=== PATIENT | female | born 1955 | race Caucasian/White ===

== ENCOUNTER 2017-08-07 12:17 | Emergency (ER) | payer MEDICARE, MEDICAID ==
[~2017-08-07] VITALS: Ht 152.4 cm; Wt 80.9 kg
[2017-08-07 12:29] VITALS: BP 165/89
--- NOTE | 2017-08-07 12:59 | RAD ---
Left wrist, 3 views, 10/07/2017: History: Wrist pain, injury There is cortical irregularity along the dorsal aspect of the triquetrum, probably old. An underlying degenerative cyst may be giving this appearance. No definite acute fracture or dislocation is identified. There is mild soft tissue swelling. IMPRESSION: No acute bony abnormality is detected.
[2017-08-07] MEDS ORDERED: HYDR-971 PO (13:07)
--- NOTE | 2017-08-07 13:07 | PHYS DOC ---
Past History Past Medical History: Arthritis, COPD, Diabetes Past Surgical History: Hysterectomy, Other Alcohol Use: Rarely Drug Use: None Adult General Chief Complaint Chief Complaint: WRIST PAIN HPI HPI Patient is a 62-year-old female presenting to the emergency department for evaluation of left wrist pain that started yesterday after lifting a heavy box. It starts over the radius and radiates towards the ulna. No weakness numbness or tingling. She has had a stress fracture before in the past on that wrist. No obvious deformity noted. Review of Systems Review of Systems Constitutional: Denies fever or chills [] Musculoskeletal: + joint pain [] Neurologic: Denies focal weakness or sensory changes [] Allergies Allergies Allergies Coded Allergies Type Severity Reaction Last Updated Verified sulfamethoxazole Allergy Unknown 08/07/17 Yes trimethoprim Allergy Unknown 08/07/17 Yes Physical Exam Physical Exam Constitutional: Well developed, well nourished, no acute distress, non-toxic appearance. [] Extremities: Pain to palpation over her scaphoid and there is pain with axial loading although there is no obvious deformity. Neurologic: Alert and oriented X 3, normal motor function, normal sensory function, no focal deficits noted. [] Current Patient Data Vital Signs Vital Signs Date Time Temp Pulse Resp B/P (MAP) Pulse Ox O2 Delivery O2 Flow Rate FiO2 08/07/17 12:29 98.6 109 20 96 Room Air EKG EKG [] Radiology/Procedures Radiology/Procedures Left knee, 3 views, 08/07/2017: History: Fall, knee pain No fracture or dislocation is identified. The soft tissues are unremarkable. IMPRESSION: No acute left knee abnormality is detected. DICTATED AND SIGNED BY: JEREMI LOVING MD DATE: 08/07/17 1257 Course & Med Decision Making Course & Med Decision Making X-ray negative and exam is benign such she'll be put in a wrist brace and told to follow with a primary care provider in one week as she could have a scaphoid fracture not seen on initial imaging. Patient aware and agreeable with plan for discharge and verbalized understanding of the need for short-term follow-up in the strict ED return precautions discussed worsening pain weakness or other general concerns. Dragon Disclaimer Dragon Disclaimer This chart was dictated in whole or in part using Voice Recognition software in a busy, high-work load, and often noisy Emergency Department environment. It may contain unintended and wholly unrecognized errors or omissions. Departure Departure: Impression: Primary Impression: Sprain of wrist, left Disposition: 01 HOME, SELF-CARE Condition: STABLE Referrals: PCP,ISAIAH (PCP) Patient Instructions: Wrist Pain Additional Instructions: TAKE 400MG OF IBUPROFEN EVERY 6 HOURS AND THE NORCO FOR BREAKTHROUGH PAIN. FOLLOW WITH A PCP IN 1 WEEK TO ENSURE IMPROVEMENT. THANK YOU! Scripts Hydrocodone Bit/Acetaminophen (NORCO 5-325 TABLET) 1 Each Tablet 1 TAB PO PRN Q6HRS Y for PAIN, #10 TAB 0 Refills Prov: NADYA QUEEN DO 08/07/17 Problem Qualifiers Primary Impression: Sprain of wrist, left Encounter type: initial encounter Qualified Codes: S63.502A - Unspecified sprain of left wrist, initial encounter NADYA QUEEN DO Aug 07, 2017 13:07
== END 2017-08-07 13:15 | disposition home or self-care (01) ==
LOC: ER 12:17
DX: S63.502A Unspecified sprain of left wrist, initial encounter (principal); E11.9 Type 2 diabetes mellitus without complications; J44.9 Chronic obstructive pulmonary disease, unspecified; M19.90 Unspecified osteoarthritis, unspecified site; Z88.1 Allergy status to other antibiotic agents; X58.XXXA Exposure to other specified factors, initial encounter; Y93.89 Activity, other specified; Y99.8 Other external cause status; Y92.89 Other specified places as the place of occurrence of the external cause
CPT/HCPCS: 29125; 73110; 99284-25

== ENCOUNTER 2017-08-15 11:35 | Emergency (ER) | payer MEDICARE, MEDICAID ==
[~2017-08-15 11:35] MED LIST: HYDR-971 PO
[2017-08-15 11:41] VITALS: BP 187/82
[2017-08-15] MEDS ORDERED: IV RINGERS SOLUTION,LACTATED 1,000 ML IV SCH (11:45)
[2017-08-15] MEDS ORDERED: ONDANSETRON PF 4 MG/2 ML VIAL. IV ONE (12:00)
[2017-08-15 12:09] LABS: BASO % 0 % (0-3); EOS % 0 % (0-3); HEMOGLOBIN 16.8 g/dL (12.0-15.5); LYMPH # 0.5 x10^3/uL (1.0-4.8); LYMPH % 3 % (24-48); MEAN CORPUSCULAR HEMOGLOBIN 32 pg (25-35); MEAN CORPUSCULAR HGB CONC 34 g/dL (31-37); MEAN CORPUSCULAR VOLUME 93 fL (79-100); MONO # 0.3 x10^3/uL (0.0-1.1); MONO % 2 % (0-9); NEUT # 13.4 x10^3uL (1.8-7.7); NEUT % 94 % (31-73); PLATELET COUNT 334 x10^3/uL (140-400); RED BLOOD COUNT 5.27 x10^6/uL (3.50-5.40); RED CELL DISTRIBUTION WIDTH 15.1 % (11.5-14.5); WHITE BLOOD COUNT 14.3 x10^3/uL (4.0-11.0)
[2017-08-15 12:28] LABS: ALBUMIN 3.8 g/dL (3.4-5.0); ALBUMIN/GLOBULIN RATIO 1.1 (1.0-1.7); CALCIUM 9.4 mg/dL (8.5-10.1); CREATININE 0.7 mg/dL (0.6-1.0); GFR 85.4; POTASSIUM 4.4 mmol/L (3.5-5.1); TOTAL BILIRUBIN 0.4 mg/dL (0.2-1.0); TOTAL PROTEIN 7.3 g/dL (6.4-8.2)
--- NOTE | 2017-08-15 13:28 | PHYS DOC ---
Past History Past Medical History: COPD, Hypertension Past Surgical History: Hysterectomy, Other Alcohol Use: Occasionally Drug Use: None Adult General Chief Complaint Chief Complaint: DIZZY/LIGHT HEADED HPI HPI Patient is a 62-year-old female brought to the ED from home by EMS with the complaint of vomiting and lightheadedness. Patient began to vomit in the middle the night last night. She believe she has vomited 20 or 30 times. No diarrhea. No fever. No else at home is sick. Her abdomen is sore after all the vomiting, but the vomiting started first and her abdomen doesn't hurt that bad. Review of Systems Review of Systems Constitutional: Denies fever or chills [] HENT: Denies nasal congestion or sore throat [] Respiratory: Denies cough or shortness of breath [] Cardiovascular: Denies chest pain GI: As in history of present illness : Denies dysuria or hematuria [] Musculoskeletal: Denies back pain or joint pain [] Integument: Denies rash or skin lesions [] Neurologic: Denies headache, focal weakness or sensory changes [] Current Medications Current Medications Current Medications Medications (Trade) Dose Ordered Sig/Nicolás Start Time Stop Time Status Last Admin Dose Admin Lactated Ringer's 1,000 ml @ 1,000 mls/hr Q1H 08/15/17 11:45 08/15/17 12:13 DC 08/15/17 11:55 1,000 MLS/HR Ondansetron HCl (Zofran) 4 mg 1X ONCE 08/15/17 12:00 08/15/17 12:01 DC Allergies Allergies Allergies Coded Allergies Type Severity Reaction Last Updated Verified sulfamethoxazole Allergy Unknown 08/07/17 Yes trimethoprim Allergy Unknown 08/07/17 Yes Physical Exam Physical Exam Constitutional: Well developed, well nourished, no acute distress, non-toxic appearance. Alert, mentating normally, no vomiting on arrival to the ED. HENT: Normocephalic, atraumatic, bilateral external ears normal, nose normal. [] Eyes: conjunctiva normal, no discharge. [] Neck: Normal range of motion, no stridor. [] Cardiovascular:Heart rate regular rhythm, no murmur not tachycardic Lungs & Thorax: Bilateral breath sounds clear to auscultation [] Abdomen: Bowel sounds normal, soft, nondistended, no masses, no pulsatile masses. Abdomen essentially nontender with no rebound or guarding. Skin: Warm, dry, no erythema, no rash. [] Extremities: No tenderness, no cyanosis, no clubbing, ROM intact, no edema. [] Neurologic: Alert and oriented X 3, normal motor function, no focal deficits noted. [] Current Patient Data Vital Signs Vital Signs Date Time Temp Pulse Resp B/P (MAP) Pulse Ox O2 Delivery O2 Flow Rate FiO2 08/15/17 11:41 98.1 16 96 Room Air Lab Results Laboratory Tests Test 08/15/17 11:55 White Blood Count 14.3 x10^3/uL (4.0-11.0) H Red Blood Count 5.27 x10^6/uL (3.50-5.40) Hemoglobin 16.8 g/dL (12.0-15.5) H Hematocrit 49.0 % (36.0-47.0) H Mean Corpuscular Volume 93 fL (79-100) Mean Corpuscular Hemoglobin 32 pg (25-35) Mean Corpuscular Hemoglobin Concent 34 g/dL (31-37) Red Cell Distribution Width 15.1 % (11.5-14.5) H Platelet Count 334 x10^3/uL (140-400) Neutrophils (%) (Auto) 94 % (31-73) H Lymphocytes (%) (Auto) 3 % (24-48) L Monocytes (%) (Auto) 2 % (0-9) Eosinophils (%) (Auto) 0 % (0-3) Basophils (%) (Auto) 0 % (0-3) Neutrophils # (Auto) 13.4 x10^3uL (1.8-7.7) H Lymphocytes # (Auto) 0.5 x10^3/uL (1.0-4.8) L Monocytes # (Auto) 0.3 x10^3/uL (0.0-1.1) Eosinophils # (Auto) 0.0 x10^3/uL (0.0-0.7) Basophils # (Auto) 0.0 x10^3/uL (0.0-0.2) Sodium Level 138 mmol/L (136-145) Potassium Level 4.4 mmol/L (3.5-5.1) Chloride Level 102 mmol/L (98-107) Carbon Dioxide Level 27 mmol/L (21-32) Anion Gap 9 (6-14) Blood Urea Nitrogen 12 mg/dL (7-20) Creatinine 0.7 mg/dL (0.6-1.0) Estimated GFR (Cockcroft-Gault) 85.4 BUN/Creatinine Ratio 17 (6-20) Glucose Level 178 mg/dL (70-99) H Calcium Level 9.4 mg/dL (8.5-10.1) Total Bilirubin 0.4 mg/dL (0.2-1.0) Aspartate Amino Transferase (AST) 18 U/L (15-37) Alanine Aminotransferase (ALT) 23 U/L (14-59) Alkaline Phosphatase 120 U/L (46-116) H Troponin I Quantitative < 0.017 ng/mL (0-0.055) Total Protein 7.3 g/dL (6.4-8.2) Albumin 3.8 g/dL (3.4-5.0) Albumin/Globulin Ratio 1.1 (1.0-1.7) Lipase 69 U/L (73-393) L EKG EKG 12-lead EKG read by me. Sinus rhythm. Heart rate 85. Right bundle branch block. There are T wave abnormalities consistent with repolarization change. There are no acute ST elevations or depressions. There are no ST or T wave changes indicative of ischemia or infarction. No STEMI. 1146[] Radiology/Procedures Radiology/Procedures [] Course & Med Decision Making Course & Med Decision Making Pertinent Labs and Imaging studies reviewed. (See chart for details) 62-year-old female visited with multiple episodes of vomiting and feeling dizzy and lightheaded. She was given a liter of IV fluids. She did not have any vomiting in the ED. Labs unremarkable for acute findings. She may have food poisoning or viral gastroenteritis. It seems like her symptoms are resolving. I believe she is stable for discharge. See instructions for plan. [] Dragon Disclaimer Dragon Disclaimer This chart was dictated in whole or in part using Voice Recognition software in a busy, high-work load, and often noisy Emergency Department environment. It may contain unintended and wholly unrecognized errors or omissions. Departure Departure: Impression: Primary Impression: Viral gastroenteritis Disposition: 01 HOME, SELF-CARE Condition: IMPROVED Referrals: PCP,ISAIAH (PCP) Patient Instructions: Viral Gastroenteritis, Wjbb-to-Edbh MJ MYERS MD Aug 15, 2017 13:28
--- NOTE | 2017-08-15 18:32 | EKG ---
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
== END 2017-08-15 13:48 | disposition home or self-care (01) ==
LOC: ER 11:35
DX: A08.4 Viral intestinal infection, unspecified (principal); I10 Essential (primary) hypertension; J44.9 Chronic obstructive pulmonary disease, unspecified; Z88.1 Allergy status to other antibiotic agents
CPT/HCPCS: 36415; 80053; 83690; 84484; 85025; 93005; 96360; 99285; J7120

== ENCOUNTER 2017-08-26 13:53 | Inpatient (IN) | payer MEDICAID, MEDICARE ==
[~2017-08-26] VITALS: Ht 152.4 cm; Wt 87.7 kg
[2017-08-26] VITALS (7 sets, daily range): BP systolic 153–192; BP diastolic 69–83
[2017-08-26] MEDS ORDERED: methylPREDNISolone SOD SUCC PF 125 MG/2 ML VIAL. IV ONE (14:30)
--- NOTE | 2017-08-26 14:35 | RAD ---
Portable chest, 08/26/2017: History: Respiratory distress The heart size and pulmonary vascularity are normal. No pulmonary infiltrates are seen. There is no evidence of pleural fluid. IMPRESSION: No acute cardiopulmonary abnormality is detected.
--- NOTE | 2017-08-26 14:40 | PHYS DOC ---
Past History Past Medical History: COPD, Hypertension Past Surgical History: Hysterectomy, Other Alcohol Use: None Drug Use: None Adult General Chief Complaint Chief Complaint: SHORTNESS OF BREATH HPI HPI Patient is a 62 year old female who presents with complaint of shortness of breath. Patient states that she started having symptoms yesterday but states that they became rapidly worse starting today. Patient has history of COPD. Patient states that she is not on oxygen dependent. The patient was brought to the emergency department by EMS. Patient was found to have low oxygen saturation in the 80s prior to arrival. Patient was placed on nasal cannula and improved oxygen saturations to 92%. Patient states that she took a breathing treatment at home with no improvement in symptoms. Patient denies any associated fevers or productive cough. Patient states that she started developing chest tightness earlier today with her worsening shortness of breath. Patient states that she currently does not have a primary physician. Review of Systems Review of Systems Constitutional: Denies fever or chills [] Eyes: Denies change in visual acuity, redness, or eye pain [] HENT: Denies nasal congestion or sore throat [] Respiratory: Shortness of breath[] Cardiovascular: Chest tightness[] GI: Denies abdominal pain, nausea, vomiting, bloody stools or diarrhea [] : Denies dysuria or hematuria [] Musculoskeletal: Denies back pain or joint pain [] Integument: Denies rash or skin lesions [] Neurologic: Denies headache, focal weakness or sensory changes [] Current Medications Current Medications Current Medications Medications (Trade) Dose Ordered Sig/Nicolás Start Time Stop Time Status Last Admin Dose Admin Albuterol/ Ipratropium (Duoneb) 6 ml 1X ONCE 08/26/17 14:45 08/26/17 14:46 Methylprednisolone Sodium Succinate (SOLU-Medrol 125MG VIAL) 125 mg 1X ONCE 08/26/17 14:30 08/26/17 14:31 DC Allergies Allergies Allergies Coded Allergies Type Severity Reaction Last Updated Verified sulfamethoxazole Allergy Unknown 08/07/17 Yes trimethoprim Allergy Unknown 08/07/17 Yes Physical Exam Physical Exam Constitutional: Alert, afebrile, appears in mild to moderate respiratory distress. [] HENT: Normocephalic, atraumatic, bilateral external ears normal, oropharynx moist, no oral exudates, nose normal. [] Eyes: PERRLA, EOMI, conjunctiva normal, no discharge. [] Neck: Normal range of motion, no tenderness, supple, no stridor. [] Cardiovascular: Tachycardia, regular rhythm, no murmur [] Lungs & Thorax: Mild to moderate restriction of air movement bilaterally, expiratory wheezes bilaterally, no rales[] Abdomen: Bowel sounds normal, soft, no tenderness, no masses, no pulsatile masses. [] Skin: Warm, dry, no erythema, no rash. [] Back: No tenderness, no CVA tenderness. [] Extremities: No tenderness, no cyanosis, no clubbing, ROM intact, no edema. [] Neurologic: Alert and oriented X 3, normal motor function, normal sensory function, no focal deficits noted. [] Current Patient Data Vital Signs Vital Signs Date Time Temp Pulse Resp B/P (MAP) Pulse Ox O2 Delivery O2 Flow Rate FiO2 08/26/17 14:31 100 20 111/67 (82) 92 Nasal Cannula 2.0 08/26/17 13:53 98.0 EKG EKG Interpreted by me:[] Radiology/Procedures Radiology/Procedures [address] [address] IMAGING REPORT Signed PATIENT: RIMA CHIU ACCOUNT: [id number] : 1955 LOCATION: ER AGE: 62 SEX: F EXAM STATUS: REG ER ORD. PHYSICIAN: PRATIK KRISHNA MD REASON: respiratory distress PROCEDURE: PORTABLE CHEST 1V Portable chest, 08/26/2017: History: Respiratory distress The heart size and pulmonary vascularity are normal. No pulmonary infiltrates are seen. There is no evidence of pleural fluid. IMPRESSION: No acute cardiopulmonary abnormality is detected. DICTATED AND SIGNED BY: JEREMI LOVING MD DATE: 08/26/17 6214 CC: PRATIK KRISHNA MD; PCP,NO ~ [] Course & Med Decision Making Course & Med Decision Making Pertinent Labs and Imaging studies reviewed. (See chart for details) Patient was given albuterol and Solu-Medrol in the emergency department. The patient's chest x-ray was read as negative, however on my interpretation there may be a subtle infiltrate in the left lower lobe. Patient also has evidence of leukocytosis, tachycardia, and lactic acidosis on her workup, raising concern for severe sepsis. Patient started on a 30 mL per kilo bolus in the emergency department. Patient also started on IV Levaquin after blood cultures were drawn for treatment. I spoke with Dr. Spears who accepted care of patient in hospital. Dragon Disclaimer Dragon Disclaimer This chart was dictated in whole or in part using Voice Recognition software in a busy, high-work load, and often noisy Emergency Department environment. It may contain unintended and wholly unrecognized errors or omissions. Departure Departure: Impression: Primary Impression: Community acquired pneumonia Additional Impressions: Severe sepsis COPD with acute exacerbation Hypoxia Alcohol intoxication Disposition: ADMITTED INPATIENT Admitting Physician: Massimo Spears Condition: GUARDED Referrals: PCP,NO (PCP) Problem Qualifiers Primary Impression: Community acquired pneumonia Laterality: left Lung location: lower lobe of lung Qualified Codes: J18.1 - Lobar pneumonia, unspecified organism Additional Impressions: Alcohol intoxication Complication of substance-induced condition: uncomplicated Qualified Codes: F10.920 - Alcohol use, unspecified with intoxication, uncomplicated PRATIK KRISHNA MD Aug 26, 2017 14:40
[2017-08-26 14:44] LABS: BASO # 0.2 x10^3/uL (0.0-0.2); BASO % 1 % (0-3); EOS # 0.1 x10^3/uL (0.0-0.7); EOS % 1 % (0-3); HEMOGLOBIN 15.6 g/dL (12.0-15.5); LYMPH # 1.8 x10^3/uL (1.0-4.8); LYMPH % 13 % (24-48); MEAN CORPUSCULAR HEMOGLOBIN 32 pg (25-35); MEAN CORPUSCULAR HGB CONC 34 g/dL (31-37); MEAN CORPUSCULAR VOLUME 93 fL (79-100); MONO # 0.7 x10^3/uL (0.0-1.1); MONO % 5 % (0-9); NEUT # 11.2 x10^3uL (1.8-7.7); NEUT % 80 % (31-73); PLATELET COUNT 288 x10^3/uL (140-400); RED BLOOD COUNT 4.93 x10^6/uL (3.50-5.40); RED CELL DISTRIBUTION WIDTH 14.8 % (11.5-14.5)
[2017-08-26] MEDS ORDERED: IPRATRPIUM/ALBUTEROL 0.5/2.5MG 3 ML NEBU. NEB ONE (14:45)
[2017-08-26 14:55] LABS: ALBUMIN 3.3 g/dL (3.4-5.0); ALBUMIN/GLOBULIN RATIO 0.9 (1.0-1.7); CREATININE 0.9 mg/dL (0.6-1.0); GFR 63.9; TOTAL BILIRUBIN 0.2 mg/dL (0.2-1.0); TOTAL PROTEIN 7.1 g/dL (6.4-8.2)
[2017-08-26] MEDS: IV NORMAL SALINE 1,000ML 1,000 ML IV SCH ×4 (15:41→19:18)
[2017-08-26] MEDS ORDERED: ONDANSETRON PF 4 MG/2 ML VIAL. IV PRN (16:00)
[2017-08-26] MEDS ORDERED: ACETAMINOPHEN 325 MG TABLET PO PRN (16:00)
[2017-08-26] MEDS ORDERED: IPRATRPIUM/ALBUTEROL 0.5/2.5MG 3 ML NEBU. NEB SCH ×2 (16:00→20:00)
[2017-08-26 16:19] LABS: BILIRUBIN,URINE NEG (NEG); CLARITY,URINE HAZY; COLOR,URINE YELLOW; GLUCOSE,URINE NEG (NEG); NITRITE,URINE NEG (NEG); UROBILINOGEN,URINE 0.2 mg/dL (0.2 mg/dL)
[2017-08-26 16:20] LABS: BACTERIA,URINE FEW /HPF (0-FEW); SQUAMOUS EPITHELIAL CELL,UR MOD /LPF
[2017-08-26] MEDS ORDERED: ALBUTEROL SULFATE 2.5 MG/3 ML NEBU. NEB PRN (17:00)
[2017-08-26] MEDS ORDERED: LORazepam 2 MG/ML VIAL IV PRN (17:00)
[2017-08-26] MEDS ORDERED: DOCU-153 PO (17:25)
[2017-08-26] MEDS ORDERED: OXYB5TAB PO (17:25)
[2017-08-26] MEDS ORDERED: PRAZ2CAP2 PO (17:25)
[2017-08-26] MEDS ORDERED: TRAZ-90 PO (17:25)
[2017-08-26] MEDS ORDERED: CETI10TA16 PO (17:25)
[2017-08-26] MEDS ORDERED: HYDR-2758 PO (17:25)
[2017-08-26] MEDS ORDERED: BUPR-192 PO (17:25)
[2017-08-26] MEDS ORDERED: POTASSIUM CHLORIDE 20 MEQ TABLET.ER. PO ONE (17:30)
[2017-08-26] MEDS: methylPREDNISolone SOD SUCC PF 40 MG/ML VIAL. IV SCH (18:08)
[2017-08-26] MEDS: cloNIDine HCL 0.1 MG TABLET PO PRN (18:11)
--- NOTE | 2017-08-26 19:17 | EKG ---
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
[2017-08-26] MEDS: IPRATRPIUM/ALBUTEROL 0.5/2.5MG 3 ML NEBU. NEB SCH (20:18)
[2017-08-26] MEDS: NICOTINE 21MG PATCH. TD SCH (20:33)
[2017-08-26] MEDS: LACTOBACILLUS ACIDOPH & BULGAR 1 TABLET. PO SCH (20:33)
[2017-08-26 22:37] LABS: POTASSIUM ISTAT 4.2 mmol/L (3.5-5.0)
[2017-08-26 22:38] LABS: HEMOGLOBIN ISTAT 14.6 gm/dL
[2017-08-27] VITALS (20 sets, daily range): BP systolic 143–189; BP diastolic 67–92
[2017-08-27] MEDS: methylPREDNISolone SOD SUCC PF 40 MG/ML VIAL. IV SCH ×4 (00:11→18:48)
[2017-08-27] MEDS: IV NORMAL SALINE 1,000ML 1,000 ML IV SCH ×2 (03:14→08:00)
[2017-08-27] MEDS: IPRATRPIUM/ALBUTEROL 0.5/2.5MG 3 ML NEBU. NEB SCH ×4 (05:34→21:23)
[2017-08-27 06:01] LABS: BASO # 0.1 x10^3/uL (0.0-0.2); BASO % 0 % (0-3); EOS % 0 % (0-3); HEMATOCRIT 44.5 % (36.0-47.0); HEMOGLOBIN 14.9 g/dL (12.0-15.5); LYMPH # 0.9 x10^3/uL (1.0-4.8); LYMPH % 5 % (24-48); MEAN CORPUSCULAR HEMOGLOBIN 32 pg (25-35); MEAN CORPUSCULAR HGB CONC 33 g/dL (31-37); MEAN CORPUSCULAR VOLUME 95 fL (79-100); MONO # 0.1 x10^3/uL (0.0-1.1); MONO % 1 % (0-9); NEUT # 16.9 x10^3uL (1.8-7.7); NEUT % 94 % (31-73); PLATELET COUNT 279 x10^3/uL (140-400); RED BLOOD COUNT 4.69 x10^6/uL (3.50-5.40); RED CELL DISTRIBUTION WIDTH 14.6 % (11.5-14.5)
[2017-08-27 06:23] LABS: ALBUMIN 3.1 g/dL (3.4-5.0); ALBUMIN/GLOBULIN RATIO 0.8 (1.0-1.7); CALCIUM 8.7 mg/dL (8.5-10.1); GFR 56.6; POTASSIUM 4.3 mmol/L (3.5-5.1); TOTAL BILIRUBIN 0.2 mg/dL (0.2-1.0)
[2017-08-27] MEDS: NICOTINE 21MG PATCH. TD SCH (08:09)
[2017-08-27] MEDS: LACTOBACILLUS ACIDOPH & BULGAR 1 TABLET. PO SCH ×2 (08:09→20:26)
[2017-08-27] MEDS: cloNIDine HCL 0.1 MG TABLET PO PRN ×2 (08:45→17:10)
[2017-08-27 08:47] LABS: % BANDS 3 % (0-9); % LYMPHS 4 % (24-48); % SEGS 93 % (35-66); PLATELET CLUMP PRESENT; PLT ESTIMATE ADEQUATE (ADEQUATE)
[2017-08-27] MEDS ORDERED: MVI, ADULT NO.4 WITH VIT K 10 ML, THIAMINE 100 MG, FOLIC ACID 1 MG in IV NORMAL SALINE ... IV SCH ×4 (09:00)
[2017-08-27] MEDS: OXYBUTYNIN CHLORIDE 5 MG TABLET PO SCH (09:16)
[2017-08-27] MEDS: buPROPion XL 150 MG TAB.ER.24H PO SCH (09:16)
[2017-08-27] MEDS: DOCUSATE SODIUM 100 MG CAPSULE PO SCH ×2 (09:16→20:26)
[2017-08-27] MEDS: amLODIPine BESYLATE 10 MG TABLET PO SCH (18:48)
[2017-08-27] MEDS: SODIUM BICARBONATE IVF 150 MEQ in IV STERILE WATER 1,000 ML IV SCH (19:06)
[2017-08-27] MEDS: traZODone 100 MG TABLET. PO SCH (20:26)
[2017-08-27] MEDS: PRAZOSIN 1 MG CAPSULE. PO SCH (20:27)
[2017-08-28] VITALS (13 sets, daily range): BP systolic 124–160; BP diastolic 63–82
[2017-08-28] MEDS: methylPREDNISolone SOD SUCC PF 40 MG/ML VIAL. IV SCH ×3 (00:29→12:02)
[2017-08-28] MEDS: IPRATRPIUM/ALBUTEROL 0.5/2.5MG 3 ML NEBU. NEB SCH ×4 (05:43→19:55)
[2017-08-28 06:00] LABS: ALBUMIN/GLOBULIN RATIO 0.9 (1.0-1.7); CALCIUM 8.8 mg/dL (8.5-10.1); CREATININE 0.7 mg/dL (0.6-1.0); GFR 85.4; POTASSIUM 3.7 mmol/L (3.5-5.1); TOTAL BILIRUBIN 0.1 mg/dL (0.2-1.0); TOTAL PROTEIN 6.5 g/dL (6.4-8.2)
[2017-08-28 06:15] LABS: BASO # 0.1 x10^3/uL (0.0-0.2); BASO % 0 % (0-3); EOS % 0 % (0-3); HEMATOCRIT 44.1 % (36.0-47.0); HEMOGLOBIN 14.4 g/dL (12.0-15.5); LYMPH # 0.7 x10^3/uL (1.0-4.8); LYMPH % 3 % (24-48); MEAN CORPUSCULAR HEMOGLOBIN 31 pg (25-35); MEAN CORPUSCULAR HGB CONC 33 g/dL (31-37); MEAN CORPUSCULAR VOLUME 95 fL (79-100); MONO # 0.5 x10^3/uL (0.0-1.1); MONO % 2 % (0-9); NEUT # 23.6 x10^3uL (1.8-7.7); NEUT % 95 % (31-73); PLATELET COUNT 265 x10^3/uL (140-400); RED BLOOD COUNT 4.67 x10^6/uL (3.50-5.40); RED CELL DISTRIBUTION WIDTH 14.8 % (11.5-14.5); WHITE BLOOD COUNT 24.9 x10^3/uL (4.0-11.0)
[2017-08-28] MEDS ORDERED: FLU VACC QS2017-18 (36MOS+)/PF 0.5 ML SYRINGE. VAX IM ONE (09:00)
[2017-08-28] MEDS: DOCUSATE SODIUM 100 MG CAPSULE PO SCH ×2 (09:16→21:41)
[2017-08-28] MEDS: LACTOBACILLUS ACIDOPH & BULGAR 1 TABLET. PO SCH ×2 (09:16→21:41)
[2017-08-28] MEDS: OXYBUTYNIN CHLORIDE 5 MG TABLET PO SCH (09:17)
[2017-08-28] MEDS: amLODIPine BESYLATE 10 MG TABLET PO SCH (09:17)
[2017-08-28] MEDS: buPROPion XL 150 MG TAB.ER.24H PO SCH (09:17)
[2017-08-28] MEDS: NICOTINE 21MG PATCH. TD SCH (09:17)
[2017-08-28] MEDS: SODIUM BICARBONATE IVF 150 MEQ in IV STERILE WATER 1,000 ML IV SCH (12:02)
[2017-08-28] MEDS ORDERED: DEXTROSE 50% 25 GM / 50ML DISP.SYRIN. IV PRN (13:30)
--- NOTE | 2017-08-28 13:31 | EKG ---
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
--- NOTE | 2017-08-28 14:59 | HP ---
ADMIT DATE: HISTORY OF PRESENT ILLNESS: The patient is a 62-year-old female patient who was brought to the Emergency Room by emergency medical services with a complaint of shortness of breath. She states that her symptoms started a few days ago and her symptoms have worsened the day before admission. She is known to have COPD, but she is not on any oxygen treatment and she was found to be hypoxic with an oxygen saturation of only 80% prior to arrival. She was placed on nasal cannula and improved with an oxygen saturation up to 92%. She stated that she has been taking her breathing treatments without much improvement in her symptoms. The patient denied any fever, but did say that she has cough that initially was yellowish. She did develop chest tightness with worsening of her shortness of breath. She was evaluated in the Emergency Room and was started on antibiotic as well as steroids and bronchodilator. Her initial lab work showed that she has hypokalemia. Her lactic acid was slightly elevated on arrival and has increased to 3.9 despite treatment with IV fluid, although the patient herself has never been hypotensive. PAST MEDICAL HISTORY: Significant for type 2 diabetes mellitus for which she is on metformin, hypertension, osteoarthritis, chronic back pain. She also has COPD, overactive bladder and bipolar disorder. PAST SURGICAL HISTORY: Significant for total abdominal hysterectomy without oophorectomy, bilateral cataract extraction, cholecystectomy, colonoscopy. ALLERGIES: SHE IS ALLERGIC TO BACTRIM. MEDICATIONS: She is currently on following medications: She is on Wellbutrin extended release 150 mg once a day, Colace 100 mg twice a day, hydrocodone/APAP 5/325 one tablet every 6 hours as needed, oxybutynin chloride 5 mg daily, and prazosin 2 mg once a day and trazodone 200 mg at bedtime. FAMILY HISTORY: She has 3 brothers and 1 sister, all older. Her father at age of 44 because of myocardial infarction. Her mother is still alive at age of 84, currently resides in a senior care, has dementia and bipolar disorder. SOCIAL HISTORY: She is , has two daughters and one son. She is a current smoker, has been smoking since she was 27 years old. She smokes about half a pack a day. She drinks alcohol occasionally. Does not use any drugs. She is on disability for her chronic back pain and bilateral knee pain. She uses a walker at home and currently lives with her son. REVIEW OF SYSTEMS: The patient denied any blurring of vision. She has had bilateral cataract extraction and according to her, she has also laser photocoagulation. She is deaf in the right ear. Did complain of stuffy nose, but denied any nosebleeds or postnasal drip. Denied any sore throat, sore tongue, toothache, hoarseness of voice or difficulty swallowing. Denied any nausea, vomiting, diarrhea or constipation. Denied any hematemesis, melena or hematochezia. Denied any dysuria, frequency or hematuria. Denied any chills, rigors or fever. Did complain of chest pain and shortness of breath. Denied any diaphoresis or radiation of pain to left arm, left shoulder or left-sided neck. PHYSICAL EXAMINATION: GENERAL: On arrival to the Emergency Room, she was tachypneic. VITAL SIGNS: Her heart rate was 107, blood pressure was 163/78, temperature was 98, respiratory rate was 25, and oxygen saturation initially was 87 on room air that improved on 2 liters of oxygen to 92%. HEENT: Showed normocephalic, atraumatic. NECK: Supple. HEART: Showed normal first and second heart sounds with no gallop, rub or murmur. CHEST: Shows central trachea, equal bilateral chest expansion, air entry, vesicular sounds with expiratory wheezes bilaterally. No crepitation. ABDOMEN: Distended, soft, nontender. No guarding or rigidity. No organomegaly. All hernial orifices intact. Bowel sounds normal. NEUROLOGIC: She was awake, alert, responding appropriately. Cranial nerves intact. EXTREMITIES: She moves extremities without difficulty. There was no focal motor or sensory deficit. LABORATORY DATA: On arrival showed that her white cell count was 14,000, hemoglobin 15.6, hematocrit 46, MCV 93, and platelet count 288,000 with normal manual differential. Her serum sodium was 142, potassium 3, chloride 104, bicarbonate 27, anion gap of 11, BUN 5, creatinine 0.9, estimated GFR was 64 mL per minute. Her glucose 144. Calcium was 9. Total bilirubin, AST, ALT, alkaline phosphatase were normal. Her total protein was 7.1, albumin was 3.3. Her urinalysis showed the urine was yellow, hazy with a pH of 6, specific gravity 1.005. The urine was negative for protein, glucose, ketones, blood, nitrite, bilirubin, and there was trace of leukocyte esterase, 3-5 rbc's, 5-10 wbc's, very few bacteria. Her urine toxicology screen was positive for blood alcohol level of 108. The nasal screen for MRSA by PCR was negative. Her chest x-ray showed that heart size and pulmonary vascularity are normal. No pulmonary infiltrates are seen. There is no evidence of pleural fluid with no acute cardiopulmonary abnormalities detected. ASSESSMENT AND PLAN: In summary, this is a 62-year-old female patient who was admitted with COPD exacerbation. She was found to have also with acute hypoxic respiratory failure, hypokalemia and lactic acidosis. Her serum lactic acid initially was 3 millimoles per liter with normal range 0.4-2. ____ about this finding as she did not tell us about the fact that she was on metformin and her blood pressure if anything was actually on the high side, we did actually start her on IV fluid. Continue with IV levofloxacin. We will start and increase her Solu-Medrol 60 mg every 6 hours. Continue with bronchodilator. Continue with all her other medications. EDOUARD HERRERA MD DR: FELA/reshma JOB#: [id number] / [id number]
[2017-08-28] MEDS ORDERED: METF500T4 PO (15:07)
[2017-08-28] MEDS: INSULIN ASPART 300 UNITS/3 ML INSULN.PEN SQ SCH (17:06)
[2017-08-28] MEDS: traZODone 100 MG TABLET. PO SCH (21:41)
[2017-08-28] MEDS: PRAZOSIN 1 MG CAPSULE. PO SCH (21:43)
--- NOTE | 2017-08-28 23:53 | PN ---
DATE: 08/28/2017 SUBJECTIVE: The patient is sitting in her chair comfortably in no apparent distress. On questioning her, she stated she is feeling much, much better, has been up and about to walk with physical therapy. She did complain of some chest discomfort and stated that her father at the age of 44 because of myocardial infarction. She was concerned that she might have also problem with her heart; however, her shortness of breath, chest tightness, and wheezing has largely improved. Unfortunately, she continued to have lactic acidosis, in fact lactic acid went up to 4 and came down with bicarbonate drip to 3.5. On questioning her directly, transpired that she was actually on metformin and she took it last time on Wednesday. She did confirm that she has some at home and she has been taking it, although when we spoke to [facility], the last time she filled it was on March of this year. PHYSICAL EXAMINATION: GENERAL: When I examined her this afternoon, she looked well and was clearly in no apparent respiratory distress, slightly pale, but no jaundice, cyanosis, or thyromegaly. No jugular venous distention. No limb edema. VITAL SIGNS: Her heart rate was 100, blood pressure 137/73, temperature was 97.8, respiratory rate was 20, and oxygen saturation was 95% on 2 liters of oxygen. HEAD, EYES, EARS, NOSE, AND THROAT: Showed normocephalic, atraumatic. NECK: Supple. HEART: Showed normal first and second heart sounds with no gallop, rub, or murmur. CHEST: Clear to auscultation. No crepitation or rhonchi. ABDOMEN: Distended, soft, nontender. No guarding or rigidity. No organomegaly. Hernial orifices intact. Bowel sounds normal. NEUROLOGIC: She is awake, alert, responding appropriately. Cranial nerves intact. She moves extremities without difficulty. She ambulates with a walker. Her intake over the last 24 hour was 3700, no output was recorded. LABORATORY DATA: As of this morning showed that her serum sodium was 139, potassium 3.7, chloride 103, bicarbonate 26, anion gap of 10, BUN 10, creatinine 0.7, estimated GFR was 85 mL per minute. Her blood sugar was 285, calcium was 8.8, magnesium 2. Total bilirubin, AST, ALT, alkaline phosphatase were normal. Her LDH was 151. Total protein was 6.5, albumin 3, and lactic acid was 3.4. ASSESSMENT: Acute hypoxic respiratory failure, chronic obstructive pulmonary disease exacerbation, acute bronchitis, lactic acidosis, probably ____ She was on metformin. She has never had any evidence of ____ in fact if anything, she is hypertensive. Her blood sugar is not optimally controlled. Other medical problems include osteoarthritis, chronic back pain, bipolar disorder, and overactive bladder. PLAN: My plan is to arrange for her to have a 12-lead EKG and do at least 2 sets of cardiac enzymes. We will consult the Cardiology team. Continue with the bicarb drip. I will cut down on her steroids and repeat all her lab works tomorrow. EDOUARD HERRERA MD DR: FELA/reshma JOB#: [id number] / [id number]
[2017-08-29] MEDS: SODIUM BICARBONATE IVF 150 MEQ in IV STERILE WATER 1,000 ML IV SCH (03:17)
--- NOTE | 2017-08-29 03:25 | PN ---
DATE: 08/28/2017 I unfortunately have missed her yesterday, but I spoke with Renetta yesterday and realized ____ she is on metformin and apparently it was not in her list, she did not volunteer with the information and nursing staff, apparently did not realize that she was on metformin. We did actually continue her bronchodilator as well as IV fluid; however, her lactic acid actually has risen, so we did start her on bicarbonate drip. Meanwhile, we will continue with all other treatment and the patient actually did very well, although I have not seen her personally yesterday except talking to the nursing staff. She continued to be somewhat hypertensive with a blood pressure between 160 and 170 systolic. However, she continued to be afebrile, has been up and about walking. Her wheezing is much better according to the nursing staff, so we decided to continue with the bicarbonate drip. Continue with IV Solu-Medrol, IV Levaquin and bronchodilator. ASSESSMENT: 1. Acute hypoxic respiratory failure. 2. Chronic obstructive pulmonary disease exacerbation, ____ that has resolved. Lactic acidosis continued to persist and for which we started her on bicarb drip. Other medical problems included type 2 diabetes mellitus, hypertension, osteoarthritis, chronic back pain, bipolar disorder and overactive bladder. EDOUARD HERRERA MD DR: FELA/reshma JOB#: [id number] / [id number]
[2017-08-29 04:53] VITALS: BP 147/75
[2017-08-29] MEDS: IPRATRPIUM/ALBUTEROL 0.5/2.5MG 3 ML NEBU. NEB SCH ×4 (06:07→21:06)
[2017-08-29 06:24] LABS: HEMATOCRIT 42.9 % (36.0-47.0); HEMOGLOBIN 14.2 g/dL (12.0-15.5); RED BLOOD COUNT 4.6 x10^6/uL (3.50-5.40); WHITE BLOOD COUNT 22.1 x10^3/uL (4.0-11.0)
[2017-08-29 06:38] LABS: CALCIUM 8.8 mg/dL (8.5-10.1); CREATININE 0.7 mg/dL (0.6-1.0); GFR 85.4; POTASSIUM 3.5 mmol/L (3.5-5.1); TOTAL BILIRUBIN 0.2 mg/dL (0.2-1.0); TOTAL PROTEIN 5.9 g/dL (6.4-8.2)
[2017-08-29] MEDS: INSULIN ASPART 300 UNITS/3 ML INSULN.PEN SQ SCH ×3 (07:30→17:04)
--- NOTE | 2017-08-29 07:49 | PDOC ---
PROVIDER NOTE PROVIDER NOTE PROVIDER NOTE Late entry for 08/28/2017 Reason for consultation chest pain Mrs. Buenrostro is a 62-year-old woman who comes into the hospital in the setting of progressive dyspnea. She's had some intermittent chest pain which occasionally is worsened with movement but also occurs at rest. She has multiple risk factors and therefore cardiology was asked to comment on her wrist ratification. At home she reports exertional dyspnea. She denies any palpitations or syncope. She's never had any prior cardiac interventions. Past medical history #1 hypertension #2 COPD #3 tobacco abuse Social history patient denies any illicit drug use. Allergies to sulfa and trimethoprim Significant family history for coronary artery disease. Review of systems negative for 10 out of 14 systems reviewed unless otherwise mentioned above in history of present illness Constitutional: Well developed, well nourished, no acute distress, non-toxic appearance, positive interaction, playful. HENT: Normocephalic, atraumatic, oropharynx moist, no oral exudates, nose normal. Eyes: PERLL, EOMI, conjunctiva normal, no discharge. Neck: Normal range of motion, no tenderness, supple, no stridor. Cardiovascular: Normal heart rate, normal rhythm, no murmurs, no rubs, no gallops. Thorax and Lungs:Bilateral rhonchi. Abdomen: Bowel sounds normal, soft, no tenderness, no masses, no pulsatile masses. Skin: Warm, dry, no erythema, no rash. Back: No tenderness, no CVA tenderness. Extremeties: Intact distal pulses, no tenderness, no cyanosis, no clubbing, ROM intact, no edema. Musculoskeletal: Good ROM in all major joints, no tenderness to palpation or major deformities noted. Neurologic: Alert and oriented X 3, normal motor function, normal sensory function, no focal deficits noted. Psychologic: Affect normal, judgement normal, mood normal. Diagnostic testing reviewed: White blood cell count elevated in the setting of steroids for acute COPD exacerbation Creatinine within normal limits. Cardiac enzymes negative 2 Sinus tachycardia with right bundle-branch block on EKG without any ischemic findings Impression: 1. Atypical chest pain with multiple risk factors 2. Acute exacerbation of COPD 3. Hypertension 4. Family history of coronary artery disease Recommendations: 1. We will plan for a myocardial perfusion study tomorrow to rule out any significant pathology in light of the patient's significant family history and risk factors. Thank you for this consultation. SYLVIA CRANDALL MD Aug 29, 2017 07:49
[2017-08-29 08:24] VITALS: BP 152/70
[2017-08-29] MEDS: OXYBUTYNIN CHLORIDE 5 MG TABLET PO SCH (08:28)
[2017-08-29] MEDS: DOCUSATE SODIUM 100 MG CAPSULE PO SCH ×2 (08:28→20:42)
[2017-08-29] MEDS: LACTOBACILLUS ACIDOPH & BULGAR 1 TABLET. PO SCH ×2 (08:28→20:42)
[2017-08-29] MEDS: amLODIPine BESYLATE 10 MG TABLET PO SCH (08:33)
[2017-08-29] MEDS: NICOTINE 21MG PATCH. TD SCH (08:35)
[2017-08-29] MEDS: buPROPion XL 150 MG TAB.ER.24H PO SCH (08:35)
[2017-08-29] MEDS ORDERED: methylPREDNISolone SOD SUCC PF 40 MG/ML VIAL. IV SCH ×2 (09:00)
[2017-08-29 11:03] VITALS: BP 118/59
[2017-08-29 15:54] VITALS: BP 126/64
[2017-08-29 17:10] LABS: HEMOGLOBIN A1C 5.9 % (4.8-5.6)
[2017-08-29 19:30] VITALS: BP 142/96
[2017-08-29] MEDS: PRAZOSIN 1 MG CAPSULE. PO SCH (20:41)
[2017-08-29] MEDS: traZODone 100 MG TABLET. PO SCH (20:41)
[2017-08-29 23:03] VITALS: BP 108/62
--- NOTE | 2017-08-29 23:29 | PN ---
DATE: 08/29/2017 SUBJECTIVE: The patient is sitting comfortably in her chair, in no apparent distress, has been up whole the day in her chair. Her oxygen is down to 1 liter. She was seen by the parole hearing officer and she was scheduled for nuclear stress test tomorrow. Her lab work showed that her anion gap has resolved and has normalized actually at 9, anion gap today is 7, and her bicarbonate is up to 32. I did put an order for a stat lactic acid, which most likely secondary to type B lactic acidosis as she was on metformin. PHYSICAL EXAMINATION: GENERAL: When I examined her, she looked well and was clearly in no apparent respiratory distress, pale, but no jaundice, cyanosis, or thyromegaly. No jugular venous distention. No limb edema. VITAL SIGNS: Her heart rate was 102, blood pressure was 118/59, temperature was 97.9, respiratory rate 24, and oxygen saturation was 94% on 1 liter of oxygen. HEAD, EYES, EARS, NOSE AND THROAT: Showed normocephalic, atraumatic. NECK: Supple. HEART: Showed normal first and second heart sounds with no gallop, rub or murmur. CHEST: Shows central trachea, bilateral chest expansion, air entry, vesicular breath sounds. No crepitation or rhonchi. ABDOMEN: Distended, soft, and nontender. No guarding or rigidity. No organomegaly. Hernial orifices intact. Bowel sounds normal. NEUROLOGIC: She was awake, alert, responding appropriately. Cranial nerves intact. EXTREMITIES: She moves extremities without difficulty. She ambulates without assistance or assistive devices. Her intake over the last 24 hours was 4315, no output was recorded. LABORATORY DATA: Her lab work as of this morning showed a white cell count of 22,100, hemoglobin 14.2, hematocrit 42.9, MCV 93, and platelet count 241,000. Her serum sodium was 142, potassium 3.5, chloride 103, bicarbonate 32, anion gap of 7, BUN 14, creatinine 0.7, estimated GFR was 85 mL per minute. Her glucose was 125, calcium was 8.8. Total bilirubin, AST, ALT, alkaline phosphatase were normal. Total protein was 5.9, albumin 3. TSH was 1.189. Her blood cultures are so far negative and her urine culture has grown only mixed urogenital jose alfredo about 25,000. ASSESSMENT: 1. Acute hypoxic respiratory failure. 2. Chronic obstructive pulmonary disease exacerbation. 3. High anion gap lactic acidosis, most likely due to a type B metformin-induced. 4. Type 2 diabetes mellitus. 5. Hypertension. 6. Generalized osteoarthritis. 7. Chronic back pain. 8. Bipolar disorder. 9. Overactive bladder. PLAN: To arrange for her to check a stat lactic acid and if it is normalized, we will discontinue the bicarbonate drip. EDOUARD HERRERA MD DR: FELA/reshma JOB#: [id number] / [id number]
[2017-08-30] MEDS: IPRATRPIUM/ALBUTEROL 0.5/2.5MG 3 ML NEBU. NEB SCH ×2 (05:20→11:22)
[2017-08-30 05:52] VITALS: BP 120/68
[2017-08-30 06:47] LABS: HEMATOCRIT 44.3 % (36.0-47.0); HEMOGLOBIN 14.7 g/dL (12.0-15.5); RED BLOOD COUNT 4.72 x10^6/uL (3.50-5.40); RED CELL DISTRIBUTION WIDTH 14.8 % (11.5-14.5); WHITE BLOOD COUNT 13.6 x10^3/uL (4.0-11.0)
[2017-08-30 06:54] LABS: CALCIUM 8.9 mg/dL (8.5-10.1); CREATININE 0.7 mg/dL (0.6-1.0); GFR 85.4; POTASSIUM 3.4 mmol/L (3.5-5.1)
[2017-08-30] MEDS: INSULIN ASPART 300 UNITS/3 ML INSULN.PEN SQ SCH ×2 (07:30→12:06)
[2017-08-30] MEDS ORDERED: predniSONE 20 MG TABLET PO SCH (09:00)
[2017-08-30] MEDS ORDERED: REGADENOSON 0.4 MG/5 ML DISP.SYRIN. IV ONE (09:45)
--- NOTE | 2017-08-30 10:47 | PDOC ---
PROGRESS NOTES Diagnosis Problem Problems Medical Problems: (1) Alcohol intoxication Status: Acute (2) Community acquired pneumonia Status: Acute (3) COPD with acute exacerbation Status: Acute (4) Hypoxia Status: Acute (5) Severe sepsis Status: Acute Assessment Problems Medical Problems: (1) Alcohol intoxication Status: Acute (2) Community acquired pneumonia Status: Acute (3) COPD with acute exacerbation Status: Acute (4) Hypoxia Status: Acute (5) Severe sepsis Status: Acute 1. Chest pain, atypical - [place] ruled out. MPI this am 2. COPD exacerbation - per PCP 3. hypertension - controlled 4. diabetes mellitus - per pcp Problems: Subjective no chest pain, breathing easy, no lightheadedness or palpitations. Objective Vital Signs Date Time Temp Pulse Resp B/P (MAP) Pulse Ox O2 Delivery O2 Flow Rate FiO2 08/30/17 08:30 Room Air 08/30/17 05:52 98.1 112 20 120/68 (85) 92 08/30/17 05:20 1.0 Heart: Regular rate, Normal S1, Normal S2 General: Alert, Oriented X3, Cooperative Lungs: Other (decreased bases) Neuro: Normal speech, Strength at 5/5 X4 ext Psych/Mental Status: Mental status NL, Mood NL Review of Relevant I have reviewed the following items suzanne (where applicable) has been applied. Labs Laboratory Tests Test 08/28/17 16:54 08/28/17 21:25 08/29/17 05:30 08/29/17 07:49 Glucose (Fingerstick) 357 mg/dL (70-99) 195 mg/dL (70-99) 104 mg/dL (70-99) White Blood Count 22.1 x10^3/uL (4.0-11.0) Red Blood Count 4.60 x10^6/uL (3.50-5.40) Hemoglobin 14.2 g/dL (12.0-15.5) Hematocrit 42.9 % (36.0-47.0) Mean Corpuscular Volume 93 fL (79-100) Mean Corpuscular Hemoglobin 31 pg (25-35) Mean Corpuscular Hemoglobin Concent 33 g/dL (31-37) Red Cell Distribution Width 15.0 % (11.5-14.5) Platelet Count 241 x10^3/uL (140-400) Sodium Level 142 mmol/L (136-145) Potassium Level 3.5 mmol/L (3.5-5.1) Chloride Level 103 mmol/L (98-107) Carbon Dioxide Level 32 mmol/L (21-32) Anion Gap 7 (6-14) Blood Urea Nitrogen 14 mg/dL (7-20) Creatinine 0.7 mg/dL (0.6-1.0) Estimated GFR (Cockcroft-Gault) 85.4 BUN/Creatinine Ratio 20 (6-20) Glucose Level 125 mg/dL (70-99) Hemoglobin A1c 5.9 % (4.8-5.6) Calcium Level 8.8 mg/dL (8.5-10.1) Total Bilirubin 0.2 mg/dL (0.2-1.0) Aspartate Amino Transf (AST/SGOT) 10 U/L (15-37) Alanine Aminotransferase (ALT/SGPT) 16 U/L (14-59) Alkaline Phosphatase 90 U/L (46-116) Total Protein 5.9 g/dL (6.4-8.2) Albumin 3.0 g/dL (3.4-5.0) Albumin/Globulin Ratio 1.0 (1.0-1.7) Thyroid Stimulating Hormone (TSH) 1.189 uIU/mL (0.358-3.740) Test 08/29/17 11:33 08/29/17 13:26 08/29/17 16:34 08/29/17 20:05 Glucose (Fingerstick) 227 mg/dL (70-99) 270 mg/dL (70-99) 207 mg/dL (70-99) Lactic Acid Level 3.2 mmol/L (0.4-2.0) Test 08/30/17 06:13 08/30/17 07:44 White Blood Count 13.6 x10^3/uL (4.0-11.0) Red Blood Count 4.72 x10^6/uL (3.50-5.40) Hemoglobin 14.7 g/dL (12.0-15.5) Hematocrit 44.3 % (36.0-47.0) Mean Corpuscular Volume 94 fL (79-100) Mean Corpuscular Hemoglobin 31 pg (25-35) Mean Corpuscular Hemoglobin Concent 33 g/dL (31-37) Red Cell Distribution Width 14.8 % (11.5-14.5) Platelet Count 275 x10^3/uL (140-400) Sodium Level 141 mmol/L (136-145) Potassium Level 3.4 mmol/L (3.5-5.1) Chloride Level 102 mmol/L (98-107) Carbon Dioxide Level 35 mmol/L (21-32) Anion Gap 4 (6-14) Blood Urea Nitrogen 12 mg/dL (7-20) Creatinine 0.7 mg/dL (0.6-1.0) Estimated GFR (Cockcroft-Gault) 85.4 Glucose Level 120 mg/dL (70-99) Lactic Acid Level 2.2 mmol/L (0.4-2.0) Calcium Level 8.9 mg/dL (8.5-10.1) Glucose (Fingerstick) 113 mg/dL (70-99) Microbiology 08/26/17 Blood Culture - Preliminary, Resulted NO GROWTH AFTER 3 DAYS 08/26/17 Urine Culture - Final, Complete 08/26/17 Urine Culture Result 1 (SUZANNE) - Final, Complete Medications Current Medications Methylprednisolone Sodium Succinate (SOLU-Medrol 125MG VIAL) 125 mg 1X ONCE IV Last administered on 08/26/17 14:30; Start 08/26/17 at 14:30; Stop at 14:31; Status DC Albuterol/ Ipratropium (Duoneb) 6 ml 1X ONCE NEB Last administered on 14:44; Start 08/26/17 at 14:45; Stop 08/26/17 at 14:46; Status DC Sodium Chloride 1,000 ml @ 810 mls/hr Q1H15M IV Last administered on 18:06; Start 08/26/17 at 15:15; Stop 08/26/17 at 18:15; Status DC Levofloxacin/ Dextrose (Levaquin Per Pharmacy) 1 each PRN DAILY PRN MC SEE COMMENTS; Start 08/26/17 at 15:15 Levofloxacin/ Dextrose 150 ml @ 150 mls/hr 1X ONCE IV Last administered on 15:39; Start 08/26/17 at 15:30; Stop 08/26/17 at 16:29; Status DC Ondansetron HCl (Zofran) 4 mg PRN Q4HRS PRN IV NAUSEA/VOMITING; Start at 16:00; Stop 08/27/17 at 15:59; Status DC Sodium Chloride 1,000 ml @ 125 mls/hr Q8H IV Last administered on 08/27/17 03:14; Start 08/26/17 at 16:00; Stop 08/27/17 at 15:59; Status DC Acetaminophen (Tylenol) 650 mg PRN Q4HRS PRN PO FEVER; Start 08/26/17 at 16:00 ; Stop 08/27/17 at 15:59; Status DC Methylprednisolone Sodium Succinate (SOLU-Medrol 40MG VIAL) 60 mg Q6HRS IV Last administered on 08/28/17 12:02; Start 08/26/17 at 18:00; Stop 08/28/17 at 13:25; Status DC Albuterol/ Ipratropium (Duoneb) 3 ml RTQID NEB ; Start 08/26/17 at 16:00; Stop 08/26/17 at 16:11; Status DC Albuterol/ Ipratropium (Duoneb) 3 ml RTQID NEB ; Start 08/26/17 at 20:00; Stop 08/26/17 at 20:00; Status DC Albuterol/ Ipratropium (Duoneb) 3 ml RTQID NEB Last administered on 08/30/17 05:20; Start 08/26/17 at 20:00 Levofloxacin/ Dextrose 150 ml @ 150 mls/hr Q24H IV Last administered on 15:23; Start 08/27/17 at 15:30 Albuterol Sulfate (Ventolin) 2.5 mg PRN Q2HR PRN NEB SHORTNESS OF BREATH; Start 08/26/17 at 17:00 Multivitamins/ Minerals 10 ml/ Thiamine HCl 100 mg/Folic Acid 1 mg/Sodium Chloride 1,011.2 ml @ 100 mls/ hr DAILY IV Last administered on 08/27/17 09: 17; Start 08/27/17 at 09:00; Stop 08/27/17 at 18:42; Status DC Lorazepam (Ativan) 2 mg PRN Q1HR PRN IV For CIWA 8-14; Start 08/26/17 at 17:00 Clonidine HCl (Catapres) 0.1 mg PRN Q1HR PRN PO SBP>180 OR DBP>100, MR X 3 Last administered on 08/27/17 17:10; Start 08/26/17 at 17:00 Lactobacillus Acidophilus (Bacid, Jody-Bid) 1 tab BID PO Last administered on 08/29/17 20:42; Start 08/26/17 at 21:00 Potassium Chloride (Klor-Con) 40 meq 1X ONCE PO Last administered on 18:09; Start 08/26/17 at 17:30; Stop 08/26/17 at 17:31; Status DC Nicotine (Nicoderm Cq 21mg) 1 patch DAILY TD Last administered on 08/29/17 08 :35; Start 08/26/17 at 20:00 Influenza Virus Vaccine Quadrival (Fluarix Quad [id number] Syringe) 0.5 ml ONCE ONCE VAX IM Last administered on 08/28/17 09:20; Start 08/28/17 at 09:00; Stop 08/28/17 at 09:01; Status DC Bupropion HCl (Wellbutrin Xl) 150 mg DAILY PO Last administered on 08/29/17 08:35; Start 08/27/17 at 09:00 Docusate Sodium (Colace) 100 mg BID PO Last administered on 08/29/17 20:42; Start 08/27/17 at 09:00 Trazodone HCl (Desyrel) 200 mg HS PO Last administered on 08/29/17 20:41; Start 08/27/17 at 21:00 Oxybutynin Chloride (Ditropan) 5 mg DAILY PO Last administered on 08/29/17 08 :28; Start 08/27/17 at 09:00 Prazosin HCl (Minipress) 2 mg QHS PO Last administered on 08/29/17 20:41; Start 08/27/17 at 21:00 Sodium Bicarbonate 150 meq/Sterile Water 1,150 ml @ 75 mls/hr [id number] IV Last administered on 08/29/17 03:17; Start 08/27/17 at 19:00; Stop 08/29/17 at 17 :06; Status DC Amlodipine Besylate (Norvasc) 10 mg DAILY PO Last administered on 08/29/17 08 :33; Start 08/27/17 at 18:45 Methylprednisolone Sodium Succinate (SOLU-Medrol 40MG VIAL) 60 mg Q12H IV ; Start 08/29/17 at 00:00; Stop 08/29/17 at 00:00; Status DC Insulin Aspart (NovoLOG) 0-7 UNITS TIDAC SQ Last administered on 08/29/17 17: 04; Start 08/28/17 at 16:30 Dextrose 12.5 gm PRN Q15MIN PRN IV SEE COMMENTS; Start 08/28/17 at 13:30 Methylprednisolone Sodium Succinate (SOLU-Medrol 40MG VIAL) 60 mg Q12H IV Last administered on 08/29/17 08:27; Start 08/29/17 at 09:00; Stop 08/29/17 at 14 :14; Status DC Prednisone (Prednisone) 40 mg DAILY PO ; Start 08/30/17 at 09:00 Regadenoson (Lexiscan) 0.4 mg 1X ONCE IV ; Start 08/30/17 at 09:45; Stop at 09:46; Status DC Active Scripts Active Barnes 5-325 Tablet (Hydrocodone Bit/Acetaminophen) 1 Each Tablet 1 Tab PO PRN Q6HRS PRN Reported Metformin Hcl 500 Mg Tablet 1 Tab PO DAILY Hydrocodone-Apap 5-325 (Hydrocodone Bit/Acetaminophen) 1 Each Tablet 1 Tab PO PRN Q6HRS PRN Prazosin Hcl 2 Mg Capsule 1 Cap PO HS Dok (Docusate Sodium) 100 Mg Capsule 1 Cap PO BID Oxybutynin Chloride Er (Oxybutynin Chloride) 5 Mg Tab.er.24 5 Mg PO DAILY Bupropion Xl (Bupropion Hcl) 150 Mg Tab.er.24h 1 Tab PO DAILY Trazodone Hcl 100 Mg Tablet 200 Mg PO HS Vitals/I & O Vital Sign - Last 24 Hours 08/29/17 08/29/17 08/29/17 08/29/17 11:03 15:10 15:54 19:30 Temp 97.9 98.0 Pulse 102 108 Resp 24 24 B/P (MAP) 118/59 (78) 126/64 (84) Pulse Ox 94 96 94 O2 Delivery Nasal Cannula Nasal Cannula Room Air Nasal Cannula O2 Flow Rate 2.0 2.0 1.0 08/29/17 08/29/17 08/29/1717 19:30 20:41 21:10 23:03 Temp 98.7 98.1 Pulse 98 98 93 Resp 18 20 B/P (MAP) 142/96 (111) 142/96 108/62 (77) Pulse Ox 95 97 96 O2 Delivery Nasal Cannula Nasal Cannula Nasal Cannula O2 Flow Rate 2.0 1.0 1.0 08/30/17 08/30/17 08/30/17 05:20 05:52 08:30 Temp 98.1 Pulse 112 Resp 20 B/P (MAP) 120/68 (85) Pulse Ox 96 92 O2 Delivery Nasal Cannula Room Air Room Air O2 Flow Rate 1.0 TASHA ADKINS APRN Aug 30, 2017 10:47
[2017-08-30] MEDS: LACTOBACILLUS ACIDOPH & BULGAR 1 TABLET. PO SCH (11:58)
[2017-08-30] MEDS: DOCUSATE SODIUM 100 MG CAPSULE PO SCH (11:58)
[2017-08-30] MEDS: OXYBUTYNIN CHLORIDE 5 MG TABLET PO SCH (11:58)
[2017-08-30] MEDS: buPROPion XL 150 MG TAB.ER.24H PO SCH (11:59)
[2017-08-30] MEDS: NICOTINE 21MG PATCH. TD SCH (11:59)
[2017-08-30] MEDS: amLODIPine BESYLATE 10 MG TABLET PO SCH (11:59)
[2017-08-30] MEDS ORDERED: POTASSIUM CHLORIDE 20 MEQ TABLET.ER. PO ONE (14:00)
[2017-08-30] MEDS ORDERED: DOXY100T PO (14:00)
[2017-08-30] MEDS ORDERED: AMLO10TA2 PO (14:00)
[2017-08-30] MEDS ORDERED: PRED-220 PO (14:00)
--- NOTE | 2017-08-30 14:02 | RAD ---
APPROVED REPORT Test Type: Pharmacological Stress Nurse/Tech: RT Elkin (R) (N) Test Indications: Chest pain Cardiac History: No known cardiac Medications: See EHR Resting Heart Rate: 88 bpm Resting Blood Pressure: 140/74mmHg Pretest Chest Pain: None Pharm. Details Pharmacologic stress testing was performed using 0.4mg per 5ml of regadenoson given intravenously ove r 7-10 seconds. Stress Symptoms Dyspnea, chest pressure POST EXERCISE Reason for Termination: Infusion complete Max HR: 133 bpm Max Blood Pressure: 138/68mmHg Blood Pressure response to exercise: Normal blood pressure response during stress. Chest Pain: No. Arrhythmia: No. ST Change: No. INTERPRETATION Stress EKG Conclusion: No evidence of vasodilator induced EKG changes. Imaging Protocol IMAGE PROTOCOL: Stress Tc-99m/rest Tc-99m 2 days Rest: Stress: Viability: Radiopharm.Tc99m Sestamibi [id number] Duration 20min. Img Date 08/30/2017 Inj-Img [id number]. Stress Admin Site: IV - Left AntecubitalAdministrator: RT Elkin (R)(N) STRESS DATA End Diast. Vol.94.0mlAv. Heart Mexv030.0bpm LVEDV index BSA2.0mlCardiac Output0.1L/min End Syst. Vol.24.0mlCO Index BSA7.4L/min LVESV index BSA0.0mlMyocardial Hypq522.0g Eject. Yhbbsdyi65.0% Stress Rates Pk. Fill Rate4.08EDV/secLVtime Pk. Fill 147.69msec Pk. Empty Rate4.87ESV/secLVtime Pk. Drgkq751.24msec 11/03 Pk. Fill1.43EDV/sec Stress Scores Regional WT3.00Summed WT13.00 Regional WM0.00Summed WM0.00 LV Perfusion The stress only images show normal perfusion, contraction and thickening. Wall Motion Normal wall motion. EF > 70% LV Perf. Quant 17 Seg. SSS1.00 Stress Defect Extent (% LAD)0.00Rest Defect Extent (% LAD)Rev. Defect Extent (% LAD)0.00 Stress Defect Extent (% LCX) 0.00Rest Defect Extent (% LCX)Rev. Defect Extent (% LCX)0.00 Stress Defect Extent (% RCA)0.00Rest Defect Extent (% RCA)Rev. Defect Extent (% RCA)0.00 Stress Defect Extent (% HANNAH)0.00Rest Defect Extent (% HANNAH)Rev. Defect Extent (% HANNAH)0.00 Other Information Quality:Fair Risk Assessment: Low Risk Conclusion 1. No evidence of vasodilator induced EKG changes. 2. Normal perfusion at stress. 3. Motion artifact noted 4. Normal EF at > 70% 5. Low risk study
[2017-08-30 15:19] VITALS: BP 136/80
[2017-08-30] MEDS ORDERED: DOXYCYCLINE HYCLATE 100 MG TABLET PO SCH (21:00)
--- NOTE | 2017-08-31 02:13 | PN ---
DATE: 08/30/2017 PROBLEMS: 1. Acute hypoxic respiratory failure. 2. Acute exacerbation of chronic obstructive pulmonary disease. 3. High anion gap lactic acidosis type B. 4. Type 2 diabetes, good control. 5. Hypertension, started on amlodipine. 6. Osteoarthritis. 7. Chronic back pain. 8. Bipolar disorder. 9. Overactive bladder. 10. Chest pain, myocardial infarction ruled out. 11. Tobacco use disorder. 12. Alcohol intoxication on admission. SUBJECTIVE: This 62-year-old is doing much better today. She had a Lexiscan test and echocardiogram, which are pending and will probably be discharged today. She is feeling much better. She states she is planning on quitting smoking and will most likely go home without oxygen. OBJECTIVE: VITAL SIGNS: Blood pressure 120/68, pulse 112 sat is 94% on room air, temperature 98.1. GENERAL: Sitting comfortably. No evidence of respiratory distress. HEENT: Color is good. Throat is clear. She is edentulous. NECK: Supple. LUNGS: Clear. No wheezes. CARDIOVASCULAR: Regular rhythm and rate, mildly tachycardic. ABDOMEN: Soft, nontender. EXTREMITIES: Without edema. LABORATORY DATA: Glucose is much improved. Last lactic acid this morning was 2.2, continues to trend downward. Potassium 3.4. CBC, she has some mild leukocytosis from steroids. The urine culture was negative. PLAN: Hopefully, discharge home after results of tests and discharge instructions given for medications, see MRAD. ARASELI SPENCER DO DR: JULIAN/reshma JOB#: [id number] / [id number]
--- NOTE | 2017-08-31 20:15 | DS ---
DATE OF DISCHARGE: 08/30/2017 DISCHARGE DIAGNOSES: 1. Acute hypoxic respiratory failure. 2. Acute exacerbation of chronic obstructive pulmonary disease. 3. High anion gap lactic acidosis, type B. 4. Type 2 diabetes, good control. 5. Hypertension. 6. Osteoarthritis. 7. Chronic back pain. 8. Bipolar disorder. 9. Overactive bladder. 10. Chest pain, myocardial infarction ruled out. 11. Tobacco use disorder. 12. Alcohol intoxication on admission. HOSPITAL COURSE: This is a 62-year-old female who was intoxicated on admission and complained of chest pain and shortness of breath. She did have an exacerbation of COPD and was treated with steroids and breathing treatments. She had high lactic acidosis and her metformin was discontinued as this was most likely the source. She had a Lexiscan, which was normal and her SD was ruled out. DISCHARGE DIAGNOSIS: Tobacco use disorder. She also had a full progress note prior to discharge. Discharge vital signs, blood pressure 136/80, pulse 104, respirations 20, pulse ox is 96% on 1 liter. PLAN: She will be discharged home. Please see discharge instructions. ARASELI SPENCER DO DR: JULIAN/reshma JOB#: [id number] / [id number]
== END 2017-08-30 16:09 | disposition home or self-care (01) | DRG 871 ==
LOC: ER 13:53 → ICU 15:14 → 1 SOUTH 08-29 16:58
PROVIDERS: ADMIT Internal Medicine; ATTEND Internal Medicine
DX: A41.9 Sepsis, unspecified organism (principal); J96.01 Acute respiratory failure with hypoxia; J18.9 Pneumonia, unspecified organism; J44.0 Chronic obstructive pulmonary disease with (acute) lower respiratory infection; J44.1 Chronic obstructive pulmonary disease with (acute) exacerbation; R65.20 Severe sepsis without septic shock; E11.9 Type 2 diabetes mellitus without complications; E87.6 Hypokalemia; F10.129 Alcohol abuse with intoxication, unspecified; J20.9 Acute bronchitis, unspecified; M54.9 Dorsalgia, unspecified; F17.210 Nicotine dependence, cigarettes, uncomplicated; F31.9 Bipolar disorder, unspecified; G89.29 Other chronic pain; R07.89 Other chest pain; I10 Essential (primary) hypertension; M15.9 Polyosteoarthritis, unspecified; N32.81 Overactive bladder; Z90.710 Acquired absence of both cervix and uterus; Z90.49 Acquired absence of other specified parts of digestive tract; Z98.42 Cataract extraction status, left eye; Z98.41 Cataract extraction status, right eye; Z88.8 Allergy status to other drugs, medicaments and biological substances; Z82.49 Family history of ischemic heart disease and other diseases of the circulatory system
CPT/HCPCS: 36415; 71010; 78452; 80047; 80048; 80053; 81001; 82947; 83036; 83605; 83615; 83735; 84443; 84484; 85007; 85025; 85027; 87040; 87086; 87641; 90686; 93005; 93017; 94250; 94640; 96365; 96374; 96375; 99406; A9500; G0480; J1815; J1956; J2785; J2920; J2930; J7512; J7620; 97110; 97530; 99285-25; J7030

== ENCOUNTER 2018-02-07 00:12 | Inpatient (IN) | payer MEDICAID, MEDICARE ==
[~2018-02-07] VITALS: Ht 152.4 cm; Wt 90.3 kg
[~2018-02-07 00:12] MED LIST changes: +AMLO10TA2 PO; +BUPR-192 PO; +CETI10TA16 PO; +DOCU-153 PO; +DOXY100T PO; +HYDR-2758 PO; +METF500T4 PO; +OXYB5TAB PO; +PRAZ2CAP2 PO; +PRED-220 PO; +TRAZ-90 PO
[2018-02-07] MEDS ORDERED: IPRATRPIUM/ALBUTEROL 0.5/2.5MG 3 ML NEBU. NEB ONE ×3 (00:30)
[2018-02-07] MEDS ORDERED: methylPREDNISolone SOD SUCC PF 125 MG/2 ML VIAL. IV ONE (00:30)
[2018-02-07 00:57] LABS: BASO % 0 % (0-3); EOS # 0.1 x10^3/uL (0.0-0.7); EOS % 1 % (0-3); HEMATOCRIT 43.1 % (36.0-47.0); HEMOGLOBIN 14.6 g/dL (12.0-15.5); LYMPH % 15 % (24-48); MEAN CORPUSCULAR HEMOGLOBIN 32 pg (25-35); MEAN CORPUSCULAR HGB CONC 34 g/dL (31-37); MEAN CORPUSCULAR VOLUME 94 fL (79-100); MONO # 0.9 x10^3/uL (0.0-1.1); MONO % 7 % (0-9); NEUT # 10.2 x10^3uL (1.8-7.7); NEUT % 77 % (31-73); PLATELET COUNT 285 x10^3/uL (140-400); RED CELL DISTRIBUTION WIDTH 14.4 % (11.5-14.5); WHITE BLOOD COUNT 13.2 x10^3/uL (4.0-11.0)
[2018-02-07 01:17] LABS: ALBUMIN 3.1 g/dL (3.4-5.0); ALBUMIN/GLOBULIN RATIO 0.8 (1.0-1.7); CALCIUM 8.9 mg/dL (8.5-10.1); CREATININE 0.7 mg/dL (0.6-1.0); GFR 85.4; POTASSIUM 3.3 mmol/L (3.5-5.1); TOTAL BILIRUBIN 0.2 mg/dL (0.2-1.0); TOTAL PROTEIN 6.9 g/dL (6.4-8.2)
[2018-02-07 01:19] LABS: % BANDS 4 % (0-9); % EOS 1 % (0-5); % LYMPHS 20 % (24-48); % MONOS 7 % (0-10); % SEGS 68 % (35-66); PLT ESTIMATE ADEQUATE (ADEQUATE)
--- NOTE | 2018-02-07 02:16 | PHYS DOC ---
Past History Past Medical History: Arthritis, COPD, Hypertension Past Surgical History: Hysterectomy, Other Additional Smoking Information: States is going to quit tonight Alcohol Use: None Drug Use: None Adult General Chief Complaint Chief Complaint: SHORTNESS OF BREATH HPI HPI Patient is a 62-year-old female who has a history significant for COPD, hypertension, arthritis who reports she does not utilize home oxygen who presents to the ER today secondary to shortness of breath that started earlier this evening. Patient reports that she became tachypneic, wheezing, short of breath. Patient reports that she's had a creamy productive cough which is unchanged from her. Patient reports this is her baseline sputum production without any increased production but she reports it might be slightly more thicker and darker than usual. Patient denies any fevers shakes chills. Patient has any abdominal pain dysuria frequency urgency. Patient denies any chest pain other than when she is coughing. Patient has any pain rating her back arms or jaw. Patient son lives with her and reports that while he was watching TV he noticed that she was coughing and heard her wheezing and so EMS was dispatched. Upon arrival by EMS the patient was pulse oxing at approximately 88-90% while receiving a nebulized treatment. Patient has been able to speak in full sentences but appears to be clearly tachypneic. Review of systems: Constitutional: Denies fever or chills Eyes: Denies change in visual acuity, redness, or eye pain HENT: Denies nasal congestion or sore throat All other review systems are negative except as documented in the history of present illness portion. Physical exam: Constitutional: Well developed, well nourished, no acute distress, non-toxic appearance. HENT: Normocephalic, atraumatic, bilateral external ears normal, nose normal. Eyes: EOMI, conjunctiva normal, no discharge. Neck: Normal range of motion, no tenderness, supple, no stridor. Cardiovascular:Heart rate regular rhythm Lungs & Thorax: Bilateral breath sounds diffuse inspiratory and expiratory wheezing with tachypnea and difficulty speaking in full sentences upon arrival. After patient's third neb patient is speaking in full sentences and appears much more comfortable. Abdomen: Bowel sounds normal, soft, no tenderness, no masses, no pulsatile masses. Skin: Warm, dry, no erythema, no rash. Back: No tenderness, no CVA tenderness. Extremities: No tenderness, no cyanosis, no clubbing, ROM intact, no edema. Neurologic: Alert and oriented X 3, normal motor function, normal sensory function, no focal deficits noted. Psychologic: Affect normal, judgement normal, mood normal. Chest x-ray: Normal heart no infiltrates or effusions EKG reveals sinus tach with a right bundle branch block nonspecific ST-T wave abnormalities no STEMI. CBC CMP troponin and BNP all within normal limits ER hospital course was significant for albuterol/Atrovent nebs 3 with IV Solu- Medrol. Assessment and plan 62-year-old female with history significant for COPD who presents here today with a COPD exacerbation without evidence of infection. Patient's clinically hemodynamically stable at this time. Patient has received IV steroids as well as multiple DuoNeb's with significant improvement. Patient will be admitted for further observation and aggressive neb treatments. Patient is still hypoxic with a pulse ox of 92% on 2 L of nasal cannula. Patient reports that she has never been on home oxygen although she feels that she likely needs it. I have discussed the case with who is agreed to assist us with further inpatient care of this patient. I do not feel that the patient currently has pneumonia and we will defer antibiotics at this time. Patient does not present with any signs or symptoms consistent with sepsis. My Critical Care: Critical Care Time: 35 minutes Treatments/Evaluations: Close monitoring and treatment of unstable vital signs, cardiorespiratory, and neurologic status, while maintaining tight balance of fluid, respiratory, and cardiac interventions. Current Medications Current Medications Current Medications Medications (Trade) Dose Ordered Sig/Nicolás Start Time Stop Time Status Last Admin Dose Admin Albuterol/ Ipratropium (Duoneb) 3 ml 1X ONCE 02/07/18 00:30 02/07/18 00:59 DC 02/07/18 00:57 3 ML Methylprednisolone Sodium Succinate (SOLU-Medrol 125MG VIAL) 125 mg 1X ONCE 02/07/18 00:30 02/07/18 00:59 DC 02/07/18 01:17 125 MG Allergies Allergies Allergies Coded Allergies Type Severity Reaction Last Updated Verified sulfamethoxazole Allergy Intermediate 08/28/17 Yes trimethoprim Allergy Intermediate 08/28/17 Yes I S O L A T I O N *CONTACT* Allergy Unknown 08/30/17 Yes Current Patient Data Vital Signs Vital Signs Date Time Temp Pulse Resp B/P (MAP) Pulse Ox O2 Delivery O2 Flow Rate FiO2 02/07/18 01:45 112 24 110/56 (74) 89 Nasal Cannula 2.0 02/07/18 00:19 98.2 Lab Results Laboratory Tests Test 02/07/18 00:32 White Blood Count 13.2 x10^3/uL (4.0-11.0) H Red Blood Count 4.60 x10^6/uL (3.50-5.40) Hemoglobin 14.6 g/dL (12.0-15.5) Hematocrit 43.1 % (36.0-47.0) Mean Corpuscular Volume 94 fL (79-100) Mean Corpuscular Hemoglobin 32 pg (25-35) Mean Corpuscular Hemoglobin Concent 34 g/dL (31-37) Red Cell Distribution Width 14.4 % (11.5-14.5) Platelet Count 285 x10^3/uL (140-400) Neutrophils (%) (Auto) 77 % (31-73) H Lymphocytes (%) (Auto) 15 % (24-48) L Monocytes (%) (Auto) 7 % (0-9) Eosinophils (%) (Auto) 1 % (0-3) Basophils (%) (Auto) 0 % (0-3) Neutrophils # (Auto) 10.2 x10^3uL (1.8-7.7) H Lymphocytes # (Auto) 2.0 x10^3/uL (1.0-4.8) Monocytes # (Auto) 0.9 x10^3/uL (0.0-1.1) Eosinophils # (Auto) 0.1 x10^3/uL (0.0-0.7) Basophils # (Auto) 0.0 x10^3/uL (0.0-0.2) Segmented Neutrophils % 68 % (35-66) H Band Neutrophils % 4 % (0-9) Lymphocytes % 20 % (24-48) L Monocytes % 7 % (0-10) Eosinophils % 1 % (0-5) Platelet Estimate Adequate (ADEQUATE) Sodium Level 142 mmol/L (136-145) Potassium Level 3.3 mmol/L (3.5-5.1) L Chloride Level 102 mmol/L (98-107) Carbon Dioxide Level 23 mmol/L (21-32) Anion Gap 17 (6-14) H Blood Urea Nitrogen 6 mg/dL (7-20) L Creatinine 0.7 mg/dL (0.6-1.0) Estimated GFR (Cockcroft-Gault) 85.4 BUN/Creatinine Ratio 9 (6-20) Glucose Level 185 mg/dL (70-99) H Calcium Level 8.9 mg/dL (8.5-10.1) Total Bilirubin 0.2 mg/dL (0.2-1.0) Aspartate Amino Transferase (AST) 39 U/L (15-37) H Alanine Aminotransferase (ALT) 51 U/L (14-59) Alkaline Phosphatase 103 U/L (46-116) Troponin I Quantitative < 0.017 ng/mL (0-0.055) KB-Kxo-M-Type Natriuretic Peptide 79 pg/mL (0-124) Total Protein 6.9 g/dL (6.4-8.2) Albumin 3.1 g/dL (3.4-5.0) L Albumin/Globulin Ratio 0.8 (1.0-1.7) L EKG EKG [] Radiology/Procedures Radiology/Procedures [] Course & Med Decision Making Course & Med Decision Making Pertinent Labs and Imaging studies reviewed. (See chart for details) [] Dragon Disclaimer Dragon Disclaimer This electronic medical record was generated, in whole or in part, using a voice recognition dictation system. Departure Departure: Impression: Primary Impression: COPD with acute exacerbation Disposition: ADMITTED INPATIENT Admitting Physician: Massimo Spears Condition: IMPROVED Referrals: PCP,NO (PCP) MIKAELA MASSEY MD Feb 07, 2018 02:16
--- NOTE | 2018-02-07 05:34 | EKG ---
[address] [address] Test Date: 2018-02-07 Test Time: 00:39:41 Pat Name: RIMA CHIU Department: Room: 119 A Gender: F Division Chief: CLIFFORD : 1955 Requested By: MIKAELA MASSEY Order Number: [id number] Reading MD: Jose Rick MD Measurements Intervals [place] Rate: 106 P: 95 WI: 190 QRS: 100 QRSD: 134 T: 35 QT: 360 QTc: 480 Interpretive Statements SINUS TACHYCARDIA RBBB Electronically Signed On 02-08-2018 13:44:33 CDT by Jose Rick MD
[2018-02-07 05:40] VITALS: BP 108/57
--- NOTE | 2018-02-07 07:32 | RAD ---
Portable chest, 02/07/2018: History: Shortness of breath Comparison is made to a study from 08/26/2017. The heart size is normal. There is calcific plaquing of the aorta. The pulmonary vascularity is within normal limits. No pulmonary infiltrate is seen. There is no evidence of pleural fluid. IMPRESSION: No acute cardiopulmonary abnormality is detected.
[2018-02-07 10:37] VITALS: BP 153/79
[2018-02-07] MEDS ORDERED: ALBU2.5V5 (11:02)
[2018-02-07] MEDS ORDERED: OXYB5TAB7 (11:02)
[2018-02-07 14:55] VITALS: BP 145/74
[2018-02-07] MEDS ORDERED: IPRATRPIUM/ALBUTEROL 0.5/2.5MG 3 ML NEBU. ONE (15:12)
[2018-02-07] MEDS ORDERED: ALBUTEROL SULFATE 2.5 MG/3 ML NEBU. NEB PRN ×2 (15:45)
[2018-02-07] MEDS ORDERED: DEXTROSE 50% 25 GM / 50ML DISP.SYRIN. IV PRN (15:45)
[2018-02-07] MEDS ORDERED: HYDROcodone/APAP 5/325MG 1 TAB TABLET PO PRN ×2 (15:45)
[2018-02-07] MEDS: IPRATRPIUM/ALBUTEROL 0.5/2.5MG 3 ML NEBU. NEB SCH (16:00)
--- NOTE | 2018-02-07 16:45 | HP ---
ADMIT DATE: 02/07/2018 HISTORY OF PRESENT ILLNESS: The patient is a 62-year-old female patient who basically came to the Emergency Room complaining of increasing shortness of breath that started yesterday. Yesterday evening, she became tachypneic, wheezing, short of breath. She reports she had a creamy productive cough. She is unchanged from her usual. She reports that she is at her baseline, has cough with sputum that is now thicker and darker than it used to be. The patient denied any chills, rigors, or fever. She denied any other symptoms. She was evaluated in the Emergency Room and she was found to have mild leukocytosis and her chest x-ray showed no pulmonary infiltrates and the patient was admitted for COPD exacerbation. She was started on prednisone as well as bronchodilator and admitted for inpatient treatment. PAST MEDICAL HISTORY: Significant for type 2 diabetes mellitus for which she is on metformin, hypertension, osteoarthritis, chronic back pain. She also has COPD, overactive bladder, and bipolar disorder. PAST SURGICAL HISTORY: Significant for total abdominal hysterectomy without oophorectomy, bilateral cataract extraction, cholecystectomy, and colonoscopy. ALLERGIES: She is allergic to BACTRIM. MEDICATIONS: She is currently on following medications: She is on albuterol sulfate 2.5 mg in 3 mL via nebulizer every 4 hours. She is on prazosin 2 mg capsule at bedtime, hydrocodone/APAP 5/325 one tablet every 6 hours, Wellbutrin 150 mg daily, trazodone 200 mg at bedtime, docusate sodium 100 mg twice a day, prednisone 10 mg once a day, oxybutynin chloride 5 mg tablet once a day. FAMILY HISTORY: She has 3 brothers and 1 sister, all older. Her father at the age of 44 because of myocardial infarction. Her mother is still alive at the age of 84, currently resides in a [facility], and has dementia and bipolar disorder. SOCIAL HISTORY: She is and has 2 daughters and 1 son. She is a current smoker and has been smoking since the age of [age] years old. She smokes about half a pack a day. She drinks alcohol occasionally. She does not use any drugs. She is on disability for her chronic back pain and bilateral knee pain. She uses a walker at home and currently lives with her son. REVIEW OF SYSTEMS: The patient denied any blurring of vision. She has bilateral cataract extractions and according to her, she has also laser photocoagulation. 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 Did complain of stuffy nose, but denied any nosebleed or postnasal drip. Denied any sore throat, sore tongue, toothache, hoarseness of voice, or difficulty swallowing. Denied any nausea, vomiting, diarrhea, or constipation. Denied any hematemesis, melena, or hematochezia. Denied any dysuria, frequency, or hematuria. Denied any chills, rigors, or fever. Did complain of shortness of breath, cough with weiss sputum. PHYSICAL EXAMINATION: GENERAL: On arrival to the Emergency Room, she was tachypneic and tachycardic. VITAL SIGNS: Her heart rate was 107, blood pressure was 113/41, temperature was 98.2, respiratory rate 20, and oxygen saturation was 88% on 2 liters of oxygen. HEAD, EYES, EARS, NOSE, AND THROAT: Showed normocephalic, atraumatic. NECK: Supple. HEART: Showed normal first and second heart sounds with no gallop, rub, or murmur. CHEST: Showed bilateral breath sounds, diffuse inspiratory and expiratory wheezing with tachypnea and difficulty finishing a sentence. By the time she received her third nebulizer treatment, apparently she was able to speak in full sentences and appeared to be much more comfortable. ABDOMEN: Distended, soft, nontender. No guarding or rigidity. No organomegaly. Hernial orifice intact. Bowel sounds normal. NEUROLOGIC: She is awake, alert, responding appropriately. All cranial nerves intact. She moves extremities without difficulty. LABORATORY DATA: While in the Emergency Room, she had lab work done, which showed a white cell count of 13,200, hemoglobin 15, hematocrit 43, MCV 94, and platelet count 285,000. Her chemistry showed a serum sodium 142, potassium 3.3, chloride 102, bicarbonate 23, anion gap of 17, BUN 6, creatinine 0.7. Estimated GFR was 85 mL per minute. Her glucose was 185, calcium was 8.9. Total bilirubin, AST, ALT, alkaline phosphatase were normal. Total protein 6.9, albumin 3.1. Her chest x-ray showed that the heart size is normal. There is calcific plaquing of the aorta. The pulmonary vascularity is within normal limits. No pulmonary infiltrates are seen. There is no evidence of pleural fluid. ASSESSMENT AND PLAN: The patient was basically admitted with acute chronic obstructive pulmonary disease exacerbation. I will continue with nebulizer treatment. Continue with Solu-Medrol and oxygen supplementation as needed. EDOUARD HERRERA MD DR: FELA/reshma JOB#: [id number] / [id number]
[2018-02-07] MEDS: methylPREDNISolone SOD SUCC PF 40 MG/ML VIAL. IV SCH (17:24)
[2018-02-07] MEDS: INSULIN ASPART 300 UNITS/3 ML INSULN.PEN SQ SCH (17:27)
[2018-02-07 18:31] VITALS: BP 136/75
[2018-02-07] MEDS: PRAZOSIN 1 MG CAPSULE. PO SCH (21:28)
[2018-02-07] MEDS: DOCUSATE SODIUM 100 MG CAPSULE PO SCH (21:28)
[2018-02-07] MEDS: traZODone 100 MG TABLET. PO SCH (21:28)
[2018-02-07] MEDS ORDERED: INSULIN ASPART 300 UNITS/3 ML INSULN.PEN SQ ONE (21:30)
[2018-02-07 22:33] VITALS: BP 151/62
[2018-02-08] MEDS: methylPREDNISolone SOD SUCC PF 40 MG/ML VIAL. IV SCH ×2 (04:42→16:29)
[2018-02-08 05:01] VITALS: BP 144/80
[2018-02-08] MEDS: IPRATRPIUM/ALBUTEROL 0.5/2.5MG 3 ML NEBU. NEB SCH ×4 (06:05→21:20)
[2018-02-08 06:13] LABS: ALBUMIN 2.9 g/dL (3.4-5.0); ALBUMIN/GLOBULIN RATIO 0.8 (1.0-1.7); CALCIUM 9.1 mg/dL (8.5-10.1); CREATININE 0.7 mg/dL (0.6-1.0); GFR 85.4; POTASSIUM 4.2 mmol/L (3.5-5.1); TOTAL BILIRUBIN 0.3 mg/dL (0.2-1.0); TOTAL PROTEIN 6.5 g/dL (6.4-8.2)
[2018-02-08 06:18] LABS: HEMATOCRIT 43.1 % (36.0-47.0); HEMOGLOBIN 14.4 g/dL (12.0-15.5); RED BLOOD COUNT 4.57 x10^6/uL (3.50-5.40); RED CELL DISTRIBUTION WIDTH 14.3 % (11.5-14.5)
[2018-02-08] MEDS: DOCUSATE SODIUM 100 MG CAPSULE PO SCH ×2 (08:13→19:53)
[2018-02-08] MEDS: buPROPion XL 150 MG TAB.ER.24H PO SCH (08:14)
[2018-02-08] MEDS: OXYBUTYNIN CHLORIDE 5 MG TABLET PO SCH (08:14)
[2018-02-08] MEDS: INSULIN ASPART 300 UNITS/3 ML INSULN.PEN SQ SCH ×4 (08:20→20:05)
[2018-02-08] MEDS ORDERED: predniSONE 10 MG TABLET PO SCH (09:00)
[2018-02-08] MEDS ORDERED: OXYBUTYNIN CHLORIDE 5 MG TABLET PO SCH (09:00)
[2018-02-08 11:02] VITALS: BP 151/78
[2018-02-08] MEDS: NICOTINE 21MG PATCH. TD SCH (12:29)
[2018-02-08] MEDS ORDERED: DEXTROSE 50% 25 GM / 50ML DISP.SYRIN. IV PRN (12:30)
[2018-02-08 15:32] VITALS: BP 136/60
[2018-02-08] MEDS ORDERED: INSULIN ASPART 300 UNITS/3 ML INSULN.PEN SQ SCH (16:30)
[2018-02-08 19:00] VITALS: BP 159/83
[2018-02-08] MEDS: PRAZOSIN 1 MG CAPSULE. PO SCH (19:54)
[2018-02-08] MEDS: traZODone 100 MG TABLET. PO SCH (19:54)
--- NOTE | 2018-02-08 23:08 | PN ---
DATE: 02/08/2018 SUBJECTIVE: The patient is sitting comfortably in her chair in no apparent distress. She stated that she is generally feeling much better. She was on metformin before; her primary care physician has discontinued that. Her blood sugar apparently was slightly elevated as she has been on steroids. PHYSICAL EXAMINATION: GENERAL: When I examined her this afternoon, she looked well and was clearly in no apparent respiratory distress, pale. No jaundice, cyanosis or thyromegaly. No jugular venous distension. No limb edema. VITAL SIGNS: Her heart rate was 75, blood pressure was 136/60, temperature was 98.3, respiratory rate 22 and oxygen saturation was 96%. HEAD, EYES, EARS, NOSE AND THROAT: Showed normocephalic, atraumatic. NECK: Supple. HEART: Showed normal first and second heart sounds with no gallop, rub or murmur. CHEST: Clear to auscultation. No crepitation or rhonchi. ABDOMEN: Distended, soft, nontender. No guarding or rigidity. No organomegaly. All hernial orifices intact. Bowel sounds normal. NEUROLOGIC: She is awake, alert, responding appropriately. Cranial nerves intact. She moves extremities without difficulty. She ambulates without assistance or assistive devices. Her intake was 2770, output was 1550. LABORATORY DATA: As of this morning showed a serum sodium 140, potassium 4.2, chloride 103, bicarbonate 28, anion gap of 9, BUN 15, creatinine 0.7, estimated GFR was 85 mL per minute. Her glucose 193, calcium was 9.1. Total bilirubin, AST, ALT, alkaline phosphatase were normal. Total protein was 6.5, albumin was 2.9. White cell count was 20,000, hemoglobin 14.4, hematocrit 43, MCV 94 and platelet count of 161,000. Her nasal screen for MRSA by PCR was negative. Her chest x-ray showed no acute cardiopulmonary abnormalities detected. ASSESSMENT: Chronic obstructive pulmonary disease exacerbation. To continue with nebulizer treatment. I would discontinue her Solu-Medrol. Other medical problems include type 2 diabetes, hypertension, osteoarthritis, chronic back pain, overactive bladder, bipolar disorder. EDOUARD HERRERA MD DR: FELA/reshma JOB#: [id number] / [id number]
[2018-02-08 23:22] VITALS: BP 142/74
[2018-02-09 05:03] VITALS: BP 147/80
[2018-02-09] MEDS: IPRATRPIUM/ALBUTEROL 0.5/2.5MG 3 ML NEBU. NEB SCH ×2 (05:47→11:04)
[2018-02-09] MEDS: INSULIN ASPART 300 UNITS/3 ML INSULN.PEN SQ SCH ×2 (07:30→12:01)
[2018-02-09] MEDS: buPROPion XL 150 MG TAB.ER.24H PO SCH (08:49)
[2018-02-09] MEDS: DOCUSATE SODIUM 100 MG CAPSULE PO SCH (08:49)
[2018-02-09] MEDS: OXYBUTYNIN CHLORIDE 5 MG TABLET PO SCH (08:49)
[2018-02-09] MEDS: NICOTINE 21MG PATCH. TD SCH (08:52)
[2018-02-09] MEDS ORDERED: predniSONE 20 MG TABLET PO SCH (09:00)
[2018-02-09 10:23] VITALS: BP 148/86
--- NOTE | 2018-02-09 14:23 | DS ---
DATE OF DISCHARGE: 02/09/2018 HOSPITAL COURSE: The patient is a 62-year-old female patient, who was admitted with increasing shortness of breath and she was less tachypneic, wheezy. She has also greenish productive cough that is unchanged from usual. We did start her on bronchodilator as well as Solu-Medrol. Her chest x-ray showed no pulmonary infiltrate and the patient did not require any antibiotic therapy. She did very well when I saw her today. She was sitting comfortably in her chair, in no apparent distress. The nursing staff said that she has been up and about without any assistance or assistive devices. She did not require any oxygen. PHYSICAL EXAMINATION: GENERAL: When examined her, she looked well and showed that there was no pallor, jaundice, cyanosis, or thyromegaly. No jugular venous distension. No lower limb edema. VITAL SIGNS: Her heart rate was 89, blood pressure 148/86, temperature was 98.2, respiratory rate 20, and oxygen saturation was 97%. HEAD, EYES, EARS, NOSE AND THROAT: Showed normocephalic, atraumatic. NECK: Supple. HEART: Showed normal first and second heart sounds with no gallop, rub or murmur. CHEST: Clear to auscultation. No crepitation or rhonchi. ABDOMEN: Distended, soft, nontender. NEUROLOGIC: She is awake, alert, responding appropriately. Cranial nerves are intact. She moves extremities without difficulty, ambulates without assistance or assistive devices. LABORATORY DATA: Her lab work this morning showed a white cell count of 30,000, hemoglobin 14.4, hematocrit 43, MCV 94, and platelet count 261,000. Her chemistry showed a serum sodium 140, potassium 4.2, chloride 103, bicarbonate 28, anion gap of 9, BUN 15, creatinine 0.7, estimated GFR 85 mL per minute. Her glucose was 183, calcium 9.1. Total bilirubin, AST, ALT, alkaline phosphatase were normal. Total protein was 6.5, albumin 2.9. DISCHARGE MEDICATIONS: She was discharged home to continue on albuterol sulfate by nebulizer every 4 hours, Wellbutrin 150 mg once a day, docusate sodium 100 mg twice a day, hydrocodone/APAP 5/325 one tablet every 6 hours., oxybutynin chloride 5 mg daily, prazosin 2 mg at nighttime, prednisone, ____ Medrol Dosepak, and trazodone 100 mg at bedtime. FINAL DISCHARGE DIAGNOSES: Chronic obstructive pulmonary disease exacerbation, type 2 diabetes, hypertension, osteoarthritis, chronic back pain, overactive bladder, bipolar disorder. EDOUARD HERRERA MD DR: FELA/reshma JOB#: [id number] / [id number]
== END 2018-02-09 14:35 | disposition home or self-care (01) | DRG 189 ==
LOC: ER 00:12 → 1 SOUTH 02:31
PROVIDERS: ADMIT Internal Medicine; ATTEND Internal Medicine
DX: J96.20 Acute and chronic respiratory failure, unspecified whether with hypoxia or hypercapnia (principal); J44.1 Chronic obstructive pulmonary disease with (acute) exacerbation; D72.829 Elevated white blood cell count, unspecified; E11.9 Type 2 diabetes mellitus without complications; F17.210 Nicotine dependence, cigarettes, uncomplicated; F31.9 Bipolar disorder, unspecified; G89.29 Other chronic pain; I10 Essential (primary) hypertension; M54.9 Dorsalgia, unspecified; N32.81 Overactive bladder; M19.90 Unspecified osteoarthritis, unspecified site; Z82.49 Family history of ischemic heart disease and other diseases of the circulatory system; Z90.710 Acquired absence of both cervix and uterus; Z90.49 Acquired absence of other specified parts of digestive tract; Z98.42 Cataract extraction status, left eye; Z98.41 Cataract extraction status, right eye; Z88.8 Allergy status to other drugs, medicaments and biological substances; Z81.8 Family history of other mental and behavioral disorders; Z88.3 Allergy status to other anti-infective agents
CPT/HCPCS: 36415; 71045; 80053; 82947; 83880; 84484; 85007; 85025; 85027; 87641; 93005; 94640; 94760; 96374; J1815; J2920; J2930; J7512; J7620; 99291-25

== ENCOUNTER → 2018-07-12 | Outpatient (CLI) | payer MEDICARE ==
[~2018-07-12] MED LIST changes: +ALBU2.5V5; -AMLO10TA2 PO; +AMLO10TA6 PO; +METF500T16 PO; -METF500T4 PO; +OXYB5TAB7; +TRAZ-86 PO; -TRAZ-90 PO
--- NOTE | 2018-07-12 17:12 | RAD ---
Lumbar spine, 3 views, 07/12/2018: HISTORY: Chronic back pain The lumbar vertebral heights are well-maintained. There are moderate scattered marginal spurs. There are moderate degenerative changes involving the facet joints in the lower lumbar spine. No fracture is identified. There appears to be a slight reverse spondylolisthesis at L3-4 due to facet joint arthropathy. Moderate aortoiliac calcific plaquing is present. IMPRESSION: 1. Moderate multilevel degenerative change. 2. No acute bony abnormality is detected. Electronically signed by: Vish Porras MD (07/12/2018 5:09 PM) [facility]
== END | disposition home or self-care (01) ==
LOC: DXRAD 12:05
PROVIDERS: ATTEND Family Medicine
DX: M47.896 Other spondylosis, lumbar region (principal); I10 Essential (primary) hypertension; E11.9 Type 2 diabetes mellitus without complications; J44.9 Chronic obstructive pulmonary disease, unspecified; Z87.891 Personal history of nicotine dependence; Z90.49 Acquired absence of other specified parts of digestive tract; Z90.710 Acquired absence of both cervix and uterus; Z88.1 Allergy status to other antibiotic agents; Z88.3 Allergy status to other anti-infective agents; Z88.8 Allergy status to other drugs, medicaments and biological substances; Z82.49 Family history of ischemic heart disease and other diseases of the circulatory system; Z81.8 Family history of other mental and behavioral disorders
CPT/HCPCS: 72100

== ENCOUNTER 2019-04-06 12:00 | Emergency (ER) | payer MEDICARE, MEDICAID ==
[~2019-04-06] VITALS: Ht 152.4 cm; Wt 90.7 kg
[~2019-04-06 12:00] MED LIST changes: -AMLO10TA6 PO; +AMLO10TA8 PO; +HYDR-2155 PO; -HYDR-2758 PO; +HYDR-3165 PO; -HYDR-971 PO
[2019-04-06] MEDS ORDERED: IV NORMAL SALINE 1,000ML 1,000 ML IV SCH (12:09)
--- NOTE | 2019-04-06 12:16 | PHYS DOC ---
Past History Past Medical History: Arthritis, COPD, Hypertension Past Surgical History: Hysterectomy, Other Smoking: Cigarettes Alcohol Use: None Drug Use: None Adult General Chief Complaint Chief Complaint: HEADACHE HPI HPI Patient is a 63-year-old female who presents to the emergency department for evaluation. She states on Wednesday, she fell in her home, she thinks she got lightheaded and passed out, she does not recall the circumstances of the fall. She states that she hit her head, and does have a mild headache since that time. Her main complaint, however, his pain in her left foot, which is bruised distally, and the patient states she thinks she broke her foot. She also complains of some pain in her left knee. She denies any neck pain. She does admit some lower back pain. She has not had any chest pain or palpitations, nausea, vomiting. When asked why she took so long to come to the emergency department, she states that she is stubborn. She does smell of alcohol, but states she drinks rarely and only had one beer today. There are no alleviating or exacerbating factors to her symptoms, except that movement and palpation of the affected areas seem to worsen her pain. Review of Systems Review of Systems Constitutional: Denies fever or chills [] Eyes: Denies change in visual acuity, redness, or eye pain [] HENT: Denies nasal congestion or sore throat [] Respiratory: Denies cough or shortness of breath [] Cardiovascular:The patient denies any shortness of breath, chest pain, palpitations, or orthopnea [] GI: Denies abdominal pain, nausea, vomiting, bloody stools or diarrhea [] : Denies dysuria or hematuria [] Musculoskeletal: Denies neck or joint pain [] Integument: Denies rash or skin lesions [] Neurologic: Denies focal weakness or sensory changes [] Endocrine: Denies polyuria or polydipsia [] All other systems were reviewed and found to be within normal limits, except as documented in this note. Allergies Allergies Allergies Coded Allergies Type Severity Reaction Last Updated Verified sulfamethoxazole Allergy Intermediate 08/28/17 Yes trimethoprim Allergy Intermediate 08/28/17 Yes Physical Exam Physical Exam PHYSICAL EXAM: CONSTITUTIONAL: Well developed, well nourished HEAD: normocephalic, atraumatic, there is no reproducible tenderness to palpation. EENT: PERRL, EOMI. Conjunctivae are injected bilaterally,, sclerae non-icteric; moist mucous membranes. NECK: Supple, non-tender; no meningismus.There is full, painless range of motion of the cervical spine, without any focal bony midline tenderness to palpation. LUNGS: Lungs CTA, breathing even and unlabored. Normal air movement. HEART: Regular rate and rhythm, no murmur CHEST: No deformity; non-tender ABDOMEN: The abdomen is soft, and non-tender, no masses or bruits. EXTREM: Normal ROM; no deformity, no calf tenderness. Normal pulses palpable in all extremities. There is no pedal edema. There is edema noted to the left foot distally, with discoloration of the toes, consistent with contusion. There is tenderness to palpation to the distal foot. There is a strong dorsalis pedis pulse on the left. There is mild tenderness to palpation to the left knee, without any ligamentous laxity to anterior, posterior, medial, or lateral stress, or any focal bony tenderness to palpation or deformity. The remainder the extremities are atraumatic. SKIN: No rash; no diaphoresis NEURO: Alert; normal speech and cognition; CN's grossly intact; strength grossly intact without focal deficit. BACK: No CVA TTP. There is mild diffuse tenderness to palpation to the lumbar spine. There is no thoracic spinal tenderness to palpation. Current Patient Data Lab Results Laboratory Tests Test 04/06/19 12:30 White Blood Count 11.9 x10^3/uL Red Blood Count 5.11 x10^6/uL Hemoglobin 16.0 g/dL Hematocrit 47.6 % Mean Corpuscular Volume 93 fL Mean Corpuscular Hemoglobin 31 pg Mean Corpuscular Hemoglobin Concent 34 g/dL Red Cell Distribution Width 14.6 % Platelet Count 464 x10^3/uL Neutrophils (%) (Auto) 81 % Lymphocytes (%) (Auto) 11 % Monocytes (%) (Auto) 6 % Eosinophils (%) (Auto) 1 % Basophils (%) (Auto) 1 % Neutrophils # (Auto) 9.6 x10^3uL Lymphocytes # (Auto) 1.3 x10^3/uL Monocytes # (Auto) 0.8 x10^3/uL Eosinophils # (Auto) 0.1 x10^3/uL Basophils # (Auto) 0.1 x10^3/uL Prothrombin Time 9.7 SEC Prothromb Time International Ratio 1.0 Activated Partial Thromboplast Time 25 SEC Sodium Level 137 mmol/L Potassium Level 3.7 mmol/L Chloride Level 98 mmol/L Carbon Dioxide Level 27 mmol/L Anion Gap 12 Blood Urea Nitrogen 6 mg/dL Creatinine 0.7 mg/dL Estimated GFR (Cockcroft-Gault) 85.1 BUN/Creatinine Ratio 9 Glucose Level 231 mg/dL Calcium Level 9.1 mg/dL Magnesium Level 1.9 mg/dL Total Bilirubin 0.4 mg/dL Aspartate Amino Transf (AST/SGOT) 29 U/L Alanine Aminotransferase (ALT/SGPT) 42 U/L Alkaline Phosphatase 119 U/L Troponin I Quantitative < 0.017 ng/mL Total Protein 7.7 g/dL Albumin 3.5 g/dL Albumin/Globulin Ratio 0.8 Ethyl Alcohol Level 40 mg/dL Current Medications Medications (Trade) Dose Ordered Sig/Nicolás Route PRN Reason Start Time Stop Time Status Last Admin Dose Admin Sodium Chloride 1,000 ml @ 1,000 mls/hr Q1H IV 04/06/19 12:09 04/06/19 13:08 DC 04/06/19 12:38 EKG EKG Normal sinus rhythm at a rate of 96 bpm, normal axis, right bundle-branch block with otherwise normal intervals. There are no acute ischemic ST/T changes, EKG is unchanged compared to patient's prior EKG from January 2018.[] Radiology/Procedures Radiology/Procedures [PROCEDURE: PORTABLE CHEST 1V Examination: 3 views of the left foot, 3 views of the left knee, 2 views of the cervical spine, frontal view of the chest HISTORY: History of fall, pain FINDINGS: Left foot: There is nondisplaced transverse fracture of the base of the proximal phalanx of the fourth toe. Questionable lucency identified in the proximal portion of the proximal phalanx of the fifth toe probably artifactual or fracture. Small inferior and posterior calcaneal enthesophyte identified. Mild soft tissue swelling identified dorsal to the mid foot. Lucent hypodensity identified in the medial aspect of the navicular bone probably fusion of the ossicle. Left knee: The alignment of the knee joint grossly appears unremarkable. There is no obvious acute fracture dislocation identified. Mild chondrocalcinosis identified in the medial and lateral meniscus region. Lumbar spine: Moderate degenerative changes thoracic lumbar spine. Minimal 4 mm retrolisthesis of L3 on L4. The facets are well aligned. Portable chest: The cardiomediastinal silhouette grossly appears unremarkable. Mild right lung base airspace opacities likely atelectasis or infiltrate. IMPRESSION: 1. Transverse nondisplaced fracture of the base of the proximal phalanx of the fourth toe. 2. Questionable fracture artifact of the proximal phalanx of the fifth toe. 3. Lucent hypodensity identified in the medial aspect of the left navicular bone probably fusion of the ossicle. 4. Mild chondrocalcinosis left knee. 5. Moderate degenerative changes lumbar spine. 6. Minimal right lung base airspace opacities likely atelectasis or infiltrate. ] Course & Med Decision Making Course & Med Decision Making She ambulates Pertinent Labs and Imaging studies reviewed. (See chart for details) []1:45 PM:Patient remains stable. I discussed test results, the need for close follow-up, and return precautions. The patient will be placed in a postop shoe. She ambulates with a walker at baseline at home. The fourth and fifth toes will be mandi taped. I also discussed importance of limiting alcohol consumption to decrease fall risk. Dragon Disclaimer Dragon Disclaimer This electronic medical record was generated, in whole or in part, using a voice recognition dictation system. Departure Departure: Impression: Primary Impression: Toe fracture, left Additional Impressions: Knee contusion Fall Disposition: 01 HOME, SELF-CARE Condition: STABLE Referrals: MARIAN POOLE MD (PCP) Patient Instructions: Mandi Taping of Toes, Contusion, Fall Prevention and Home Safety, Toe Fracture Additional Instructions: Please follow up with the orthopedics group at [facility], call [phone] to schedule appointment. Problem Qualifiers NADYA DOW MD Apr 06, 2019 12:16
[2019-04-06 12:45] LABS: BASO # 0.1 x10^3/uL (0.0-0.2); BASO % 1 % (0-3); EOS # 0.1 x10^3/uL (0.0-0.7); EOS % 1 % (0-3); HEMATOCRIT 47.6 % (36.0-47.0); LYMPH # 1.3 x10^3/uL (1.0-4.8); LYMPH % 11 % (24-48); MEAN CORPUSCULAR HEMOGLOBIN 31 pg (25-35); MEAN CORPUSCULAR HGB CONC 34 g/dL (31-37); MEAN CORPUSCULAR VOLUME 93 fL (79-100); MONO # 0.8 x10^3/uL (0.0-1.1); MONO % 6 % (0-9); NEUT # 9.6 x10^3uL (1.8-7.7); NEUT % 81 % (31-73); PLATELET COUNT 464 x10^3/uL (140-400); RED BLOOD COUNT 5.11 x10^6/uL (3.50-5.40); RED CELL DISTRIBUTION WIDTH 14.6 % (11.5-14.5); WHITE BLOOD COUNT 11.9 x10^3/uL (4.0-11.0)
[2019-04-06 12:58] LABS: ALBUMIN 3.5 g/dL (3.4-5.0); ALBUMIN/GLOBULIN RATIO 0.8 (1.0-1.7); CALCIUM 9.1 mg/dL (8.5-10.1); CREATININE 0.7 mg/dL (0.6-1.0); GFR 85.1; MAGNESIUM 1.9 mg/dL (1.8-2.4); POTASSIUM 3.7 mmol/L (3.5-5.1); TOTAL BILIRUBIN 0.4 mg/dL (0.2-1.0); TOTAL PROTEIN 7.7 g/dL (6.4-8.2)
--- NOTE | 2019-04-06 13:37 | RAD ---
Examination: 3 views of the left foot, 3 views of the left knee, 2 views of the cervical spine, frontal view of the chest HISTORY: History of fall, pain FINDINGS: Left foot: There is nondisplaced transverse fracture of the base of the proximal phalanx of the fourth toe. Questionable lucency identified in the proximal portion of the proximal phalanx of the fifth toe probably artifactual or fracture. Small inferior and posterior calcaneal enthesophyte identified. Mild soft tissue swelling identified dorsal to the mid foot. Lucent hypodensity identified in the medial aspect of the navicular bone probably fusion of the ossicle. Left knee: The alignment of the knee joint grossly appears unremarkable. There is no obvious acute fracture dislocation identified. Mild chondrocalcinosis identified in the medial and lateral meniscus region. Lumbar spine: Moderate degenerative changes thoracic lumbar spine. Minimal 4 mm retrolisthesis of L3 on L4. The facets are well aligned. Portable chest: The cardiomediastinal silhouette grossly appears unremarkable. Mild right lung base airspace opacities likely atelectasis or infiltrate. IMPRESSION: 1. Transverse nondisplaced fracture of the base of the proximal phalanx of the fourth toe. 2. Questionable fracture artifact of the proximal phalanx of the fifth toe. 3. Lucent hypodensity identified in the medial aspect of the left navicular bone probably fusion of the ossicle. 4. Mild chondrocalcinosis left knee. 5. Moderate degenerative changes lumbar spine. 6. Minimal right lung base airspace opacities likely atelectasis or infiltrate. Electronically signed by: Nasim George MD (04/06/2019 1:34 PM) [place] [id number]
[2019-04-06 13:54] VITALS: BP 158/98
--- NOTE | 2019-04-06 14:32 | EKG ---
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
== END 2019-04-06 14:10 | disposition home or self-care (01) ==
LOC: ER 12:00
DX: S92.515A Nondisplaced fracture of proximal phalanx of left lesser toe(s), initial encounter for closed fracture (principal); S80.02XA Contusion of left knee, initial encounter; M11.262 Other chondrocalcinosis, left knee; M47.896 Other spondylosis, lumbar region; R42 Dizziness and giddiness; R51 Headache; M19.90 Unspecified osteoarthritis, unspecified site; J44.9 Chronic obstructive pulmonary disease, unspecified; I10 Essential (primary) hypertension; F17.210 Nicotine dependence, cigarettes, uncomplicated; Z88.1 Allergy status to other antibiotic agents; Z88.2 Allergy status to sulfonamides; W18.39XA Other fall on same level, initial encounter; Y93.89 Activity, other specified; Y92.098 Other place in other non-institutional residence as the place of occurrence of the external cause; Y99.8 Other external cause status
CPT/HCPCS: 36415; 71045; 72100; 73562; 73630; 80053; 83735; 84484; 85025; 85610; 85730; 93005; 96360; 99285; G0480; J7030

== ENCOUNTER 2019-10-05 08:51 | Emergency (ER) | payer MEDICARE, MEDICAID ==
[~2019-10-05] VITALS: Ht 152.4 cm; Wt 81.6 kg
[~2019-10-05 08:51] MED LIST changes: -OXYB5TAB PO; +OXYB5TAB10; +OXYB5TAB3 PO; -OXYB5TAB7
[2019-10-05] MEDS ORDERED: IV NORMAL SALINE 1,000ML 1,000 ML IV SCH (09:13)
[2019-10-05] MEDS ORDERED: ACETAMINOPHEN 500 MG TABLET PO ONE (09:15)
--- NOTE | 2019-10-05 09:19 | PHYS DOC ---
Past History Past Medical History: Arthritis, Bipolar, COPD, Depression, Hypertension, Other Additional Past Medical Histor: DDD in back Past Surgical History: Hysterectomy, Other Additional Past Surgical Histo: cataracts bilat Smoking: Cigarettes Alcohol Use: Rarely Drug Use: None Adult General Chief Complaint Chief Complaint: DIZZY/LIGHT HEADED HPI HPI Patient is a 64-year-old female who presents to the emergency department for evaluation. She states that on Wednesday, she tripped over her dog and fell to the ground, striking the left side of her head on concrete. She states that since that time she has felt dizzy, which she describes as a sense of faintness and lightheadedness, she denies any rotation, hearing changes, tinnitus, vision changes, numbness, or focal weakness. She denies any neck pain, abdominal pain, nausea, or vomiting. However, she states that she did develop some diarrhea this morning, and had 3 loose, nonbloody stools. She denies any recent travel or antibiotic use. She denies any chest pain, increased shortness of breath or change in cough compared to her baseline (she has a history of COPD). There are no alleviating or exacerbating factors to her symptoms. She normally ambulates with the use of a wheeled walker. Review of Systems Review of Systems Constitutional: Denies fever or chills [] Eyes: Denies change in visual acuity, redness, or eye pain [] HENT: Denies nasal congestion or sore throat [] Respiratory: Denies new cough or shortness of breath [] Cardiovascular: The patient denies any shortness of breath, chest pain, palpitations, or orthopnea [] GI: Denies abdominal pain, nausea, vomiting, bloody stools or diarrhea [] : Denies dysuria or hematuria [] Musculoskeletal: Denies back pain or joint pain [] Integument: Denies rash or skin lesions [] Neurologic: Denies headache (other than pain at the impact site on the left side of her head), focal weakness or sensory changes [] Endocrine: Denies polyuria or polydipsia [] All other systems were reviewed and found to be within normal limits, except as documented in this note. Allergies Allergies Allergies Coded Allergies Type Severity Reaction Last Updated Verified sulfamethoxazole Allergy Intermediate 10/05/19 Yes trimethoprim Allergy Intermediate 10/05/19 Yes Uncoded Allergies Type Severity Reaction Last Updated Verified msg Allergy Unknown Rash 10/05/19 Physical Exam Physical Exam PHYSICAL EXAM: CONSTITUTIONAL: Well developed, well nourished HEAD: normocephalic, there is a small contusion on the left temporal area, the remainder of the cranium is atraumatic EENT: PERRL, EOMI. Conjunctivae normal color, sclerae non-icteric; moist mucous membranes. NECK: Supple, non-tender; no meningismus. LUNGS: There are mild scattered rhonchi, and wheezes, breathing even and unlabored. Normal air movement. HEART: Regular rate and rhythm, no murmur CHEST: No deformity; non-tender ABDOMEN: The abdomen is soft, and non-tender, no masses or bruits. EXTREM: Normal ROM; no deformity, no calf tenderness. Normal pulses palpable in all extremities. There is no pedal edema. SKIN: No rash; no diaphoresis NEURO: Alert; normal speech and cognition; CN's grossly intact; strength grossly intact without focal deficit. BACK: No CVA TTP. There is mild tenderness to palpation to the thoracic spine, both midline and paraspinal, without focal bony tenderness to palpation. Current Patient Data Lab Results Laboratory Tests Test 10/05/19 09:10 White Blood Count 13.5 x10^3/uL Red Blood Count 5.29 x10^6/uL Hemoglobin 16.4 g/dL Hematocrit 49.9 % Mean Corpuscular Volume 94 fL Mean Corpuscular Hemoglobin 31 pg Mean Corpuscular Hemoglobin Concent 33 g/dL Red Cell Distribution Width 15.2 % Platelet Count 293 x10^3/uL Neutrophils (%) (Auto) 80 % Lymphocytes (%) (Auto) 11 % Monocytes (%) (Auto) 7 % Eosinophils (%) (Auto) 1 % Basophils (%) (Auto) 1 % Neutrophils # (Auto) 10.8 x10^3uL Lymphocytes # (Auto) 1.5 x10^3/uL Monocytes # (Auto) 0.9 x10^3/uL Eosinophils # (Auto) 0.1 x10^3/uL Basophils # (Auto) 0.1 x10^3/uL Sodium Level 136 mmol/L Potassium Level 4.3 mmol/L Chloride Level 99 mmol/L Carbon Dioxide Level 26 mmol/L Anion Gap 11 Blood Urea Nitrogen 3 mg/dL Creatinine 0.7 mg/dL Estimated GFR (Cockcroft-Gault) 84.8 BUN/Creatinine Ratio 4 Glucose Level 273 mg/dL Calcium Level 9.1 mg/dL Total Bilirubin 0.3 mg/dL Aspartate Amino Transf (AST/SGOT) 46 U/L Alanine Aminotransferase (ALT/SGPT) 54 U/L Alkaline Phosphatase 124 U/L Total Protein 7.4 g/dL Albumin 3.5 g/dL Albumin/Globulin Ratio 0.9 Current Medications Medications (Trade) Dose Ordered Sig/Nicolás Route PRN Reason Start Time Stop Time Status Last Admin Dose Admin Acetaminophen (Tylenol) 1,000 mg 1X ONCE PO 10/05/19 09:15 10/05/19 09:26 DC 10/05/19 09:25 Sodium Chloride 1,000 ml @ 1,000 mls/hr Q1H IV 10/05/19 09:13 10/05/19 10:12 10/05/19 09:25 EKG EKG Normal sinus rhythm at a rate of 100 beats for minute, normal axis, right bundle-branch block, with otherwise normal intervals. There are no acute ischemic ST/T changes.[] Radiology/Procedures Radiology/Procedures PROCEDURE: PORTABLE CHEST 1V PORTABLE CHEST 1V Clinical indications: Chronic cough. COPD COMPARISON: April 06, 2019. Findings: No acute lung infiltrate or pleural effusion or pulmonary edema or lung mass or pneumothorax is seen. The heart size, pulmonary vasculature, mediastinum and both marlene are unremarkable. Impression: No acute radiographic abnormality is seen. [] PROCEDURE: THORACIC SPINE 3V Three-view thoracic spine series Clinical indications: Back pain. Chronic cough. COPD. FINDINGS: No compression fracture or discitis or lytic process is evident. Minimal scoliotic curvature is seen. There is mild to moderate degenerative endplate spurring throughout the thoracic spine. IMPRESSION: No acute compression fracture. PROCEDURE: CT HEAD WO CONTRAST CT HEAD WO CONTRAST Clinical indications: Fall. Left-sided pain. Dizziness. COMPARISON: None available. Technique: Noncontrast axial cross sectional scanning of the head was performed. PQRS compliance Statement One or more of the following individualized dose reduction techniques were utilized for this study: 1. Automated exposure control 2. Adjustment of the mA and/or kV according to patient size 3. Use of iterative reconstruction technique Findings: No acute intracranial hemorrhage or midline shift or mass-effect or hydrocephalus or extra-axial fluid collection is seen. No focal hypodense area or sulci effacement is seen to indicate an acute infarct or edema radiographically. No skull fracture or pneumocephalus is seen. No opacification of the mastoid sinuses or the middle ear cavities or the paranasal sinuses is seen. The maxillary sinuses are not completely seen in this study. Impression: No acute intracranial abnormality is seen. Course & Med Decision Making Course & Med Decision Making 10:15 AM: The patient's condition remains stable. She is feeling somewhat better at this time. I discussed test results with the patient including her elevated blood glucose, although nonfasting, and the need for further outpatient evaluation of diabetes. I discussed importance of adequate oral hydration and return precautions in detail. The patient's white blood cell count is similar to her prior values. Pertinent Labs and Imaging studies reviewed. (See chart for details) [] Dragon Disclaimer Dragon Disclaimer This electronic medical record was generated, in whole or in part, using a voice recognition dictation system. Departure Departure: Impression: Primary Impression: Dizziness Additional Impression: Accidental fall Disposition: 01 HOME, SELF-CARE Condition: STABLE Referrals: MARIAN POOLE MD (PCP) Patient Instructions: Diarrhea, Dizziness, Head Injury, Adult Additional Instructions: Your blood sugar was noted to be elevated today. Please contact your primary care provider for further outpatient testing and evaluation. Problem Qualifiers NADYA DOW MD Oct 05, 2019 09:19
[2019-10-05 09:22] LABS: BASO # 0.1 x10^3/uL (0.0-0.2); BASO % 1 % (0-3); EOS # 0.1 x10^3/uL (0.0-0.7); EOS % 1 % (0-3); HEMATOCRIT 49.9 % (36.0-47.0); HEMOGLOBIN 16.4 g/dL (12.0-15.5); LYMPH # 1.5 x10^3/uL (1.0-4.8); LYMPH % 11 % (24-48); MEAN CORPUSCULAR HEMOGLOBIN 31 pg (25-35); MEAN CORPUSCULAR HGB CONC 33 g/dL (31-37); MEAN CORPUSCULAR VOLUME 94 fL (79-100); MONO # 0.9 x10^3/uL (0.0-1.1); MONO % 7 % (0-9); NEUT # 10.8 x10^3uL (1.8-7.7); NEUT % 80 % (31-73); PLATELET COUNT 293 x10^3/uL (140-400); RED BLOOD COUNT 5.29 x10^6/uL (3.50-5.40); RED CELL DISTRIBUTION WIDTH 15.2 % (11.5-14.5); WHITE BLOOD COUNT 13.5 x10^3/uL (4.0-11.0)
[2019-10-05 09:48] LABS: ALBUMIN 3.5 g/dL (3.4-5.0); ALBUMIN/GLOBULIN RATIO 0.9 (1.0-1.7); CALCIUM 9.1 mg/dL (8.5-10.1); CREATININE 0.7 mg/dL (0.6-1.0); GFR 84.8; POTASSIUM 4.3 mmol/L (3.5-5.1); TOTAL BILIRUBIN 0.3 mg/dL (0.2-1.0); TOTAL PROTEIN 7.4 g/dL (6.4-8.2)
--- NOTE | 2019-10-05 09:50 | RAD ---
CT HEAD WO CONTRAST Clinical indications: Fall. Left-sided pain. Dizziness. COMPARISON: None available. Technique: Noncontrast axial cross sectional scanning of the head was performed. PQRS compliance Statement One or more of the following individualized dose reduction techniques were utilized for this study: 1. Automated exposure control 2. Adjustment of the mA and/or kV according to patient size 3. Use of iterative reconstruction technique Findings: No acute intracranial hemorrhage or midline shift or mass-effect or hydrocephalus or extra-axial fluid collection is seen. No focal hypodense area or sulci effacement is seen to indicate an acute infarct or edema radiographically. No skull fracture or pneumocephalus is seen. No opacification of the mastoid sinuses or the middle ear cavities or the paranasal sinuses is seen. The maxillary sinuses are not completely seen in this study. Impression: No acute intracranial abnormality is seen. Electronically signed by: Jose Zhang MD (10/05/2019 9:48 AM) [facility]
--- NOTE | 2019-10-05 09:54 | RAD ---
PORTABLE CHEST 1V Clinical indications: Chronic cough. COPD COMPARISON: April 06, 2019. Findings: No acute lung infiltrate or pleural effusion or pulmonary edema or lung mass or pneumothorax is seen. The heart size, pulmonary vasculature, mediastinum and both marlene are unremarkable. Impression: No acute radiographic abnormality is seen. Electronically signed by: Jose Zhang MD (10/05/2019 9:51 AM) [facility]
--- NOTE | 2019-10-05 09:56 | RAD ---
Three-view thoracic spine series Clinical indications: Back pain. Chronic cough. COPD. FINDINGS: No compression fracture or discitis or lytic process is evident. Minimal scoliotic curvature is seen. There is mild to moderate degenerative endplate spurring throughout the thoracic spine. IMPRESSION: No acute compression fracture. Electronically signed by: Jose Zhang MD (10/05/2019 9:53 AM) [facility]
[2019-10-05 10:34] VITALS: BP 150/81
--- NOTE | 2019-10-06 08:18 | EKG ---
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
== END 2019-10-05 10:53 | disposition home or self-care (01) ==
LOC: ER 08:51
DX: S00.83XA Contusion of other part of head, initial encounter (principal); R19.7 Diarrhea, unspecified; R42 Dizziness and giddiness; M54.6 Pain in thoracic spine; M19.90 Unspecified osteoarthritis, unspecified site; F31.9 Bipolar disorder, unspecified; J44.9 Chronic obstructive pulmonary disease, unspecified; I10 Essential (primary) hypertension; F17.210 Nicotine dependence, cigarettes, uncomplicated; Z88.2 Allergy status to sulfonamides; Z88.1 Allergy status to other antibiotic agents; W01.0XXA Fall on same level from slipping, tripping and stumbling without subsequent striking against object, initial encounter; Y93.89 Activity, other specified; Y92.89 Other specified places as the place of occurrence of the external cause; Y99.8 Other external cause status
CPT/HCPCS: 36415; 70450; 71045; 72072; 80053; 85025; 93005; 96360; 99285-25; J7030

== ENCOUNTER 2019-11-17 06:50 | Observation (INO) | payer MEDICARE, MEDICAID ==
[~2019-11-17] VITALS: Ht 152.4 cm; Wt 81.3 kg
[~2019-11-17 06:50] MED LIST changes: +OXYB-36 PO; -OXYB5TAB3 PO; +TRAZ-125 PO; -TRAZ-86 PO
[2019-11-17] MEDS ORDERED: IPRATRPIUM/ALBUTEROL 0.5/2.5MG 3 ML NEBU. NEB ONE (07:15)
--- NOTE | 2019-11-17 07:35 | RAD ---
AP chest. HISTORY: Short of breath AP view was taken of the chest. Lungs are free of infiltrates. Heart is normal in size. There is no pleural effusion. IMPRESSION: 1. No acute infiltrates. Electronically signed by: Quintin Maldonado MD (11/17/2019 7:32 AM) [id number]
[2019-11-17 07:48] LABS: BASO # 0.1 x10^3/uL (0.0-0.2); BASO % 1 % (0-3); EOS # 0.1 x10^3/uL (0.0-0.7); EOS % 1 % (0-3); HEMATOCRIT 47.9 % (36.0-47.0); HEMOGLOBIN 15.9 g/dL (12.0-15.5); LYMPH # 2.1 x10^3/uL (1.0-4.8); LYMPH % 20 % (24-48); MEAN CORPUSCULAR HEMOGLOBIN 32 pg (25-35); MEAN CORPUSCULAR HGB CONC 33 g/dL (31-37); MEAN CORPUSCULAR VOLUME 95 fL (79-100); MONO # 0.7 x10^3/uL (0.0-1.1); MONO % 7 % (0-9); NEUT # 7.3 x10^3uL (1.8-7.7); NEUT % 70 % (31-73); PLATELET COUNT 349 x10^3/uL (140-400); RED BLOOD COUNT 5.06 x10^6/uL (3.50-5.40); RED CELL DISTRIBUTION WIDTH 15.6 % (11.5-14.5); WHITE BLOOD COUNT 10.4 x10^3/uL (4.0-11.0)
--- NOTE | 2019-11-17 07:55 | PHYS DOC ---
Past History Past Medical History: Arthritis, Bipolar, COPD, Depression, Hypertension, Other Additional Past Medical Histor: DDD in back Past Surgical History: Hysterectomy, Other Additional Past Surgical Histo: cataracts bilat Smoking: Cigarettes Alcohol Use: Rarely Drug Use: None Adult General Chief Complaint Chief Complaint: SHORTNESS OF BREATH HPI HPI Patient is a 59-year-old female who was brought here by EMS from home due to trouble breathing. Patient is a smoker, she has COPD, she is not on any oxygen at home. Patient started having trouble breathing about 5 AM this morning, she had used home treatment at home but did not get better so she called EMS to take her here for evaluation. Patient denies any fever, no chest pain. Patient had nonproductive cough. She has history of diabetes and hypertension. Patient denies any history of coronary artery disease. All other ROS is negative unless otherwise noted in HPI Review of Systems Review of Systems See above Current Medications Current Medications Current Medications Medications (Trade) Dose Ordered Sig/Nicolás Start Time Stop Time Status Last Admin Dose Admin Albuterol/ Ipratropium (Duoneb) 3 ml 1X ONCE 11/17/19 07:15 11/17/19 07:16 DC 11/17/19 07:15 3 ML Allergies Allergies Allergies Coded Allergies Type Severity Reaction Last Updated Verified sulfamethoxazole Allergy Intermediate 10/05/19 Yes trimethoprim Allergy Intermediate 10/05/19 Yes orphenadrine Allergy Unknown 11/17/19 Yes Uncoded Allergies Type Severity Reaction Last Updated Verified msg Allergy Unknown Rash 10/05/19 Physical Exam Physical Exam See above Constitutional: Well developed, well nourished, no acute distress, non-toxic appearance. [] HENT: Normocephalic, atraumatic, bilateral external ears normal, oropharynx moist, no oral exudates, nose normal. [] Eyes: PERRLA, EOMI, conjunctiva normal, no discharge. [] Neck: Normal range of motion, no tenderness, supple, no stridor. [] Cardiovascular:Heart rate regular rhythm, no murmur [] Lungs & Thorax: diffused wheezing in all lung pope, no respiratory distress, no stridor. Abdomen: Bowel sounds normal, soft, no tenderness, no masses, no pulsatile masses. [] Skin: Warm, dry, no erythema, no rash. [] Back: No tenderness, no CVA tenderness. [] Extremities: No tenderness, no cyanosis, no clubbing, ROM intact, no edema. [] Neurologic: Alert and oriented X 3, normal motor function, normal sensory function, no focal deficits noted. [] Psychologic: Affect normal, judgement normal, mood normal. [] Current Patient Data Vital Signs Vital Signs Date Time Temp Pulse Resp B/P (MAP) Pulse Ox O2 Delivery O2 Flow Rate FiO2 11/17/19 07:35 98 22 132/55 (80) 94 Nasal Cannula 2.0 11/17/19 06:50 97.9 EKG EKG ekg was read by this physician at 7:18, rate of 87 bpm, sinus rhythm, RBBB, NO STEMI[] Radiology/Procedures Radiology/Procedures [][address] [address] IMAGING REPORT Signed PATIENT: RIMA CHIU ACCOUNT: [id number] : 1955 LOCATION: ER AGE: 64 SEX: F EXAM STATUS: REG ER ORD. PHYSICIAN: ABHINAV MOFFETT MD REASON: sob PROCEDURE: CHEST AP ONLY AP chest. HISTORY: Short of breath AP view was taken of the chest. Lungs are free of infiltrates. Heart is normal in size. There is no pleural effusion. IMPRESSION: 1. No acute infiltrates. Electronically signed by: Quintin Maldonado MD (11/17/2019 7:32 AM) [facility] DICTATED AND SIGNED BY: QUINTIN MALDONADO MD DATE: 11/17/19 0732 CC: ABHINAV MOFFETT MD; VALE FLORES DO; MARIAN POOLE MD ~ Course & Med Decision Making Course & Med Decision Making Pertinent Labs and Imaging studies reviewed. (See chart for details) Patient was given DuoNeb treatment in the ER, 125 Solu-Medrol IV. Patient feels a little better, however her oxygen saturation still low in the 90% without oxygen. We'll admitted to hospital for further treatment. Dragon Disclaimer Dragon Disclaimer This electronic medical record was generated, in whole or in part, using a voice recognition dictation system. Departure Departure: Impression: Primary Impression: COPD exacerbation Disposition: ADMITTED INPATIENT Admitting Physician: Massimo Spears Condition: STABLE Referrals: MARIAN POOLE MD (PCP) VALE FLORES DO Nov 17, 2019 07:55
[2019-11-17 08:05] LABS: INFLUENZA A PATIENT NEGATIVE (NEGATIVE); INFLUENZA B PATIENT NEGATIVE (NEGATIVE)
[2019-11-17] MEDS ORDERED: methylPREDNISolone SOD SUCC PF 125 MG/2 ML VIAL. IV ONE (08:15)
[2019-11-17 08:17] LABS: CALCIUM 8.3 mg/dL (8.5-10.1); CREATININE 0.7 mg/dL (0.6-1.0); GFR 84.8; POTASSIUM 3.4 mmol/L (3.5-5.1)
[2019-11-17 08:30] LABS: ALBUMIN 3.1 g/dL (3.4-5.0); ALBUMIN/GLOBULIN RATIO 0.8 (1.0-1.7); TOTAL BILIRUBIN 0.2 mg/dL (0.2-1.0); TOTAL PROTEIN 6.9 g/dL (6.4-8.2)
[2019-11-17] MEDS ORDERED: ONDANSETRON PF 4 MG/2 ML VIAL. IV PRN (08:30)
[2019-11-17 09:30] VITALS: BP 118/74
[2019-11-17] MEDS: IPRATRPIUM/ALBUTEROL 0.5/2.5MG 3 ML NEBU. NEB SCH ×3 (09:41→20:57)
--- NOTE | 2019-11-17 11:01 | NUR ---
Pt arrived on [facility] at approximately 0930 by EMS, pt currently on 2L O2 NC, non-skid socks applied, 20 g IV in R wrist SL. Pt is wearing brief along with personal gown, telemetry heart monitor applied. Vital Signs at time of admission- Temp-98.0, HR-99, RR-22, O2 Sat-91% 2L NC, BP 118/74. Pt complaint of shortness of breath. RT present upon admission, gave breathing treatment as prescribed. Pt came with personal bag, gown, underwear, no bra, non-skid socks and necklace. Pt stated she had shoes with her but left in them in ER. ER audio/visual manager brought shoes to unit and returned to pt. Pt states she is a newly diagnosed Diabetes Type 2 pt. Pt stated "I take Metformin to control it, no insulin." Pt states she uses walker at home and wheelchair when in public. Hospital walker provided for pt and currently in pt room. Pt states she does have a history of falls, once at beginning of November, and again in October, pt states she went to for both falls and was cleared by [facility]. Pt instructed to call for assistance upon ambulation and bathroom. Call light within reach, bed in lowest position, pt educated about call light policy and how to call for assistance. Pt's son is to bring pt's current medication list today for medicine reconciliation. Pt denies any pain at this time. PT/OT and Dietary consult initiated. Will continue to monitor and assess, currently awaiting 's orders.
[2019-11-17] MEDS ORDERED: DEXTROSE 50% 25 GM / 50ML DISP.SYRIN. IV PRN ×2 (11:30→17:45)
[2019-11-17] MEDS: IV NORMAL SALINE 1,000ML 1,000 ML IV SCH (12:12)
[2019-11-17] MEDS: INSULIN LISPRO 300 UNITS/3 ML VIAL. SQ SCH ×2 (12:42→17:29)
--- NOTE | 2019-11-17 13:35 | NUR ---
Pt complained of pain from peripheral IV placed in ER, placed new peripheral IV 20 gauge, in R hand. Fresh fluid infusing, will continue to monitor and assess as necessary.
[2019-11-17 15:23] VITALS: BP 121/77
--- NOTE | 2019-11-17 15:43 | NUR ---
Pt heart rate 100-124 bpm throughout shift, notified of high heart rate. stated "It is probably because of the medication she is getting." Asked about treating high heart and said "No." Will continue to monitor pt heart rate.
[2019-11-17] MEDS ORDERED: HYDROcodone/APAP 5/325MG 1 TAB TABLET PO PRN (15:45)
[2019-11-17] MEDS: ALBUTEROL SULFATE 2.5 MG/3 ML NEBU. NEB SCH ×2 (15:49→22:00)
--- NOTE | 2019-11-17 15:51 | NUR ---
Pt home medications reconciled and continued by Dr. Spears.
--- NOTE | 2019-11-17 16:12 | HP ---
ADMIT DATE: 11/17/2019 HISTORY OF PRESENT ILLNESS: The patient is a 64-year-old female patient who presented to the Emergency Room with a complaint of shortness of breath that started a couple of days ago associated with cough with yellowish to greenish sputum. She denied any chest pain, denied any chills, rigors or fever. She started having trouble breathing about 5:00 a.m. this morning. She had used her home treatment without getting any better. She called EMS to take her to the Emergency Room for further evaluation. She was evaluated in the Emergency Room and her lab work showed white cell count was normal. Her chemistry showed she had mild hypokalemia and her influenza A and B were negative. Her chest x-ray showed that lungs are free of infiltrate, heart is normal in size. There is no pleural effusion. The patient was admitted with diagnosis of COPD exacerbation. She was given 125 mg of IV Solu-Medrol and DuoNeb treatment and was admitted to continue on her nebulized treatment Solu-Medrol 40 mg IV q. 8 hourly and I will add also doxycycline for possible acute bronchitis. PAST MEDICAL HISTORY: Significant for type 2 diabetes mellitus for which she is on metformin, hypertension, osteoarthritis, chronic back pain. She also has COPD, overactive bladder and bipolar disorder. PAST SURGICAL HISTORY: Significant for total abdominal hysterectomy without oophorectomy, bilateral cataract extraction, cholecystectomy and colonoscopy. ALLERGIES: SHE IS ALLERGIC TO BACTRIM. FAMILY HISTORY: She has 3 brothers and 1 sister, all older. Her father at age of 44 because of myocardial infarction. Mother at age of 83 because of the old age and she had dementia. SOCIAL HISTORY: She is , has 2 daughters and 1 son. She smokes about 5 cigarettes a day and has been smoking since age of 27. She drinks alcohol occasionally. She does not use any drugs. She is on disability for her chronic back pain, bilateral knee pain. She uses a walker at home. Currently, lives with her son. MEDICATIONS: She is currently on following medications: She is on albuterol sulfate 2.5 mg in 3 mL by nebulizer 4 times a day, prazosin 2 mg at bedtime, hydrocodone/APAP 5/325 one tablet every 6 hours. She is on Wellbutrin 150 mg daily, trazodone 200 mg at bedtime. She is on docusate sodium 100 mg twice a day and prednisone 10 mg daily. She is on oxybutynin chloride 5 mg daily. REVIEW OF SYSTEMS: The patient denied any blurring of vision. She had bilateral cataract extraction, but denied any glaucoma or macular degeneration. Denied any earache, tinnitus or sensorineural deafness. She did complain of stuffy nose. Denied any nosebleed or postnasal drip. Denied any sore throat, sore tongue, toothache, hoarseness of voice or difficulty swallowing. Denied any nausea, vomiting, diarrhea or constipation. Denied any hematemesis, melena or hematochezia. Denied any dysuria, frequency or hematuria. Denied any chest pain. She did complain of shortness of breath at rest, on exertion. Denied any orthopnea or paroxysmal nocturnal dyspnea. She has cough with scanty yellowish to greenish sputum. Denied any dizziness, lightheadedness or vertigo. Denied any chills, rigors or fever. PHYSICAL EXAMINATION: GENERAL: On arrival to the Emergency Room, the patient was slightly tachypneic. There is no pallor, jaundice, cyanosis or thyromegaly. No jugular venous distention. No lower limb edema. VITAL SIGNS: Her heart rate was 93. Her blood pressure was 132/55, her temperature was 98, respiratory rate was 22 and oxygen saturation was 94% on 2 liters of oxygen. HEAD, EYES, EARS, NOSE AND THROAT: Showed normocephalic, atraumatic. NECK: Supple. HEART: Showed normal first and second heart sounds. No gallop or murmur. CHEST: Showed central trachea, reduced expansion, reduced air entry, vesicular breath sounds with diffuse wheezing in all lung pope. No respiratory crackles. No stridor. ABDOMEN: Slightly distended, soft, nontender. NEUROLOGIC: She is awake, alert, responding appropriately. All cranial nerves intact. EXTREMITIES: She moves extremities without difficulty. She uses a walker at home. LABORATORY DATA: Her lab work on arrival showed a white cell count of 10,400, hemoglobin 16, hematocrit 48, MCV 95 and platelet count 349,000. Her chemistry showed a serum sodium 135, potassium 3.4, chloride 99, bicarbonate 26, anion gap of 10, BUN 5, creatinine 0.7, estimated GFR was 85 mL per minute. Her glucose was 205, calcium was 8.3. Total bilirubin, AST, ALT, alkaline phosphatase were normal. Total protein is 6.9, albumin 3.1. Her influenza A and B were negative. Her chest x-ray was unremarkable. ASSESSMENT AND PLAN: The patient was admitted with acute COPD exacerbation. We will continue with Solu-Medrol. Continue with bronchodilator. Continue with all other medications. I will reconcile all her home medications. We will monitor her response and decide on further management accordingly. EDOUARD HERRERA MD DR: FELA/reshma JOB#: [id number] / [id number]
--- NOTE | 2019-11-17 17:17 | EKG ---
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
[2019-11-17] MEDS: methylPREDNISolone SOD SUCC PF 40 MG/ML VIAL. IV SCH ×2 (17:22→22:00)
[2019-11-17] MEDS: metFORMIN 500 MG TABLET PO SCH (17:22)
[2019-11-17] MEDS: DOXYCYCLINE HYCLATE 100 MG TABLET PO SCH (17:58)
[2019-11-17 19:33] VITALS: BP 146/85
[2019-11-17] MEDS: DOCUSATE SODIUM 100 MG CAPSULE PO SCH (20:26)
[2019-11-17] MEDS: traZODone 100 MG TABLET. PO SCH (20:26)
[2019-11-17] MEDS: PRAZOSIN 1 MG CAPSULE. PO SCH (20:26)
[2019-11-18 00:21] VITALS: BP 134/76
[2019-11-18] MEDS: IV NORMAL SALINE 1,000ML 1,000 ML IV SCH (02:42)
--- NOTE | 2019-11-18 04:15 | NUR ---
Patient has both DUO neb and ALbuterol ordered. We are giving the DUO neb
[2019-11-18] MEDS: IPRATRPIUM/ALBUTEROL 0.5/2.5MG 3 ML NEBU. NEB SCH (05:45)
[2019-11-18] MEDS: methylPREDNISolone SOD SUCC PF 40 MG/ML VIAL. IV SCH ×2 (05:46→13:31)
[2019-11-18] MEDS: ALBUTEROL SULFATE 2.5 MG/3 ML NEBU. NEB SCH ×5 (06:00→20:19)
[2019-11-18 06:13] VITALS: BP 138/70
[2019-11-18] MEDS: DOXYCYCLINE HYCLATE 100 MG TABLET PO SCH ×2 (08:43→21:00)
[2019-11-18] MEDS: metFORMIN 500 MG TABLET PO SCH ×2 (08:43→17:10)
[2019-11-18] MEDS: DOCUSATE SODIUM 100 MG CAPSULE PO SCH ×2 (08:43→21:00)
[2019-11-18] MEDS: OXYBUTYNIN CHLORIDE 5 MG TABLET PO SCH (08:43)
[2019-11-18] MEDS: buPROPion XL 150 MG TAB.ER.24H PO SCH (08:43)
[2019-11-18] MEDS: INSULIN LISPRO 300 UNITS/3 ML VIAL. SQ SCH ×6 (08:48→17:16)
[2019-11-18 10:50] VITALS: BP 146/80
[2019-11-18] MEDS: NICOTINE 14MG PATCH. TD SCH (11:02)
--- NOTE | 2019-11-18 15:33 | NUR ---
Pt resting in bed. Son at bedside. Oxygen down to 0.5L NC. Nicotine patch ordered and applied. IVF d/c'd. Last dose of solu-medrol tonight. Dr. Spears in to see pt. Plan for d/c tomorrow.
[2019-11-18 15:50] VITALS: BP 143/81
[2019-11-18] MEDS: LACTOBACILLUS RHAMNOSUS GG 1 CAPSULE. PO SCH (21:00)
[2019-11-18] MEDS: PRAZOSIN 1 MG CAPSULE. PO SCH (21:00)
[2019-11-18] MEDS: traZODone 100 MG TABLET. PO SCH (21:00)
[2019-11-18 21:21] VITALS: BP 143/82
--- NOTE | 2019-11-18 23:01 | PN ---
DATE: 11/18/2019 SUBJECTIVE: The patient is resting, slightly propped up, clearly much more comfortable than yesterday. Her oxygen is 99% on 1 liter of oxygen. When I examined her, she looked well and was clearly in no apparent respiratory distress. PHYSICAL EXAMINATION: GENERAL: When I examined her, there was no pallor, jaundice, cyanosis, or thyromegaly. No jugular venous distension. No limb edema. VITAL SIGNS: Her heart rate was 100, blood pressure 146/80, temperature was 98.3, respiratory rate 20, and oxygen saturation was 99% on 2 liters of oxygen. HEAD, EYES, EARS, NOSE AND THROAT: Showed normocephalic, atraumatic. NECK: Supple. HEART: Showed normal first and second heart sounds. No gallop or murmur. CHEST: Shows central trachea, equal bilateral expansion, air entry, vesicular sounds. I could not appreciate any crepitation, but she has few bilateral scattered rhonchi and wheezing. ABDOMEN: Slightly distended, soft, nontender. NEUROLOGIC: She is awake, alert, responding appropriately. All cranial nerves intact. She moves extremities without difficulty. She ambulates with a walker. Her intake was 1587, no output was recorded. No lab work was done this morning. PLAN: To continue with bronchodilator. Continue with steroids, continue with oral doxycycline. I would cut down the methylprednisone to twice a day and discontinue the IV fluid and we will monitor her. Tomorrow we will do a 6-minute walk and if she obviously shows desaturation, we will arrange for her to have home oxygen. EDOUARD HERRERA MD DR: FELA/reshma JOB#: [id number] / [id number]
[2019-11-19 00:29] VITALS: BP 149/87
[2019-11-19] MEDS ORDERED: methylPREDNISolone SOD SUCC PF 40 MG/ML VIAL. IV SCH (02:00)
[2019-11-19] MEDS: ALBUTEROL SULFATE 2.5 MG/3 ML NEBU. NEB SCH ×2 (05:14→10:47)
[2019-11-19 06:16] VITALS: BP 152/94
[2019-11-19 07:10] LABS: HEMATOCRIT 43.5 % (36.0-47.0); HEMOGLOBIN 14.3 g/dL (12.0-15.5); RED BLOOD COUNT 4.58 x10^6/uL (3.50-5.40); RED CELL DISTRIBUTION WIDTH 15.7 % (11.5-14.5); WHITE BLOOD COUNT 16.7 x10^3/uL (4.0-11.0)
[2019-11-19 07:20] LABS: ALBUMIN 2.9 g/dL (3.4-5.0); ALBUMIN/GLOBULIN RATIO 0.9 (1.0-1.7); CALCIUM 8.5 mg/dL (8.5-10.1); CREATININE 0.8 mg/dL (0.6-1.0); GFR 72.7; POTASSIUM 3.8 mmol/L (3.5-5.1); TOTAL BILIRUBIN 0.4 mg/dL (0.2-1.0); TOTAL PROTEIN 6.2 g/dL (6.4-8.2)
[2019-11-19] MEDS: LACTOBACILLUS RHAMNOSUS GG 1 CAPSULE. PO SCH (08:31)
[2019-11-19] MEDS: OXYBUTYNIN CHLORIDE 5 MG TABLET PO SCH (08:31)
[2019-11-19] MEDS: DOCUSATE SODIUM 100 MG CAPSULE PO SCH (08:31)
[2019-11-19] MEDS: DOXYCYCLINE HYCLATE 100 MG TABLET PO SCH (08:32)
[2019-11-19] MEDS: metFORMIN 500 MG TABLET PO SCH (08:32)
[2019-11-19] MEDS: buPROPion XL 150 MG TAB.ER.24H PO SCH (08:32)
[2019-11-19] MEDS: NICOTINE 14MG PATCH. TD SCH (08:32)
[2019-11-19] MEDS: INSULIN LISPRO 300 UNITS/3 ML VIAL. SQ SCH ×4 (08:41→12:17)
[2019-11-19] MEDS ORDERED: LISINOPRIL 20 MG TABLET PO SCH ×2 (09:00)
[2019-11-19 11:21] VITALS: BP 153/82
--- NOTE | 2019-11-20 01:53 | DS ---
DATE OF DISCHARGE: 11/19/2019 HOSPITAL COURSE: The patient was admitted with increasing shortness of breath associated with cough and yellowish to greenish sputum. Denied any chest pain. Denied any chills, rigors or fever. She was evaluated in the Emergency Room. Her white cell count was normal. Her influenza A and B were negative. The patient was admitted with possible acute bronchitis and COPD exacerbation, was started on IV Solu-Medrol. I added doxycycline, continued with nebulizer, albuterol, and Atrovent, and she did very well. She had no more cough or chest tightness or wheezing, has been up and about without difficulty, maintaining her oxygen saturation at 96% at rest and on exertion, and therefore, a decision was made to discharge her home to continue with the tapering course of steroids as well as oral doxycycline, to follow with her primary care physician. PHYSICAL EXAMINATION: GENERAL: When I saw her this afternoon, she looked well and was clearly in no apparent respiratory distress. No pallor, jaundice, cyanosis or thyromegaly. No jugular venous distension. No lower limb edema. VITAL SIGNS: Her heart rate was 114, blood pressure 153/82, temperature was 98.3, respiratory rate 20, and oxygen saturation was 95%. HEAD, EYES, EARS, NOSE AND THROAT: Showed normocephalic, atraumatic. NECK: Supple. HEART: Showed normal first and second heart sounds. No gallop or murmur. CHEST: Clear to auscultation. No crepitation or rhonchi. ABDOMEN: Distended, soft, nontender. No guarding or rigidity. No organomegaly. All hernial orifices intact. Bowel sounds normal. NEUROLOGIC: She is awake, alert, responding appropriately. All her cranial nerves intact. EXTREMITIES: She moves extremities without difficulty. She ambulates without assistance or assistive devices. LABORATORY DATA: This morning showed a white cell count of 16,700, hemoglobin 14, hematocrit 44, MCV 95, and platelet count 277,000. Serum sodium was 138, potassium 3.8, chloride 102, bicarbonate 28, anion gap of 8, BUN 14, creatinine 0.8, estimated GFR was 73 mL per minute. Her glucose was 225, calcium was 8.5. Total bilirubin, AST, ALT, alkaline phosphatase were normal. Total protein was 6.2. Albumin was 2.9. ASSESSMENT: 1. Acute bronchitis. 2. Chronic obstructive pulmonary disease exacerbation. 3. Other medical problems include type 2 diabetes, for which she is on metformin. 4. Hypertension. 5. Osteoarthritis. 6. Chronic back pain. EDOUARD HERRERA MD DR: FELA/reshma JOB#: [id number] / [id number]
== END 2019-11-19 14:00 | disposition home or self-care (01) ==
LOC: ER 06:50 → 1 SOUTH 09:19
PROVIDERS: ADMIT Internal Medicine; ATTEND Internal Medicine
DX: J44.1 Chronic obstructive pulmonary disease with (acute) exacerbation (principal); I10 Essential (primary) hypertension; F31.9 Bipolar disorder, unspecified; M19.90 Unspecified osteoarthritis, unspecified site; Z98.41 Cataract extraction status, right eye; Z98.42 Cataract extraction status, left eye; F17.210 Nicotine dependence, cigarettes, uncomplicated; Z90.710 Acquired absence of both cervix and uterus
CPT/HCPCS: 36415; 71045; 80053; 82947; 83880; 84484; 85025; 85027; 87804; 93005; 94640; 94760; 96372; 96374; 96376; 97110; 97116; 97162; 97166; 99284; G0378; J1815; J2920; J2930; J7613; J7620; G0379; J7030

== ENCOUNTER 2020-01-02 21:42 | Inpatient (IN) | payer MEDICARE, MEDICAID ==
[~2020-01-02] VITALS: Ht 152.4 cm; Wt 83.0 kg
[2020-01-02] MEDS ORDERED: MVI, ADULT NO.4 WITH VIT K 10 ML, FOLIC ACID INJ 1 MG, THIAMINE INJ 100 MG in IV NORMAL... IV ONE ×4 (22:00)
[2020-01-02 22:25] LABS: BASO # 0.1 x10^3/uL (0.0-0.2); BASO % 1 % (0-3); EOS # 0.2 x10^3/uL (0.0-0.7); EOS % 1 % (0-3); HEMATOCRIT 51.4 % (36.0-47.0); HEMOGLOBIN 16.7 g/dL (12.0-15.5); LYMPH # 2.3 x10^3/uL (1.0-4.8); LYMPH % 15 % (24-48); MEAN CORPUSCULAR HEMOGLOBIN 32 pg (25-35); MEAN CORPUSCULAR HGB CONC 33 g/dL (31-37); MEAN CORPUSCULAR VOLUME 99 fL (79-100); MONO # 0.7 x10^3/uL (0.0-1.1); MONO % 4 % (0-9); NEUT # 12.3 x10^3uL (1.8-7.7); NEUT % 79 % (31-73); PLATELET COUNT 477 x10^3/uL (140-400); RED CELL DISTRIBUTION WIDTH 16.2 % (11.5-14.5); WHITE BLOOD COUNT 15.6 x10^3/uL (4.0-11.0)
[2020-01-02 22:35] LABS: CALCIUM 9.1 mg/dL (8.5-10.1); CREATININE 0.6 mg/dL (0.6-1.0); GFR 101.3; POTASSIUM 3.8 mmol/L (3.5-5.1)
[2020-01-02 22:41] LABS: ALBUMIN 3.7 g/dL (3.4-5.0); ALBUMIN/GLOBULIN RATIO 0.9 (1.0-1.7); TOTAL BILIRUBIN 0.1 mg/dL (0.2-1.0); TOTAL PROTEIN 7.6 g/dL (6.4-8.2)
[2020-01-02 22:41] LABS: BARBITURATES NEG (NEG); BENZODIAZEPINES NEG (NEG); CANNABINOIDS NEG (NEG); COCAINE NEG (NEG); METHADONE NEG (NEG); OPIATES NEG (NEG); PHENCYCLIDINE NEG (NEG)
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
[2020-01-02 22:51] LABS: AMPHETAMINE/METHAMPHETAMINE NEG (NEG)
[2020-01-02 22:59] LABS: BACTERIA,URINE 0 /HPF (0-FEW); BILIRUBIN,URINE NEG (NEG); CLARITY,URINE CLEAR; COLOR,URINE YELLOW; GLUCOSE,URINE >=1000 mg/dL (NEG); NITRITE,URINE NEG (NEG); RBC,URINE 0 /HPF (0-2); SQUAMOUS EPITHELIAL CELL,UR OCC /LPF; UROBILINOGEN,URINE 0.2 mg/dL (0.2 mg/dL); WBC,URINE OCC /HPF (0-4)
[2020-01-02 23:05] LABS: % BANDS 8 % (0-9); % EOS 1 % (0-5); % LYMPHS 13 % (24-48); % MONOS 2 % (0-10); % SEGS 76 % (35-66); PLT ESTIMATE INCREASED (ADEQUATE)
[2020-01-02] MEDS ORDERED: methylPREDNISolone SOD SUCC PF 125 MG/2 ML VIAL. IV ONE (23:30)
[2020-01-03] VITALS (7 sets, daily range): BP systolic 104–148; BP diastolic 67–85
[2020-01-03] MEDS ORDERED: ONDANSETRON PF 4 MG/2 ML VIAL. IV PRN
[2020-01-03] MEDS: IV NORMAL SALINE 1,000ML 1,000 ML IV SCH ×3 (01:30→20:30)
[2020-01-03] MEDS ORDERED: IV NORMAL SALINE 1,000ML 1,000 ML IV ONE (04:15)
[2020-01-03] MEDS ORDERED: IPRATRPIUM/ALBUTEROL 0.5/2.5MG 3 ML NEBU. ONE (04:55)
[2020-01-03] MEDS: IPRATRPIUM/ALBUTEROL 0.5/2.5MG 3 ML NEBU. NEB SCH ×5 (05:32→22:41)
[2020-01-03] MEDS ORDERED: EMPA10TA PO (08:52)
[2020-01-03] MEDS ORDERED: cloNIDine HCL 0.1 MG TABLET PO PRN (09:15)
[2020-01-03] MEDS ORDERED: diphenhydrAMINE 50 MG/ML VIAL IVP PRN (09:15)
[2020-01-03] MEDS ORDERED: HALOPERIDOL LACT 5 MG/ML VIAL. IM PRN (09:15)
[2020-01-03 09:25] LABS: BASO # 0.1 x10^3/uL (0.0-0.2); BASO % 1 % (0-3); EOS % 0 % (0-3); HEMATOCRIT 49.2 % (36.0-47.0); HEMOGLOBIN 15.7 g/dL (12.0-15.5); LYMPH # 0.7 x10^3/uL (1.0-4.8); LYMPH % 5 % (24-48); MEAN CORPUSCULAR HEMOGLOBIN 32 pg (25-35); MEAN CORPUSCULAR HGB CONC 32 g/dL (31-37); MEAN CORPUSCULAR VOLUME 100 fL (79-100); MONO # 0.1 x10^3/uL (0.0-1.1); MONO % 1 % (0-9); NEUT # 13.4 x10^3uL (1.8-7.7); NEUT % 94 % (31-73); PLATELET COUNT 384 x10^3/uL (140-400); RED BLOOD COUNT 4.93 x10^6/uL (3.50-5.40); RED CELL DISTRIBUTION WIDTH 16.7 % (11.5-14.5); WHITE BLOOD COUNT 14.3 x10^3/uL (4.0-11.0)
[2020-01-03 09:53] LABS: ALBUMIN 3.3 g/dL (3.4-5.0); ALBUMIN/GLOBULIN RATIO 0.9 (1.0-1.7); CALCIUM 8.4 mg/dL (8.5-10.1); CREATININE 0.8 mg/dL (0.6-1.0); GFR 72.7; POTASSIUM 4.6 mmol/L (3.5-5.1); TOTAL BILIRUBIN 0.2 mg/dL (0.2-1.0)
[2020-01-03] MEDS: MVI, ADULT NO.4 WITH VIT K 10 ML, THIAMINE INJ 100 MG, FOLIC ACID INJ 1 MG in IV NORMAL... IV SCH ×4 (10:26)
[2020-01-03] MEDS ORDERED: DEXTROSE 50% 25 GM / 50ML DISP.SYRIN. IV PRN (13:30)
[2020-01-03] MEDS ORDERED: ALBUTEROL SULFATE 2.5 MG/3 ML NEBU. NEB PRN (13:30)
[2020-01-03] MEDS ORDERED: methylPREDNISolone SOD SUCC PF 40 MG/ML VIAL. IV ONE (14:00)
--- NOTE | 2020-01-03 14:01 | HP ---
ADMIT DATE: 01/02/2020 HISTORY OF PRESENT ILLNESS: The patient is a 64-year-old female patient, who was brought to the Emergency Room by ambulance with alcohol intoxication. The patient was at home, drinking with her son when she became verbally belligerent. The patient had feeling hurt and thought that she should get out of that situation. She called EMS. She denied that he hurt her or struck her in anyway. She does not believe that he would physically hurt her. Her only other complaint is she has COPD. She does not feel like she is wheezing a little bit more. She has been taking her breathing treatment every day as prescribed. Denied any fever or chills. She was evaluated in the Emergency Room. She basically has had lab work, which showed white cell count was high at 15,600. Her chemistry was unremarkable except for blood sugar was slightly high. Urinalysis was essentially unremarkable and toxic screen showed that blood alcohol level was high at 250 mg and therefore, the patient was admitted with diagnosis of alcohol intoxication and COPD exacerbation and was basically continued on her medication and also started on alcohol withdrawal protocol and banana bag. PAST MEDICAL HISTORY: Significant for type 2 diabetes mellitus for which she is on metformin, hypertension, osteoarthritis, chronic back pain. She also has COPD, overactive bladder and bipolar disorder. PAST SURGICAL HISTORY: Significant for total abdominal hysterectomy without oophorectomy, bilateral cataract extraction, cholecystectomy and colonoscopy. ALLERGIES: She is allergic to BACTRIM. FAMILY HISTORY: She has 3 brothers and 1 sister, all older. Her father at the age of 44 because of myocardial infarction. Mother at the age of 83 because of old age and has had dementia. SOCIAL HISTORY: She is , has 2 daughters and 1 son. She smokes about 5 cigarettes a day and has been smoking since the age of 27. She drinks alcohol occasionally. She does not use any drugs. She is on disability for her chronic back pain and bilateral knee pain. She uses a walker at home. Currently lives with her son. MEDICATIONS: She is currently on following medications: She is on albuterol sulfate 2.5 mg by nebulizer every 4 hours, prazosin 2 mg at bedtime, hydrocodone/APAP 5/325 one tablet every 6 hours. She is on Wellbutrin 150 mg once a day, trazodone 200 mg at bedtime, Colace 100 mg twice a day, Jardiance 10 mg daily. She is on oxybutynin chloride 5 mg daily. PHYSICAL EXAMINATION: GENERAL: On arrival to the Emergency Room, she apparently was intoxicated, but there is no pallor, jaundice, cyanosis, or thyromegaly. No jugular venous distension. No limb edema. VITAL SIGNS: Her heart rate was 102, blood pressure was 103/56, temperature 97.9, respiratory rate 22, and oxygen saturation was 93% on room air. HEAD, EYES, EARS, NOSE AND THROAT: Showed normocephalic, atraumatic. NECK: Supple. CARDIAC: Showed normal first and second heart sounds. No gallop, rub or murmur. CHEST: Clear to auscultation. No crepitation or rhonchi. She has bilateral scattered rhonchi. ABDOMEN: Soft, nontender. No guarding or rigidity. No organomegaly. All hernial orifices intact. Bowel sounds normal. NEUROLOGIC: She was awake, alert, responding appropriately. All cranial nerves intact. EXTREMITIES: She moves extremities without difficulty. She ambulates without assistance or assistive devices. LABORATORY DATA: On admission showed her white cell count was 15,600, hemoglobin 16.7, hematocrit 51, MCV 99 and platelet count of 477,000 with normal manual differential. Her chemistry showed a serum sodium 138, potassium 3.8, chloride 100, bicarbonate 25, anion gap of 14, BUN 4, creatinine 0.6, estimated GFR was 11, glucose 148, calcium was 9.1. Total bilirubin, AST, ALT, alkaline phosphatase were normal. Total protein 7.6, albumin 3.7. Her urinalysis showed the urine was yellow, clear with a pH of 5, specific gravity 1.005. The urine was negative for protein, large amount of glucose, negative for ketones, blood, nitrite and negative leukocyte esterase, no rbc's, occasional wbc's, and no bacteria. Her toxic screen was positive for blood alcohol level of 250 mg. The urine was negative for opiates, methadone, barbiturates, phencyclidine, amphetamine, methamphetamine, benzodiazepine and cocaine as well as cannabinoids. No imaging studies were done. ASSESSMENT AND PLAN: The patient was admitted with alcohol intoxication and chronic obstructive pulmonary disease exacerbation. She was started on a banana bag and alcohol withdrawal protocol. We will continue all her medication. I will also start her on nebulized albuterol and Atrovent and steroids and I will also arrange for her to have a chest x-ray. EDOUARD HERRERA MD DR: FELA/reshma JOB#: [id number] / [id number]
--- NOTE | 2020-01-03 15:14 | RAD ---
CHEST PA LATERAL Clinical indications: COPD exacerbation. Comparison: November 17, 2019. Findings: There is an increase in peribronchial thickening consistent with acute bronchitis. No lung consolidation or pleural effusion or Joo B line's or lung mass or pneumothorax is seen. The heart size, pulmonary vasculature, mediastinum and both marlene are stable. The osseous structures appear intact. Impression: Acute bronchitis. Electronically signed by: Jose Zhang MD (01/03/2020 3:10 PM) [facility] [place]
[2020-01-03] MEDS: INSULIN LISPRO 300 UNITS/3 ML VIAL. SQ SCH (17:05)
[2020-01-03] MEDS: methylPREDNISolone SOD SUCC PF 40 MG/ML VIAL. IV SCH (20:49)
[2020-01-03] MEDS: DOCUSATE SODIUM 100 MG CAPSULE PO SCH (20:49)
[2020-01-03] MEDS: OXYBUTYNIN CHLORIDE 5 MG TABLET PO SCH (20:49)
[2020-01-03] MEDS ORDERED: PRAZOSIN 1 MG CAPSULE. PO SCH (21:00)
[2020-01-03] MEDS ORDERED: traZODone 100 MG TABLET. PO SCH (21:00)
[2020-01-03] MEDS ORDERED: NICOTINE 14MG PATCH. TD ONE (21:00)
[2020-01-04] MEDS: IV NORMAL SALINE 1,000ML 1,000 ML IV SCH (02:47)
[2020-01-04] MEDS: IPRATRPIUM/ALBUTEROL 0.5/2.5MG 3 ML NEBU. NEB SCH ×2 (05:20→09:08)
[2020-01-04 05:58] LABS: HEMATOCRIT 46.7 % (36.0-47.0); HEMOGLOBIN 14.7 g/dL (12.0-15.5); RED BLOOD COUNT 4.61 x10^6/uL (3.50-5.40); RED CELL DISTRIBUTION WIDTH 16.7 % (11.5-14.5); WHITE BLOOD COUNT 15.9 x10^3/uL (4.0-11.0)
[2020-01-04 06:08] LABS: CALCIUM 8.3 mg/dL (8.5-10.1); CREATININE 0.6 mg/dL (0.6-1.0); GFR 101.3; POTASSIUM 4.2 mmol/L (3.5-5.1)
[2020-01-04 06:17] VITALS: BP 147/79
[2020-01-04] MEDS: OXYBUTYNIN CHLORIDE 5 MG TABLET PO SCH (08:19)
[2020-01-04] MEDS: methylPREDNISolone SOD SUCC PF 40 MG/ML VIAL. IV SCH (08:23)
[2020-01-04] MEDS: INSULIN LISPRO 300 UNITS/3 ML VIAL. SQ SCH (08:33)
[2020-01-04] MEDS ORDERED: NICOTINE 14MG PATCH. TD SCH (09:00)
[2020-01-04] MEDS: MVI, ADULT NO.4 WITH VIT K 10 ML, THIAMINE INJ 100 MG, FOLIC ACID INJ 1 MG in IV NORMAL... IV SCH ×4 (09:00)
[2020-01-04] MEDS ORDERED: buPROPion XL 150 MG TAB.ER.24H PO SCH (09:00)
[2020-01-04] MEDS: DOCUSATE SODIUM 100 MG CAPSULE PO SCH (09:00)
[2020-01-04 11:31] VITALS: BP 114/60
[2020-01-04] MEDS ORDERED: DEXTROSE 50% 25 GM / 50ML DISP.SYRIN. IV PRN (12:30)
--- NOTE | 2020-01-04 13:22 | DS ---
DATE OF DISCHARGE: TRANSFER SUMMARY HOSPITAL COURSE: The patient is a 64-year-old female patient who was admitted through the Emergency Room with COPD exacerbation as well as alcohol intoxication. The patient expressed her desire to be treated in a treatment facility for her alcoholism. We did contact the [facility] who apparently accepted the patient. The patient was treated with banana bag and was put on alcohol withdrawal protocol and also put on nebulized albuterol and Atrovent as well as IV Solu-Medrol and the patient did very well. PHYSICAL EXAMINATION: GENERAL: When I saw her today, she looked well and was clearly in no apparent respiratory distress. No pallor, jaundice, cyanosis or thyromegaly. No jugular venous distension. No limb edema. VITAL SIGNS: Her heart rate was 92, blood pressure was 147/79, temperature 97.5, respiratory rate 20, and oxygen saturation was 97%. HEAD, EYES, EARS, NOSE AND THROAT: Showed normocephalic, atraumatic. NECK: Supple. HEART: Showed normal first and second heart sounds. No gallop or murmur. CHEST: Clear to auscultation. No crepitation or rhonchi. ABDOMEN: Distended, soft, nontender. NEUROLOGIC: She is awake, alert, responding appropriately. All cranial nerves intact. EXTREMITIES: She moves extremities without difficulty. She ambulates without assistance or assistive devices. Her intake was 1100, no output was recorded. LABORATORY DATA: This morning showed her white cell count to be 15,900, hemoglobin 14, hematocrit 46, MCV 101 and platelet count of 295,000. Her chemistry this morning showed a serum sodium of 140, potassium 4.2, chloride 106, bicarbonate 23, anion gap of 11, BUN 9, creatinine 0.6, estimated GFR was 101. Her glucose was 235, calcium was 8.3. The patient was discharged to [facility] and later to continue on a nicotine patch 14 mg transdermal once a day, Wellbutrin 150 mg once a day, tapering course of steroids, prazosin 2 mg at bedtime, oxybutynin 2.5 mg twice a day, trazodone 200 mg at bedtime, Colace 100 mg twice a day. She was also on albuterol and Atrovent 4 times a day and Humalog insulin as per insulin sliding scale. FINAL DISCHARGE DIAGNOSES: 1. Alcohol intoxication. 2. Chronic obstructive pulmonary disease exacerbation. 3. Type 2 diabetes mellitus for which she is on metformin. 4. Hypertension. 5. Osteoarthritis. 6. Chronic back pain. 7. Chronic obstructive pulmonary disease exacerbation. EDOUARD HERRERA MD DR: FELA/reshma JOB#: [id number] / [id number]
[2020-01-04] MEDS ORDERED: INSU100V41 SQ (14:05)
[2020-01-04] MEDS ORDERED: NICO1PAT25 TP (14:08)
[2020-01-04] MEDS ORDERED: LORA-254 PO (14:10)
[2020-01-04] MEDS ORDERED: METH4TAB2 PO (14:10)
[2020-01-04 14:43] VITALS: BP 182/98
[2020-01-04] MEDS ORDERED: LISINOPRIL 20 MG TABLET PO ONE (15:00)
[2020-01-04 15:04] VITALS: BP 182/98
[2020-01-04] MEDS ORDERED: INSULIN LISPRO 300 UNITS/3 ML VIAL. SQ SCH (17:00)
== END 2020-01-04 16:17 | DRG 190 ==
LOC: ER 21:42 → 1 SOUTH 23:00
PROVIDERS: ADMIT Internal Medicine; ATTEND Internal Medicine
DX: J44.1 Chronic obstructive pulmonary disease with (acute) exacerbation (principal); J96.20 Acute and chronic respiratory failure, unspecified whether with hypoxia or hypercapnia; E11.9 Type 2 diabetes mellitus without complications; F10.229 Alcohol dependence with intoxication, unspecified; F17.210 Nicotine dependence, cigarettes, uncomplicated; F31.9 Bipolar disorder, unspecified; G89.29 Other chronic pain; I10 Essential (primary) hypertension; M19.90 Unspecified osteoarthritis, unspecified site; Z82.49 Family history of ischemic heart disease and other diseases of the circulatory system; Z90.710 Acquired absence of both cervix and uterus; Z88.8 Allergy status to other drugs, medicaments and biological substances
CPT/HCPCS: 36415; 71046; 80048; 80053; 80307; 81001; 82947; 85007; 85025; 85027; 94640; 96365; 96375; G0480; J1815; J2060; J2920; J2930; 99285-25; J7030

== ENCOUNTER → 2020-06-27 | Outpatient (CLI) | payer MEDICARE ==
[~2020-06-27] MED LIST changes: +EMPA10TA PO; +INSU100V41 SQ; +LORA-254 PO; +METH4TAB2 PO; +NICO1PAT25 TP
--- NOTE | 2020-07-01 11:38 | RAD ---
DATE: 06/27/2020 7:53 AM EXAM: MAMMO ROHIT SCREENING BILATERAL HISTORY: Screening COMPARISON: 03/25/2017 Bilateral CC and MLO views of the breasts were performed. Bilateral breast tomosynthesis was performed in CC and MLO projections. This study was interpreted with the benefit of Computerized Aided Detection (CAD). FINDINGS: Breast Density: FATTY The Breast Parenchyma is primarily fatty replaced. Breast parenchyma level density A. No suspicious masses, microcalcifications or architectural distortion is present to suggest malignancy in either breast. The visualized axillae are unremarkable. IMPRESSION: No mammographic evidence of malignancy. BI-RADS CATEGORY: 1 NEGATIVE RECOMMENDED FOLLOW-UP: 12M 12 MONTH FOLLOW-UP Annual screening mammography is recommended, unless clinically indicated sooner based on symptoms or change in physical exam. PQRS compliance statement: Patient information was entered into a reminder system with a target due date for the next mammogram. Mammography is a sensitive method for finding small breast cancers, but it does not detect them all and is not a substitute for careful clinical examination. A negative mammogram does not negate a clinically suspicious finding and should not result in delay in biopsying a clinically suspicious abnormality. "Our facility is accredited by the [employer] Mammography Program."
== END | disposition home or self-care (01) ==
LOC: MAMMO 07:47
PROVIDERS: ATTEND Family Medicine
DX: Z12.31 Encounter for screening mammogram for malignant neoplasm of breast (principal)
CPT/HCPCS: 77063; 77067

== ENCOUNTER 2020-07-24 11:20 | Emergency (ER) | payer MEDICARE ==
[~2020-07-24] VITALS: Ht 152.4 cm; Wt 80.9 kg
[2020-07-24] MEDS ORDERED: KETOROLAC 30 MG/ML VIAL. IM ONE (11:45)
--- NOTE | 2020-07-24 12:18 | PHYS DOC ---
Past History Past Medical History: Arthritis, COPD, Diabetes, Hypertension Additional Past Medical Histor: DDD in back Past Surgical History: Cholecystectomy, Hysterectomy Additional Past Surgical Histo: cataracts bilat Smoking: Cigarettes Alcohol Use: Occasionally Drug Use: None General Adult EDM: Chief Complaint: MECHANICAL FALL HPI: HPI: Patient is a 65-year-old female who presents to the emergency room with right hip and knee pain s/p a mechanical fall that occurred around 10:30 AM today. Patient states that she was holding onto the collar of her dog when he jerked away from her and caused her to lose her balance. She landed on her right side onto her cement porch and was unable to get up on her own. She normally ambulates using a walker. She was down for around 10 minutes before EMS arrived. She was able to bear weight on her right leg with a lot of pain. Patient denies losing consciousness or any head trauma during the fall. She denies using any blood thinners at this time. Denies dizziness, blurry vision, chest pain, shortness of breath, or neck pain. She states she has chronic back pain which has not worsened due to the fall. She admits to using drinking 1 can of beer this morning. Review of Systems: Review of Systems: Constitutional: Denies fever or chills Eyes: Denies redness or eye pain HENT: Denies nasal congestion or sore throat Respiratory: Denies cough or shortness of breath Cardiovascular: Denies chest pain or palpitations GI: Denies abdominal pain, nausea, or vomiting : Denies dysuria or hematuria Musculoskeletal: Reports chronic back pain, right knee pain, right hip pain Integument: Denies rash or skin lesions Neurologic: Denies headache, focal weakness or sensory changes Complete systems were reviewed and found to be within normal limits, except as documented in this note. Current Medications: Current Meds: Current Medications Medications (Trade) Dose Ordered Sig/Nicolás Start Time Stop Time Status Last Admin Dose Admin Ketorolac Tromethamine (Toradol 30mg Vial) 30 mg 1X ONCE 07/24/20 11:45 07/24/20 11:46 DC 07/24/20 11:48 30 MG Allergies: Allergies: Allergies Coded Allergies Type Severity Reaction Last Updated Verified monosodium glutamate Allergy Intermediate Rash 11/19/19 Yes sulfamethoxazole Allergy Intermediate 10/05/19 Yes trimethoprim Allergy Intermediate 10/05/19 Yes orphenadrine Allergy Unknown 11/17/19 Yes Physical Exam: PE: Constitutional: Well developed, well nourished, no acute distress, non-toxic appearance HENT: Normocephalic, atraumatic Eyes: PERRL, EOMI, conjunctiva normal, no discharge Neck: Normal range of motion, no cervical tenderness, supple Lungs & Thorax: No respiratory distress, equal chest rise and fall Abdomen: Soft, no tenderness Pelvic: Small area of contusion to right pelvis with no ecchymosis or abrasions Skin: Warm, dry, no erythema, no rash Back: No tenderness, no CVA tenderness, normal range of motion of the thoracic and lumbar spine Extremities: Moderate tenderness to palpation of the right lateral knee, ROM intact, no edema or abrasions observed, old abrasions to right calvert that are healing appropriately Neurologic: Alert and oriented X 3, normal motor function, normal sensory function, no focal deficits noted, CN II-XII grossly intact b/l. Psychologic: Affect normal, judgment normal Current Patient Data: Vital Signs: Vital Signs Date Time Temp Pulse Resp B/P (MAP) Pulse Ox O2 Delivery O2 Flow Rate FiO2 07/24/20 11:31 98.0 90 18 106/54 (71) 93 Room Air Radiology/Procedures: Radiology/Procedures: PROCEDURE: KNEE RIGHT 3V AP, oblique, and lateral views of the right knee were obtained. Indication: Knee pain after fall Comparison: none. Findings: No fracture, dislocation, significant degenerative changes, or effusion is seen. Impression: 1. Unremarkable examination of the right knee. Electronically signed by: Taran Dixon MD (07/24/2020 12:18 PM) [id number] PROCEDURE: HIP RIGHT 2V WITH PELVIS Single AP view of the pelvis with AP and frog-leg lateral views of the right hip were obtained. History: Reason: knee pain s/p fall / Spl. Instructions: / History: Comparison: none. No fracture is seen about the right proximal femur acetabulum. The femoral head is located in the acetabulum. There is mild to moderate bilateral degenerative change of the hips. Electronically signed by: Taran Dixon MD (07/24/2020 12:18 PM) [id number] Course & Med Decision Making: Course & Med Decision Making Pertinent Imaging studies reviewed. (See chart for details) Patient is a 65-year-old female presents the emergency room with right hip and knee pain s/p a fall that occurred this morning. X-ray of the right knee and hip/pelvis were negative for any acute fractures. Patient was given medications for her pain with improvement. She was instructed to continue RICE therapy at home and take Ibuprofen twice daily PRN for pain. Patient stable for discharge with outpatient follow-up with PCP/Orthopedics if symptoms worsen or persist. Discussed findings and plan with patient, who acknowledges understanding and agreement. Ben Disclaimer: Ben Disclaimer: This electronic medical record was generated, in whole or in part, using a voice recognition dictation system. Splinting Splinting : Location: Right knee Pre-Proc Neuro Vasc Exam: normal Post-Proc Neuro Vasc Exam: normal Progress Right knee mariana wrap Departure Departure: Impression: Primary Impression: Fall Qualified Codes: W19.XXXA - Unspecified fall, initial encounter Additional Impressions: Contusion of right hip Qualified Codes: S70.01XA - Contusion of right hip, initial encounter Strain of right knee Qualified Codes: S86.911A - Strain of unspecified muscle(s) and tendon(s) at lower leg level, right leg, initial encounter Disposition: 01 HOME/RESIDENCE PRIOR TO ADM Condition: STABLE Referrals: MARIAN POOLE MD (PCP) JAMAAL THOMAS MD Patient Instructions: Contusion, [id number], Fall Prevention and Home Safety, [id number], Knee Sprain, [id number], Knee Wraps (Elastic Bandage) and RICE Additional Instructions: USE over the counter Tylenol and/or Ibuprofen for pain or discomfort. ICE area of discomfort 20 min on then leave off next 20 mins. Repeat several times daily for next few days. Justification of Admission: Justification of Admission: Justification of Admission Dx: N/A RANI RIDDLE DO Jul 24, 2020 12:18
--- NOTE | 2020-07-24 12:21 | RAD ---
AP, oblique, and lateral views of the right knee were obtained. Indication: Knee pain after fall Comparison: none. Findings: No fracture, dislocation, significant degenerative changes, or effusion is seen. Impression: 1. Unremarkable examination of the right knee. Electronically signed by: Taran Dixon MD (07/24/2020 12:18 PM) [email or web address]
--- NOTE | 2020-07-24 12:21 | RAD ---
Single AP view of the pelvis with AP and frog-leg lateral views of the right hip were obtained. History: Reason: knee pain s/p fall / Spl. Instructions: / History: Comparison: none. No fracture is seen about the right proximal femur acetabulum. The femoral head is located in the acetabulum. There is mild to moderate bilateral degenerative change of the hips. Electronically signed by: Taran Dixon MD (07/24/2020 12:18 PM) [email or web address]
[2020-07-24 13:06] VITALS: BP 122/59
== END 2020-07-24 13:08 | disposition home or self-care (01) ==
LOC: ER 11:20
DX: S86.911A Strain of unspecified muscle(s) and tendon(s) at lower leg level, right leg, initial encounter (principal); S70.01XA Contusion of right hip, initial encounter; M19.90 Unspecified osteoarthritis, unspecified site; J44.9 Chronic obstructive pulmonary disease, unspecified; E11.9 Type 2 diabetes mellitus without complications; I10 Essential (primary) hypertension; F17.210 Nicotine dependence, cigarettes, uncomplicated; Z88.1 Allergy status to other antibiotic agents; Z88.8 Allergy status to other drugs, medicaments and biological substances; Z88.2 Allergy status to sulfonamides; W18.39XA Other fall on same level, initial encounter; Y93.89 Activity, other specified; Y92.89 Other specified places as the place of occurrence of the external cause; Y99.8 Other external cause status
CPT/HCPCS: 73502; 73562; 96372; 99284; J1885

== ENCOUNTER 2020-10-29 13:36 | Inpatient (IN) | payer MEDICARE ==
[~2020-10-29] VITALS: Ht 152.4 cm; Wt 84.3 kg
[~2020-10-29 13:36] MED LIST changes: -ALBU2.5V5; +ALBU2.5V5 NEB; +AMLO-187 PO; -AMLO10TA8 PO; -BUPR-192 PO; +BUPR150T7 PO
[2020-10-29] MEDS ORDERED: IV NORMAL SALINE 1,000ML 1,000 ML IV ONE ×2 (14:15→15:30)
[2020-10-29] MEDS ORDERED: ONDANSETRON PF 4 MG/2 ML VIAL. IVP ONE (14:15)
[2020-10-29 14:46] LABS: BASO # 0.1 x10^3/uL (0.0-0.2); BASO % 1 % (0-3); EOS # 0.1 x10^3/uL (0.0-0.7); EOS % 1 % (0-3); HEMATOCRIT 50.5 % (36.0-47.0); HEMOGLOBIN 16.8 g/dL (12.0-15.5); LYMPH % 9 % (24-48); MEAN CORPUSCULAR HEMOGLOBIN 32 pg (25-35); MEAN CORPUSCULAR HGB CONC 33 g/dL (31-37); MEAN CORPUSCULAR VOLUME 96 fL (79-100); MONO # 0.6 x10^3/uL (0.0-1.1); MONO % 5 % (0-9); NEUT # 9.6 x10^3uL (1.8-7.7); NEUT % 85 % (31-73); PLATELET COUNT 290 x10^3/uL (140-400); RED BLOOD COUNT 5.28 x10^6/uL (3.50-5.40); RED CELL DISTRIBUTION WIDTH 14.8 % (11.5-14.5); WHITE BLOOD COUNT 11.3 x10^3/uL (4.0-11.0)
[2020-10-29 14:51] LABS: CALCIUM 9.2 mg/dL (8.5-10.1); CREATININE 0.8 mg/dL (0.6-1.0); GFR 72.4; POTASSIUM 4.1 mmol/L (3.5-5.1)
[2020-10-29 14:57] LABS: ALBUMIN 3.4 g/dL (3.4-5.0); ALBUMIN/GLOBULIN RATIO 0.9 (1.0-1.7); TOTAL BILIRUBIN 0.3 mg/dL (0.2-1.0); TOTAL PROTEIN 7.3 g/dL (6.4-8.2)
[2020-10-29 15:04] LABS: INFLUENZA A PATIENT NEGATIVE (NEGATIVE); INFLUENZA B PATIENT NEGATIVE (NEGATIVE)
--- NOTE | 2020-10-29 15:17 | RAD ---
XR CHEST 1V History: Reason: hypoxia, PUI / Spl. Instructions: / History: Comparison: January 03, 2020 Findings: Patchy bibasilar opacities. No pleural effusion. No pneumothorax. Normal heart size. Impression: 1. Mild patchy bibasilar opacities, likely atelectasis. If persistent clinical concern, recommend fo llow-up. Electronically signed by: German Angel DO (10/29/2020 3:15 PM) [id number]
--- NOTE | 2020-10-29 15:20 | PHYS DOC ---
Past History Past Medical History: Arthritis, COPD, Diabetes, Hypertension Additional Past Medical Histor: DDD in back Past Surgical History: Cholecystectomy, Hysterectomy Additional Past Surgical Histo: cataracts bilat Smoking: Cigarettes Alcohol Use: Occasionally Drug Use: None General Adult EDM: Chief Complaint: ABDOMINAL PAIN HPI: HPI: Patient is a 65-year-old female who presents to the emergency department with complaints of diarrhea for the last 4 days and upper abdominal pain with nausea and vomiting that began today. Patient denies having any diarrhea in the last 24 hours. She also denies any bloody stools. Patient reports loss of her sense of taste and smell for the last 4 days. She denies any known Covid exposure. She denies any chest pain, palpitations, fever, shortness of breath, edema, sore throat, sinus pressure, congestion, or headache. Patient reports that she has a chronic smoker's cough and reports that it is due to her COPD. She denies any increase or change in her cough recently. She currently rates her pain a 5 out of 10 on the pain scale, she denies any alleviating factors, the pain is worse with vomiting. Review of Systems: Review of Systems: Complete ROS is negative unless otherwise noted in HPI. Current Medications: Current Meds: Current Medications Medications (Trade) Dose Ordered Sig/Nicolás Start Time Stop Time Status Last Admin Dose Admin Ondansetron HCl (Zofran) 4 mg 1X ONCE 10/29/20 14:15 10/29/20 14:16 DC 10/29/20 14:27 4 MG Sodium Chloride 1,000 ml @ 1,000 mls/hr 1X ONCE 10/29/20 14:15 10/29/20 15:14 DC 10/29/20 14:25 1,000 MLS/HR Allergies: Allergies: Allergies Coded Allergies Type Severity Reaction Last Updated Verified monosodium glutamate Allergy Intermediate Rash 10/29/20 Yes sulfamethoxazole Allergy Intermediate 10/29/20 Yes trimethoprim Allergy Intermediate 10/29/20 Yes orphenadrine Allergy Unknown 10/29/20 Yes Physical Exam: PE: See Above Constitutional: Well developed, well nourished, no acute distress, non-toxic appearance, obese. [] HENT: Normocephalic, atraumatic, bilateral external ears normal, nose normal. [] Eyes: PERRLA, EOMI, conjunctiva injected bilaterally, no discharge. [] Neck: Normal range of motion, no stridor. [] Cardiovascular:Heart rate regular rhythm Lungs & Thorax: Respirations even and unlabored, no retractions, no respiratory distress Abdomen: soft, epigastric and right upper quadrant tenderness to palpation, no rebound, no guarding, no palpable masses Skin: Warm, dry, no erythema, no rash. [] Extremities: No cyanosis, ROM intact, no edema. [] Neurologic: Alert and oriented X 3, no focal deficits noted. [] Psychologic: Affect normal, judgement normal, mood normal. [] Current Patient Data: Labs: Laboratory Tests Test 10/29/20 14:25 Sodium Level 137 mmol/L (136-145) Potassium Level 4.1 mmol/L (3.5-5.1) Chloride Level 100 mmol/L (98-107) Carbon Dioxide Level 31 mmol/L (21-32) Anion Gap 6 (6-14) Blood Urea Nitrogen 8 mg/dL (7-20) Creatinine 0.8 mg/dL (0.6-1.0) Estimated GFR (Cockcroft-Gault) 72.4 BUN/Creatinine Ratio 10 (6-20) Glucose Level 291 mg/dL (70-99) H Calcium Level 9.2 mg/dL (8.5-10.1) Total Bilirubin 0.3 mg/dL (0.2-1.0) Aspartate Amino Transferase (AST) 22 U/L (15-37) Alanine Aminotransferase (ALT) 35 U/L (14-59) Alkaline Phosphatase 121 U/L (46-116) H Total Protein 7.3 g/dL (6.4-8.2) Albumin 3.4 g/dL (3.4-5.0) Albumin/Globulin Ratio 0.9 (1.0-1.7) L Influenza Type A (Rapid) Negative (NEGATIVE) Influenza Type B (Rapid) Negative (NEGATIVE) Vital Signs: Vital Signs Date Time Temp Pulse Resp B/P (MAP) Pulse Ox O2 Delivery O2 Flow Rate FiO2 10/29/20 14:50 96 16 164/85 (111) 90 Room Air 10/29/20 13:40 98.8 EKG: EKG: [] Radiology/Procedures: Radiology/Procedures: PROCEDURE: CHEST AP ONLY XR CHEST 1V History: Reason: hypoxia, PUI / Spl. Instructions: / History: Comparison: January 03, 2020 Findings: Patchy bibasilar opacities. No pleural effusion. No pneumothorax. Normal heart size. Impression: 1. Mild patchy bibasilar opacities, likely atelectasis. If persistent clinical concern, recommend follow-up. [] Heart Score: Risk Factors: Risk Factors: DM, Current or recent (<one month) smoker, HTN, HLP, family history of CAD, obesity. Risk Scores: Score 0 - 3: 2.5% MACE over next 6 weeks - Discharge Home Score 4 - 6: 20.3% MACE over next 6 weeks - Admit for Clinical Observation Score 7 - 10: 72.7% MACE over next 6 weeks - Early Invasive Strategies Course & Med Decision Making: Course & Med Decision Making Pertinent Labs and Imaging studies reviewed. (See chart for details) 1608- I spoke with Dr. Ulloa who is the admitting physician, and care was assumed following discussion of patient. Will admit patient to [facility] for PUI, respiratory failure with hypoxia, and COPD. I will give the patient 1 g of Rocephin and 500 mg of Zithromax IV as requested. Patient's vital signs stable. Patient remains afebrile, appears nontoxic, respirations even and unlabored oxygen saturation increased to 97% with 2 L via nasal cannula. Patient will be admitted to the medical/surgical floor. Patient's case and plan of care also discussed with Dr. Loza [] Ben Disclaimer: Ben Disclaimer: This electronic medical record was generated, in whole or in part, using a voice recognition dictation system. Departure Departure: Impression: Primary Impression: Person under investigation for COVID-19 Additional Impressions: Respiratory failure with hypoxia Qualified Codes: J96.91 - Respiratory failure, unspecified with hypoxia COPD (chronic obstructive pulmonary disease) Qualified Codes: J44.9 - Chronic obstructive pulmonary disease, unspecified Disposition: 09 ADMITTED INPT THIS HOSP Admitting Physician: Amol Ulloa Condition: STABLE Referrals: MARIAN POOLE MD (PCP) FATIMAH REYNOLDS FACER OPERATOR Oct 29, 2020 15:20
[2020-10-29 15:25] LABS: BACTERIA,URINE FEW /HPF (0-FEW); BILIRUBIN,URINE NEG (NEG); CLARITY,URINE CLEAR; COLOR,URINE YELLOW; GLUCOSE,URINE >=1000 mg/dL (NEG); NITRITE,URINE NEG (NEG); SQUAMOUS EPITHELIAL CELL,UR MOD /LPF; UROBILINOGEN,URINE 0.2 mg/dL (0.2 mg/dL)
[2020-10-29] MEDS ORDERED: FAMOTIDINE 20 MG/2 ML VIAL IVP ONE (15:30)
[2020-10-29] MEDS ORDERED: PROCHLORPERAZINE 10 MG/2 ML VIAL. IV ONE (15:30)
[2020-10-29] MEDS ORDERED: diphenhydrAMINE 50 MG/ML VIAL IVP ONE (15:30)
[2020-10-29] MEDS ORDERED: IV NORMAL SALINE 50ML 50 ML ONE (16:29)
[2020-10-29] MEDS ORDERED: IV NORMAL SALINE 250ML 250 ML ONE (16:29)
[2020-10-29] MEDS ORDERED: AZITHROMYCIN 500 MG VIAL. IV ONE (16:29)
[2020-10-29] MEDS ORDERED: cefTRIAXone SODIUM 1 GM VIAL ONE (16:29)
[2020-10-29] MEDS ORDERED: AZITHROMYCIN 500 MG in IV NORMAL SALINE 250ML 250 ML IV ONE (17:00)
--- NOTE | 2020-10-29 18:17 | NUR ---
PATIENT IS 65 Y O FEMALE ARRIVED VIA EMS TO ROOM 120, PT IS A/O X4, CALM AND COOPERATIVE UPON ASSESSMENT, PATIENT DENIED ANY PAIN AT THIS MOMENT, DENIED ANY N/V/D, STATED SHE HAD ABD PAIN WHEN SHE WENT TO ER BUT STATED SHE FEELS BETTER NOW. PATIENT STATED SHE DID HAV N/VX 5 AFTER LUNCH AT HOME BEFORE SHE WENT TO ER. PATIENT IS CURRENTLY ON 2L OF O2 AT 96% , PATIENT HAS A HX OF COPD BUT DOES NOT WEAR O2 AT HOME, CURRENT SMOKER, 1/2 PACK A DAY. PATIENT BELONGINGS INVENTORIED, PT WAS ORIENTED TO THE ROOM AND HOSPITAL POLICIES . WILL CTM.
[2020-10-29 18:25] VITALS: BP 166/95
[2020-10-29 19:49] VITALS: BP 124/82
[2020-10-29] MEDS ORDERED: ALBUTEROL SULFATE 8GM INHALER. INH PRN (20:15)
[2020-10-29] MEDS ORDERED: CARBAMIDE PEROXIDE 6.5% OTIC SOLUTION 15ML BOTTLE. AS PRN (20:15)
[2020-10-29] MEDS ORDERED: METF500T16 PO (20:18)
[2020-10-29] MEDS ORDERED: LISI20TA18 PO (20:18)
[2020-10-29] MEDS ORDERED: CARB-100 LEFT EAR (20:18)
--- NOTE | 2020-10-29 20:53 | NUR ---
Spoke with pt's son, Chinedu, whom she lives with. Son was able to provide list of pt's home meds. Meds entered and reconciled with Dr. Ulloa.
[2020-10-29] MEDS: DOCUSATE SODIUM 100 MG CAPSULE PO SCH (21:00)
[2020-10-29] MEDS ORDERED: ONDANSETRON PF 4 MG/2 ML VIAL. IVP PRN (21:00)
[2020-10-29] MEDS: traZODone 100 MG TABLET. PO SCH (21:19)
[2020-10-29] MEDS: NICOTINE 14MG PATCH. TD SCH (21:19)
[2020-10-29 22:24] VITALS: BP 126/79
[2020-10-30] MEDS: ACETAMINOPHEN 325 MG TABLET PO PRN ×2 (05:28→08:31)
[2020-10-30 05:52] VITALS: BP 103/53
[2020-10-30] MEDS: DOCUSATE SODIUM 100 MG CAPSULE PO SCH ×2 (08:31→21:06)
[2020-10-30] MEDS: buPROPion XL 150 MG TAB.ER.24H PO SCH (08:31)
[2020-10-30] MEDS: metFORMIN 500 MG TABLET PO SCH ×2 (08:31→18:29)
[2020-10-30] MEDS: LISINOPRIL 20 MG TABLET PO SCH (08:31)
[2020-10-30] MEDS: OXYBUTYNIN CHLORIDE 5 MG TABLET PO SCH (08:31)
[2020-10-30] MEDS: NICOTINE 14MG PATCH. TD SCH (08:32)
[2020-10-30] MEDS ORDERED: ASA/APAP/CAFFEINE 250/250/65MG TABLET. PO PRN (10:00)
[2020-10-30] MEDS ORDERED: PROCHLORPERAZINE 10 MG/2 ML VIAL. IV PRN (10:30)
[2020-10-30 11:14] VITALS: BP 173/86
--- NOTE | 2020-10-30 13:30 | HP ---
ADMIT DATE: 10/29/2020 HISTORY OF PRESENT ILLNESS: The patient is a 65-year-old female patient who presented to the Emergency Room with a complaint of abdominal pain, nausea and vomiting. She also complained of diarrhea for the last 4 days and upper abdominal pain with nausea and vomiting that began on the day of admission, she denied any diarrhea for the last 24 hours. She also denied any bloody stools. The patient reported loss of her sense of taste and smell for the last 4 days. Denied any known COVID exposure. She denied any chest pain, palpitation, fever, shortness of breath, edema, sore throat, sinus pressure, congestion or headache. She is known to be a chronic smoker and known to have COPD. Denied any change or increase in her cough recently. She was extensively investigated in the Emergency Room, has had lab work, which showed a white cell count with mild leukocytosis. Her chemistry is mostly unremarkable except hyperglycemia. Urinalysis showed mild proteinuria and glycosuria. However, the urine was negative for nitrites, trace of leukocyte esterase and 5-10 WBC's, and very few bacteria. Her influenza A and B were negative. Her chest x-ray showed mild patchy bilateral opacities, likely atelectasis and persistent clinical concern, recommend followup. The patient was admitted with possible COVID-19 pneumonia, acute hypoxic respiratory failure, possible community-acquired pneumonia. Other medical problems include type 2 diabetes mellitus for which she is on metformin, hypertension, osteoarthritis, chronic back pain. She also has COPD, overactive bladder, and bipolar disorder. PAST SURGICAL HISTORY: Significant for total abdominal hysterectomy without oophorectomy, bilateral cataract extraction, cholecystectomy, and colonoscopy. ALLERGIES: SHE IS ALLERGIC TO BACTRIM. FAMILY HISTORY: She has 3 brothers and 1 sister, all older. Her father at age of 44 because of myocardial infarction and mother at age of 83 because of old age and has had dementia. SOCIAL HISTORY: She is , has 2 daughters and 1 son. She smokes about half a pack a day for the last 25 years. She drinks alcohol very occasionally. She does not use any drugs. She is currently on disability for chronic back pain and bilateral knee pain. She uses a walker at home. Currently lives with her son. MEDICATIONS: She is currently on following medications: She is on albuterol sulfate 2.5 mg by nebulizer solution every 4 hours, Nicoderm patch 14 mg topically daily, lisinopril 20 mg once a day, Wellbutrin XR 150 mg once a day, trazodone 120 mg at bedtime. She is on carbamide peroxide for ear drops for her left ear twice a day. She is also on Colace 100 mg twice a day, metformin 500 mg twice a day, oxybutynin chloride 5 mg daily. REVIEW OF SYSTEMS: As per history of present illness. PHYSICAL EXAMINATION: GENERAL: On arrival to the Emergency Room, the patient was well and was clearly in no apparent respiratory distress. No pallor, jaundice, cyanosis or thyromegaly. No jugular venous distention. No lower limb edema. VITAL SIGNS: Her heart rate was 100, blood pressure was 178/101, temperature was 98.8, respiratory rate was 18 and oxygen saturation was 93% on room air. HEAD, EYES, EARS, NOSE AND THROAT: Showed normocephalic, atraumatic. NECK: Supple. HEART: Showed normal first and second heart sounds. No gallop or murmur. CHEST: Showed central trachea, equal bilateral expansion, air entry, vesicular sounds. No crepitation or rhonchi. ABDOMEN: Distended, soft, nontender. NEUROLOGIC: She was awake, alert, responding appropriately. All cranial nerves intact. EXTREMITIES: She moves extremities without difficulty. LABORATORY DATA: Showed a white cell count of 11,300, hemoglobin 16.8, hematocrit 50.5, MCV 96, and platelet count 290,000. Her chemistry showed a serum sodium 137, potassium 4.1, chloride 100, bicarbonate 31, anion gap of 6, BUN 8, creatinine 0.8, estimated GFR was 72 mL per minute. Her glucose 291, calcium was 9.2. Total bilirubin, AST, ALT were normal. Alkaline phosphatase slightly elevated. Total protein 7.3, albumin 3.4. Urinalysis showed the urine was yellow, clear with a pH of 6, specific gravity 1.025. There is large amount of protein, but the urine was negative. There was large amount of glucose, large amount of protein, small amount of ketones, moderate amount of blood. The urine was negative for nitrite and bilirubin as well as trace of leukocyte esterase. There were 6-10 RBC's, 5-10 WBC's, and moderate or very few bacteria. Her influenza A and B were negative and her chest x-ray showed that the patient has patchy bibasilar opacities, no pleural effusion or pneumothorax, normal heart size. ASSESSMENT AND PLAN: 1. Therefore, the patient was admitted as PUI under investigation for COVID-19. 2. Acute hypoxic respiratory failure. 3. Chronic obstructive pulmonary exacerbation. 4. Community-acquired pneumonia. Other medical problems include type 2 diabetes mellitus, hypertension, chronic obstructive pulmonary disease, and obstructive sleep apnea. The patient was treated with IV ceftriaxone as well as Rocephin and Zithromax. She was continued on all her other medications. EDOUARD HERRERA MD DR: FELA/reshma JOB#: [id number] / [id number]
[2020-10-30 15:04] VITALS: BP 149/74
[2020-10-30] MEDS ORDERED: AZITHROMYCIN 250 MG TABLET. PO SCH (17:00)
[2020-10-30 19:45] VITALS: BP 147/70
[2020-10-30] MEDS: traZODone 100 MG TABLET. PO SCH (21:06)
[2020-10-30 22:34] VITALS: BP 123/80
--- NOTE | 2020-10-31 00:16 | PN ---
DATE: SUBJECTIVE: The patient is resting, slightly propped up in bed, in no apparent distress. She has had no more nausea or vomiting and no more diarrhea. Denied any chest pain or shortness of breath, feeling generally slightly better, although she has lost her sense of smell and taste. PHYSICAL EXAMINATION: GENERAL: When I examined her, she was resting slightly propped up in bed, in no apparent respiratory distress. No pallor, jaundice, cyanosis, or thyromegaly. No jugular venous distention. No lower limb edema. VITAL SIGNS: Her heart rate was 94, blood pressure was 124/82, temperature was 97.5, respiratory rate was 20, and oxygen saturation was 97% on 2 liters of oxygen. HEAD, EYES, EARS, NOSE, AND THROAT: Showed normocephalic, atraumatic. NECK: Supple. HEART: Showed normal first and second heart sounds. No gallop or murmur. CHEST: Clear to auscultation. No crepitation or rhonchi. ABDOMEN: Distended, soft, nontender. NEUROLOGIC: She was awake, alert, responding appropriately. All cranial nerves intact. She moves extremities without difficulty. LABORATORY DATA: On admission showed a white cell count 11,000, hemoglobin 17, hematocrit ____, MCV 96, and platelet count 290. Her chemistry showed a BUN of 8, creatinine 0.8. ASSESSMENT: 1. Patient under investigation for COVID-19, the test result is still pending. 2. Community-acquired pneumonia versus COVID-19 pneumonia. 3. Acute hypoxic respiratory failure. 4. Chronic obstructive pulmonary disease. 5. Type 2 diabetes mellitus. 6. Hypertension. 7. Obstructive sleep apnea. PLAN: To obviously continue with IV antibiotic. Continue with dexamethasone. I will wait for the result of the test, and we will start her on remdesivir if her oxygen requirement increases. EDOUARD HERRERA MD DR: FELA/reshma JOB#: [id number] / [id number]
[2020-10-31 05:39] VITALS: BP 125/75
[2020-10-31 06:58] LABS: HEMATOCRIT 43.9 % (36.0-47.0); HEMOGLOBIN 14.3 g/dL (12.0-15.5); RED BLOOD COUNT 4.48 x10^6/uL (3.50-5.40); WHITE BLOOD COUNT 10.5 x10^3/uL (4.0-11.0)
[2020-10-31 07:08] LABS: ALBUMIN 2.9 g/dL (3.4-5.0); ALBUMIN/GLOBULIN RATIO 0.9 (1.0-1.7); CALCIUM 8.5 mg/dL (8.5-10.1); CREATININE 0.7 mg/dL (0.6-1.0); GFR 84.5; POTASSIUM 3.9 mmol/L (3.5-5.1); TOTAL BILIRUBIN 0.2 mg/dL (0.2-1.0); TOTAL PROTEIN 6.2 g/dL (6.4-8.2)
[2020-10-31] MEDS ORDERED: DEXAMETHASONE SOD PHOS 4 MG/ML VIAL. IVP SCH (09:00)
[2020-10-31] MEDS: metFORMIN 500 MG TABLET PO SCH (09:16)
[2020-10-31] MEDS: DOCUSATE SODIUM 100 MG CAPSULE PO SCH (09:16)
[2020-10-31] MEDS: OXYBUTYNIN CHLORIDE 5 MG TABLET PO SCH (09:16)
[2020-10-31] MEDS: buPROPion XL 150 MG TAB.ER.24H PO SCH (09:16)
[2020-10-31] MEDS: LISINOPRIL 20 MG TABLET PO SCH (09:16)
[2020-10-31] MEDS: NICOTINE 14MG PATCH. TD SCH (09:17)
[2020-10-31 11:02] VITALS: BP 144/81
[2020-10-31] MEDS ORDERED: DEXTROSE 50% 25 GM / 50ML DISP.SYRIN. IV PRN (11:30)
[2020-10-31] MEDS ORDERED: INSULIN LISPRO 300 UNITS/3 ML VIAL. SQ SCH (12:00)
[2020-10-31 14:16] VITALS: BP 159/83
[2020-10-31] MEDS ORDERED: CEFD300C PO (15:18)
[2020-10-31] MEDS ORDERED: AZIT250T PO (15:18)
--- NOTE | 2020-10-31 16:46 | NUR ---
NSG NOTE; DISCHARGE VERBAL AND WRITTEN DISCHARGE INSTRUCTIONS GIVEN TO PT WITH VERBAL UNDERSTANDING WRITTEN RX X2 GIVEN TO PT DISCHARGED TO HOME AT 1644 VIA W/C ACCOMP BY SON WHO PICKED HER UP
--- NOTE | 2020-10-31 19:38 | DS ---
DATE OF DISCHARGE: 10/31/2020 HOSPITAL COURSE: The patient is a 65-year-old female patient who was admitted through the Emergency Room with acute hypoxic respiratory failure. She came complaining of nausea, vomiting, and abdominal pain. She also lost her sense of taste and smell for the last 4 days. She denied any known COVID exposure. Denied any chest pain or palpitation. She is known to be a chronic smoker and known to have COPD. Denied any change or increase in her cough recently. She was extensively investigated in the Emergency Room. Her lab work showed a mild leukocytosis and chemistry was unremarkable except hyperglycemia. Her influenza A and B were negative. Her chest x-ray showed mild patchy bilateral opacities, likely atelectasis versus pneumonia. She was swabbed for COVID-19, was admitted with either COVID-19 pneumonia versus community-acquired pneumonia with acute hypoxic respiratory failure. Her COVID-19 by PCR was negative. The patient did very well. She is now on room air, maintaining her oxygen saturation 94-95%, both at rest and on exertion. She is afebrile, hemodynamically stable. Her white cell count is normal. Her chemistry was normal and decision was made to discharge her home to continue treatment with IV antibiotic for her community-acquired pneumonia as her coronavirus PCR was negative. PHYSICAL EXAMINATION: GENERAL: When I examined her this afternoon, she looked well and was clearly in no apparent distress. No pallor, jaundice, cyanosis or thyromegaly. No jugular venous distention. No limb edema. VITAL SIGNS: Her heart rate was 92, blood pressure 159/83, temperature was 99, respiratory rate 20, and oxygen saturation was 93% on room air. HEAD, EYES, EARS, NOSE AND THROAT: Showed normocephalic, atraumatic. NECK: Supple. HEART: Showed normal first and second heart sounds. No gallop, rub or murmur. CHEST: Clear to auscultation. No crepitation or rhonchi. ABDOMEN: Distended, soft, nontender. NEUROLOGIC: She is grossly intact. LABORATORY DATA: This morning showed a white cell count of 10,000, hemoglobin 14, hematocrit 44, MCV 98 and platelet count 249,000. Her chemistry showed a serum sodium 137, potassium 3.9, chloride 102, bicarbonate 31, anion gap of 7, BUN 7, creatinine 0.7, estimated GFR was 84 mL per minute. Her glucose was __, calcium was 8.5. Total bilirubin, AST, ALT, alkaline phosphatase were normal. Total protein 6.2, albumin was 2.9. Her D-dimer was only 0.31. Urinalysis was essentially unremarkable and her coronavirus by PCR was not detectable. Her influenza A and B were negative. DISCHARGE MEDICATIONS: She was discharged home to continue on Zithromax 250 mg once a day for 4 more days and cefdinir 300 mg twice a day for 7 days, albuterol sulfate by nebulizer every 4 hours, Wellbutrin-XL 150 mg once a day, Colace 100 mg twice a day, lisinopril 20 mg daily, metformin 500 mg twice a day and Nicoderm patch 14 mg topically daily, oxybutynin chloride 5 mg daily and trazodone 200 mg at bedtime. FINAL DISCHARGE DIAGNOSES: 1. Community-acquired pneumonia. 2. Acute hypoxic respiratory failure. 3. COVID-19 was negative. 4. Chronic obstructive pulmonary disease. 5. Type 2 diabetes mellitus. 6. Hypertension. 7. Obstructive sleep apnea. EDOUARD HERRERA MD DR: FELA/reshma JOB#: [id number] / [id number]
[2020-10-31] MEDS ORDERED: LACTOBACILLUS RHAMNOSUS GG 1 CAPSULE. PO SCH (21:00)
== END 2020-10-31 16:46 | disposition home or self-care (01) | DRG 177 ==
LOC: ER 13:58 → 1 SOUTH 16:08 → ER 16:44
PROVIDERS: ADMIT Hospitalist; ATTEND Internal Medicine
DX: J15.6 Pneumonia due to other Gram-negative bacteria (principal); J96.01 Acute respiratory failure with hypoxia; J44.0 Chronic obstructive pulmonary disease with (acute) lower respiratory infection; J44.1 Chronic obstructive pulmonary disease with (acute) exacerbation; J98.11 Atelectasis; J15.9 Unspecified bacterial pneumonia; E11.65 Type 2 diabetes mellitus with hyperglycemia; E78.5 Hyperlipidemia, unspecified; F17.210 Nicotine dependence, cigarettes, uncomplicated; F31.9 Bipolar disorder, unspecified; G47.33 Obstructive sleep apnea (adult) (pediatric); G89.29 Other chronic pain; I10 Essential (primary) hypertension; N32.81 Overactive bladder; Z20.828 Contact with and (suspected) exposure to other viral communicable diseases; Z82.49 Family history of ischemic heart disease and other diseases of the circulatory system; Z90.710 Acquired absence of both cervix and uterus; M19.90 Unspecified osteoarthritis, unspecified site; Z90.49 Acquired absence of other specified parts of digestive tract; Z88.8 Allergy status to other drugs, medicaments and biological substances
CPT/HCPCS: 36415; 71045; 80053; 81001; 82947; 85025; 85027; 85379; 87086; 87804; 94618; J0456; J0696; J0780; J1100; J1815; J2405; J7050; U0003; J7030

== ENCOUNTER 2021-02-16 17:57 | Emergency (ER) | payer MEDICARE ==
[~2021-02-16] VITALS: Ht 152.4 cm; Wt 84.3 kg
[~2021-02-16 17:57] MED LIST changes: +AZIT250T PO; +BUPR150T21 PO; -BUPR150T7 PO; +CARB-100 LEFT EAR; +CEFD300C PO; +LISI20TA18 PO
--- NOTE | 2021-02-16 18:01 | PHYS DOC ---
Past History Past Medical History: Arthritis, COPD, Diabetes, Hypertension Additional Past Medical Histor: DDD in back Past Surgical History: Cholecystectomy, Hysterectomy Additional Past Surgical Histo: cataracts bilat Smoking: Cigarettes Alcohol Use: Occasionally Drug Use: None General Adult HPI: HPI: ",, I was pushing up to get out of bed.. and I got this severe pain in my Rt. wrist.. .. this was wednesday... but the pain has never completely gone away..." Patient is a 65 year old female who presents with above hx and complaints of Rt., wrist injury on Wednesday, 13 February. Patient is right-hand dominant. Patient distal neurovascular is equal to left hand. Patient localizes pain to right scaphoid and wrist area. Patient does have pain with movement of right wrist. There is some pain with loading of the thumb. Patient has past medical history of arthritis, COPD, hypertension, degenerative joint changes, elevated cholesterol, tobacco use, obesity,. Patient has not been evaluated for osteoporosis. The pt. follows with Dr. Jb Diaz. Review of Systems: Review of Systems: Constitutional: Denies fever or chills Eyes: Denies change in visual acuity HENT: Denies nasal congestion or sore throat Respiratory: Denies cough or shortness of breath Cardiovascular: Denies chest pain or edema GI: Denies abdominal pain, nausea, vomiting, bloody stools or diarrhea : Denies dysuria Musculoskeletal: Complains of right wrist pain Integument: Denies rash Neurologic: Denies headache, focal weakness or sensory changes Endocrine: Denies polyuria or polydipsia Lymphatic: Denies swollen glands Psychiatric: Denies depression or anxiety Family History: Family History: Noncontributory to presentation Current Medications: Current Meds: See nursing for home meds Allergies: Allergies: Allergies Coded Allergies Type Severity Reaction Last Updated Verified monosodium glutamate Allergy Intermediate Rash 10/29/20 Yes sulfamethoxazole Allergy Intermediate 10/29/20 Yes trimethoprim Allergy Intermediate 10/29/20 Yes orphenadrine Allergy Unknown 10/29/20 Yes Physical Exam: PE: Constitutional: Moderate acute distress, non-toxic appearance. [] HENT: Normocephalic, atraumatic, bilateral external ears normal, oropharynx moist, no oral exudates, nose normal. [] Eyes: PERRLA, EOMI, conjunctiva normal, no discharge. [] Neck: Normal range of motion, no tenderness, supple, no stridor. [] Cardiovascular:Heart rate regular rhythm, no murmur [] PMI to left Lungs & Thorax: Bilateral breath sounds equal apex with scattered wheezes auscultation [] Abdomen: Bowel sounds normal, soft, no tenderness, no masses, no pulsatile masses. [Obese. Surgery scars, Skin: Warm, dry, no erythema, no rash. [] Back: No tenderness, no CVA tenderness. [] Extremities: No tenderness, no cyanosis, no clubbing, ROM intact, no edema. [] Except findings in right wrist as per HPI. Does have some findings of g eneralized arthritic changes in other joints. Neurologic: Alert and oriented X 3, normal motor function, normal sensory function, no focal deficits noted. [] Psychologic: Affect anxious., judgement normal, mood normal. [] EKG: EKG: [] Radiology/Procedures: Radiology/Procedures: [][place] [address] IMAGING REPORT Signed PATIENT: RIMA CHIU ACCOUNT: [id number] : 1955 LOCATION: ER AGE: 65 SEX: F EXAM STATUS: DEP ER ORD. PHYSICIAN: JOCELYN IRBY MD REASON: Wrist injury PROCEDURE: WRIST 3V RIGHT Exam: Right wrist 3 views INDICATION: Wrist injury TECHNIQUE: Frontal, lateral and oblique views of the right wrist Comparisons: None FINDINGS: Diffuse osteopenia. No acute or healed fractures. Soft tissues are unremarkable. Joint spaces are well-maintained. IMPRESSION: No acute osseous abnormality. If patient is demonstrates snuffbox tenderness recommend splinting with repeat imaging in 5-7 days to rule out an occult scaphoid injury. Electronically signed by: Cristina Sierra MD (02/16/2021 7:58 PM) [facility] DICTATED AND SIGNED BY: CRISTINA SIERRA MD DATE: 02/16/211955 CC: JOCELYN IRBY MD; JB DIAZ MD ~MTH0 0 Heart Score: C/O Chest Pain: N/A Risk Factors: Risk Factors: DM, Current or recent (<one month) smoker, HTN, HLP, family history of CAD, obesity. Risk Scores: Score 0 - 3: 2.5% MACE over next 6 weeks - Discharge Home Score 4 - 6: 20.3% MACE over next 6 weeks - Admit for Clinical Observation Score 7 - 10: 72.7% MACE over next 6 weeks - Early Invasive Strategies Course & Med Decision Making: Course & Med Decision Making Pertinent Labs and Imaging studies reviewed. (See chart for details) Distal neurovascular intact after splint application. Patient elevate wrist. Ice packs as needed. Patient wear splint. Patient take Tylenol and ibuprofen for discomfort. Repeat x-ray in 2 weeks if no improvement. Follow-up with primary care. Consider bone density evaluation. Impression: 1. Right wrist injury- Sprain/Strain [] Dragon Disclaimer: Dragselene Disclaimer: This electronic medical record was generated, in whole or in part, using a voice recognition dictation system. Departure Departure: Referrals: JB DIAZ MD (PCP) Ben Disclaimer This chart was dictated in whole or in part using Voice Recognition software in a busy, high-work load, and often noisy Emergency Department environment. It may contain unintended and wholly unrecognized errors or omissions. JOCELYN IRBY MD Feb 16, 2021 18:01
[2021-02-16] MEDS ORDERED: HYDROcodon/IBUPROFEN 7.5/200MG 1 TAB TABLET PO ONE (19:00)
[2021-02-16 19:20] VITALS: BP 134/78
--- NOTE | 2021-02-16 20:00 | RAD ---
Exam: Right wrist 3 views INDICATION: Wrist injury TECHNIQUE: Frontal, lateral and oblique views of the right wrist Comparisons: None FINDINGS: Diffuse osteopenia. No acute or healed fractures. Soft tissues are unremarkable. Joint spaces are wel l-maintained. IMPRESSION: No acute osseous abnormality. If patient is demonstrates snuffbox tenderness recommend splinting with repeat imaging in 5-7 days to rule out an occult scaphoid injury. Electronically signed by: Cristina Schneider MD (02/16/2021 7:58 PM) [facility]
== END 2021-02-16 19:20 | disposition home or self-care (01) ==
LOC: ER 17:57
DX: S63.501A Unspecified sprain of right wrist, initial encounter (principal); J44.9 Chronic obstructive pulmonary disease, unspecified; E11.9 Type 2 diabetes mellitus without complications; I10 Essential (primary) hypertension; F17.210 Nicotine dependence, cigarettes, uncomplicated; E66.9 Obesity, unspecified; Z68.36 Body mass index [BMI] 36.0-36.9, adult; X50.9XXA Other and unspecified overexertion or strenuous movements or postures, initial encounter; Y93.89 Activity, other specified; Y92.89 Other specified places as the place of occurrence of the external cause; Y99.8 Other external cause status
CPT/HCPCS: 29125; 73110; 99284

== ENCOUNTER → 2021-03-03 | Outpatient (CLI) | payer MEDICARE ==
[2021-02-16 19:20] VITALS: BP 134/78
--- NOTE | 2021-03-04 08:32 | RAD ---
EXAM: 3 views of the right wrist DATE: 03/03/2021 12:23 PM INDICATION: Reason: RIGHT WRIST PAIN, FX / Spl. Instructions: / History: COMPARISON: No Prior FINDINGS/ IMPRESSION: Overlying splint obscures fine bony detail. Equivocal cortical offset at the scaphoid waist suspiciou s for nondisplaced scaphoid fracture and can be confirmed by CT or MRI if clinically indicated. Decre ased bone mineral density. Electronically signed by: Samson Mujica MD (03/04/2021 8:30 AM) [id number]
== END ==
LOC: DXRAD 12:07
PROVIDERS: ATTEND Family Medicine
DX: S69.91XA Unspecified injury of right wrist, hand and finger(s), initial encounter (principal); X58.XXXA Exposure to other specified factors, initial encounter; Y93.89 Activity, other specified; Y92.89 Other specified places as the place of occurrence of the external cause; Y99.8 Other external cause status
CPT/HCPCS: 73110